=== PATIENT | male | born 1940 | race Caucasian/White ===

== ENCOUNTER → 2022-10-06 | Outpatient (CLI) | payer MEDICARE, OTHER, SELFPAY ==
[2022-10-06 13:08] LABS: Erythrocyte Sedimentation Rate 9 mm/hr (0-20)
[2022-10-06 13:13] LABS: Absolute Lymphocyte Count 2.74 X10^3/uL (0.83-4.51); Absolute Neutrophil Count 7.9 X10^3/uL (2.0-7.7); Basophil# 0.08 X10^3/uL; Basophil% 0.7 % (0-1); Eosinophil# 0.05 X10^3/uL; Eosinophils% 0.4 % (0-5); Hematocrit 38.5 % (40-54); Lymphocyte # 2.74 X10^3/ul (0.83-4.51); Lymphocyte % 23.2 % (19-41); Mean Corp Hgb Conc 31.2 g/dL (32-36); Mean Corpuscular Hgb 20.5 pg (27.0-32.0); Mean Corpuscular Volume 65.9 fL (80-94); Mean Platelet Vol. 10.1 fl (6.2-12.0); Monocyte# 0.94 X10^3/uL; NRBC Flagged by Analyzer 0 % (0-5); Neutrophil # 7.88 X10^3/uL (2.7-7.7); Neutrophil % 66.9 % (47-70); Platelet Count 265 K/mm3 (150-450); RBC Distribution Width CV 19.5 % (11.6-14.6); RBC Distribution Width SD 41.2 fl (35.1-43.9); Red Blood Count 5.84 M/mm3 (4.6-6.2); White Blood Count 11.8 K/mm3 (4.4-11.0)
[2022-10-06 13:18] LABS: ALB/GLOB Ratio 1.2 RATIO (0.9-2.4); AST(SGOT) 29 U/L (15-37); Alanine Aminotransfer ALT/SGPT 38 U/L (16-61); Albumin, Serum 3.9 g/dL (3.2-5.0); Alkaline Phosphatase 54 U/L (45-117); Anion Gap 10 (5-15); BUN 24 mg/dL (7-18); BUN/Creat Ratio 18.9 RATIO (10-20); CRP < 2.90 mg/L (0.0-3.0); Chloride 108 mmol/L (98-107); Creatinine, Serum 1.27 mg/dL (0.70-1.30); EST Glomerular Filtration Rate 58 mL/min (>60); Est Glom Filt Rate - Afr Amer 70 mL/min (>60); Globulin 3.2 g/dL (2.2-4.2); Glucose 103 mg/dL (74-106); Potassium 3.7 mmol/L (3.5-5.1); Protein, Total 7.1 g/dL (6.4-8.2); Rheumatoid Factor < 10.0 IU/mL (<15); Sodium Level 142 mmol/L (136-145)
[2022-10-06 13:32] LABS: Hepatitis B Surface Antibody Non-Reactive; Hepatitis B Surface Antigen Non-Reactive (Nonreactive); Hepatitis C Antibody Non-Reactive (Nonreactive)
[2022-10-07 13:07] LABS: CCP IgG Antibodies 6 units (0-19)
[2022-10-07 14:09] LABS: ANTINUCLEAR ANTIBODIES DIRECT Negative (Negative)
== END | disposition home or self-care (01) ==
PROVIDERS: PCP Registered Nurse; Referring Provider Internal Medicine Rheumatology; Visit Provider Internal Medicine Rheumatology
DX: M06.4 Inflammatory polyarthropathy (principal); I10 Essential (primary) hypertension; E78.5 Hyperlipidemia, unspecified
CPT/HCPCS: 36415; 80053; 85025; 85652; 86038; 86140; 86200; 86431; 86706; 86803; 87340

== ENCOUNTER → 2022-11-26 | Outpatient (CLI) | payer MEDICARE, OTHER, SELFPAY ==
[2022-11-26 12:44] LABS: Absolute Lymphocyte Count 1.78 X10^3/uL (0.83-4.51); Absolute Neutrophil Count 6.3 X10^3/uL (2.0-7.7); Basophil# 0.06 X10^3/uL; Basophil% 0.7 % (0-1); Eosinophil# 0.11 X10^3/uL; Eosinophils% 1.2 % (0-5); Hematocrit 35.5 % (40-54); Hemoglobin 11.4 g/dL (13.0-16.5); Lymphocyte # 1.78 X10^3/ul (0.83-4.51); Lymphocyte % 20.2 % (19-41); Mean Corp Hgb Conc 32.1 g/dL (32-36); Mean Corpuscular Hgb 21.1 pg (27.0-32.0); Mean Corpuscular Volume 65.6 fL (80-94); Mean Platelet Vol. 10.2 fl (6.2-12.0); Monocyte# 0.55 X10^3/uL; Monocyte% 6.2 % (0-10); NRBC Flagged by Analyzer 0 % (0-5); Neutrophil # 6.29 X10^3/uL (2.7-7.7); Neutrophil % 71.4 % (47-70); Platelet Count 271 K/mm3 (150-450); RBC Distribution Width CV 17.2 % (11.6-14.6); RBC Distribution Width SD 38.9 fl (35.1-43.9); Red Blood Count 5.41 M/mm3 (4.6-6.2); White Blood Count 8.8 K/mm3 (4.4-11.0)
[2022-11-26 12:55] LABS: ALB/GLOB Ratio 1.2 RATIO (0.9-2.4); AST(SGOT) 19 U/L (15-37); Alanine Aminotransfer ALT/SGPT 25 U/L (16-61); Albumin, Serum 3.7 g/dL (3.2-5.0); Alkaline Phosphatase 52 U/L (45-117); Anion Gap 6 (5-15); BUN 12 mg/dL (7-18); BUN/Creat Ratio 8.8 RATIO (10-20); Calcium,Total 9.1 mg/dL (8.5-10.1); Chloride 107 mmol/L (98-107); Creatinine, Serum 1.36 mg/dL (0.70-1.30); EST Glomerular Filtration Rate 53 mL/min (>60); Est Glom Filt Rate - Afr Amer 64 mL/min (>60); Globulin 3.1 g/dL (2.2-4.2); Glucose 132 mg/dL (74-106); Potassium 3.6 mmol/L (3.5-5.1); Protein, Total 6.8 g/dL (6.4-8.2); Sodium Level 139 mmol/L (136-145)
== END | disposition home or self-care (01) ==
LOC: MTLAB 09:47
PROVIDERS: PCP Registered Nurse; Referring Provider Internal Medicine Rheumatology; Visit Provider Internal Medicine Rheumatology
DX: M06.4 Inflammatory polyarthropathy (principal); I10 Essential (primary) hypertension
CPT/HCPCS: 36415; 80053; 85025

== ENCOUNTER → 2023-02-22 | Outpatient (CLI) | payer MEDICARE, OTHER, SELFPAY ==
[2023-02-22 12:16] LABS: Absolute Lymphocyte Count 2.05 X10^3/uL (0.83-4.51); Absolute Neutrophil Count 6.5 X10^3/uL (2.0-7.7); Basophil# 0.08 X10^3/uL; Basophil% 0.8 % (0-1); Eosinophil# 0.17 X10^3/uL; Eosinophils% 1.8 % (0-5); Hematocrit 38.3 % (40-54); Hemoglobin 11.7 g/dL (13.0-16.5); Lymphocyte # 2.05 X10^3/ul (0.83-4.51); Lymphocyte % 21.7 % (19-41); Mean Corp Hgb Conc 30.5 g/dL (32-36); Mean Corpuscular Hgb 19.8 pg (27.0-32.0); Mean Corpuscular Volume 64.9 fL (80-94); Mean Platelet Vol. 10.2 fl (6.2-12.0); Monocyte# 0.64 X10^3/uL; Monocyte% 6.8 % (0-10); NRBC Flagged by Analyzer 0.2 % (0-5); Neutrophil # 6.46 X10^3/uL (2.7-7.7); Neutrophil % 68.3 % (47-70); Platelet Count 227 K/mm3 (150-450); RBC Distribution Width CV 19.3 % (11.6-14.6); RBC Distribution Width SD 40.3 fl (35.1-43.9); White Blood Count 9.5 K/mm3 (4.4-11.0)
[2023-02-22 13:30] LABS: ALB/GLOB Ratio 1.2 RATIO (0.9-2.4); AST(SGOT) 20 U/L (15-37); Alanine Aminotransfer ALT/SGPT 30 U/L (16-61); Albumin, Serum 3.8 g/dL (3.2-5.0); Alkaline Phosphatase 65 U/L (45-117); Anion Gap 6 (5-15); BUN 12 mg/dL (7-18); BUN/Creat Ratio 9.4 RATIO (10-20); Chloride 111 mmol/L (98-107); Creatinine, Serum 1.28 mg/dL (0.70-1.30); EST Glomerular Filtration Rate 57 mL/min (>60); Est Glom Filt Rate - Afr Amer 69 mL/min (>60); Globulin 3.2 g/dL (2.2-4.2); Glucose 133 mg/dL (74-106); Potassium 3.8 mmol/L (3.5-5.1); Sodium Level 142 mmol/L (136-145)
== END | disposition home or self-care (01) ==
LOC: MTLAB 11:26
PROVIDERS: PCP Registered Nurse; Referring Provider Internal Medicine Rheumatology; Visit Provider Internal Medicine Rheumatology
DX: M06.4 Inflammatory polyarthropathy (principal); I10 Essential (primary) hypertension; E78.5 Hyperlipidemia, unspecified; N20.0 Calculus of kidney
CPT/HCPCS: 36415; 80053; 85025

== ENCOUNTER → 2023-06-07 | Outpatient (CLI) | payer MEDICARE, OTHER, SELFPAY ==
--- OUTSIDE RECORDS SUMMARY | 2023-06-07 15:02 | XMS RPT_ITS | CCD ---
Author Name Unknown Address [address] [place] [address] Organization [facility] Care Team Providers Care Drawer Fitter Name Role Phone JOSLYN FRYE, CHEYANNE Hutson Attending Unavailable SUNNY ROSAS-CAR SUPPLIER, WANDA Armstrong Referring Un available SUNNY ROSAS-CAR SUPPLIER, WANDA Armstrong Attending Un available SUNNY ROSAS-CAR SUPPLIER, WANDA Armstrong Primary Care Un available ROCK ROSAS-CAR SUPPLIERMIGUELINA Attending Unavailabl e SUNNY HENLEYN-CAR SUPPLIER, WANDA Armstrong Primary Care Un available SUNNY HENLEYN-CAR SUPPLIER, WANDA Armstrong Primary Care Physi rodrick Medications Current Medications Medication Drug Class(es) Dates Sig (Normalized) Sig (Original) acetaminophen 325 mg / HYDROcodone bitartrate 5 mg oral tablet (1 source) Opioid Agonist Start: 07-10-2022 End: 07-13-2022 take 1 tablet by mouth every six hours as needed for pain Medanales 325- 5 mg oral tablet Dose = 1 tab(s), Oral, q6h, PRN for pain, X 3 day(s), # 12 tab(s), 0 Refill(s), [facility]acy: [id number], Right hip pain, 172, cm, 02/17/22 7:27:00 EDT, Height, 89.1, kg, 02/17/22 7:27:00 EDT, Dosing Weight Start Date: 07/10/22 Stop Date: 07/13/22 Status: Ordered amLODIPine 5 mg oral tablet (3 sources) Dihydropyridine Calcium Channel Camelia Start: 03-04-2023 End: 02-27-2024 amLODIPine 5 mg oral tablet Dose : 5 mg = 1 tab(s), Oral, qDay, # 90 tab(s), 3 Refill(s), Pharmacy: [facility]/pharmacy #[id number], 172, cm, 03/04/23 13:41:00 EDT, Height, kg, 03/04/23 13:34:00 EDT, Dosing Weight Start Date: 03/04/23 Stop Date: 02/27/24 Status: Ordered Completed/Discontinued Medications Medication Drug Class(es) Dates Sig (Normalized) Sig (Original) Misc Medication (1 source) Start: 03-04-2023 Misc Medication See Instructions, 1 Tablespoons daily of Apple Cider Vinegar, 0 Refill(s), 89.1 Start Date: 03/04/23 Status: Ordered Problems Active Problems Problem Classification Problem Date Documented Date Episodic/Chronic Calculus of urinary tract (3 sources) Recurrent kidney stone 02-17-2022 Episodic Chronic kidney disease (1 source) Chronic kidney disease stage 3 03-04-2023 Chronic Diabetes mellitus without complication (1 source) Hyperglycemia 03-04-2023 Episodic Essential hypertension (3 sources) Hypertensive disorder 02-17-2022 Chronic Genitourinary symptoms and ill-defined conditions (3 sources) Nocturia 02-17-2022 Episodic Hemorrhoids (3 sources) Hemorrhoids 02-17-2022 Episodic Malaise and fatigue (2 sources) Other fatigue; Translations: [Other fatigue] Onset: 05-26-2023 Episodic Other hematologic conditions (3 sources) History of anemia 02-17-2022 Episodic Other male genital disorders (3 sources) 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 Other non-traumatic joint disorders (1 source) Pain in right hip joint; Translations: [Pain in right hip] Onset: 07-10-2022 Episodic Unclassified (1 source) Patient encounter status 03-04-2023 Past or Other Problems Problem Classification Problem Date Documented Da te Episodic/Chronic Other non-traumatic joint disorders (2 sources) Pain in right hip; Translations: [Pain in right hip] Onset: 07-10-2022 Episodic Results Test Name Value Interpretation Reference Range Facil ity Vital Signs Date Time Vital Sign Value Performing Clinician Melchor arrieta 07-10-2022 10:19-0500 Body temperature 97.7 [degF] CHEYANNE JORGENSEN MD [facility] 07-10-2022 10:19-0500 Diastolic Blood Pressure Non-Invasive 82 1 CHEYANNE JORGENSEN MD [facility] 07-10-2022 10:19-0500 Heart rate 75 /min CHEYANNE JORGENSEN MD [facility] 07-10-2022 10:19-0500 Respiratory rate 18 /min CHEYANNE JORGENSEN MD [facility] 07-10-2022 10:19-0500 Systolic Blood Pressure Non-Invasive 157 1 CHEYANNE JORGENSEN MD [facility] Encounters Encounter Date Encounter Type Care Provider Facility Start: 05-26-2023 End: 05-31-2023 ambulatory [facility] Facility:B Start: 05-26-2023 End: 05-30-2023 Outreach Lab [facility] Start: 07-23-2022 End: 08-31-2022 ambulatory WANDA CORREA [employer] [employer] SUP[employer]IER Facility:B Start: 07-10-2022 End: 07-10-2022 Emergency department patient visit CHEYANNE JORGENSEN MD Facility:B Start: 07-10-2022 End: 07-10-2022 Emergency department patient visit CHEYANNE JORGENSEN MD [facility] Start: 03-04-2022 End: 03-04-2022 Patient encounter procedure WANDA CORREA [employer]NAL [employer] Procedures Date Procedure Procedure Detail Performing Clinician Infectious disease (disorder) WANDA CORREA INTERNAL WHOLESALER-CAR SUPPLIER Immunizations Immunization Date Immunization Notes Care Provider [facility] 03-04-2023 influenza, high dose seasonal, preservative-free; Translations: [Fluad Quadrivalent PF ] [facility] Payers Date Payer Category Payer Private Health Insurance [id number] 2022 Medicare [id number] 1940 Unknown [id number] 1940 Unknown [id number] 1940 Unknown [id number] Social History Date Type Detail Facility Start: 02-17-2022 Tobacco smoking status Never s moked tobacco (finding) [facility] Sex Assigned At Sex [facility] Functional Status Date Assessment Result Facility 07-10-2022 Functional Status Independent [facility] 07-10-2022 Functional Status Standard Safet y ID band on, Call device within reach, Bed in low position, Wheels locked, Upper/Half-Length side-rails up, Phone within reach, personal items within reach, Assistive devices within reach, Toileting device within reach, Bedside Cart Locked, Visitor at bedside, Safety level maintained [facility] Mental Status Date Assessment Result Facility 07-10-2022 Mental Status Orientation Oriented x 4 [facility] 07-10-2022 Mental Status [facility] Clinical Notes 03-04-2022 to 05-26-2023 LaboratoryLaboratory Note Date & Type Note Facility 05-26-2023 SARS-CoV-2 (COVID-19) RNA JL+probe Ql (Nph) Negative *NA* (05/26/23 11:28 AM) AO Auto Urine SS 03-04-2023 Evaluation + Plan note Future Scheduled [id number] Hemoglobin 03/04/23Lipid Profile 03/04/23Lipid Profile 08/27/22Albumin/Creatinine Ratio, Random Urine 03/04/23Microalbumin Level Urine 08/27/22Complete Metabolic Panel 08/27/22 [facility]thel 07-10-2022 Hospital Discharg e instructions Patient Education 07/10/2022 11:18:38 Osteoarthritis Osteoarthritis Osteoarthritis (also called degenerative joint disease) happens when the cartilage in a joint becomes damaged and worn. This may be due to age, wear and tear, overuse of the joint, or other problems. Osteoarthritis can affect any joint. But it is most common in hands, knees, spine, hips, and feet. Symptoms include joint stiffness, pain, and swelling. Home care When a joint is more sore than usual, rest it for a day or two. Heat can help relieve stiffness. Take a hot bath or apply a heating pad for up to 30 minutes at a time. If symptoms are worse in the morning, using heat just after awakening can help relax the muscle and soothe the joints. Ice helps relieve pain and swelling. It is often used after activity. Use a cold pack wrapped in a thin cloth on the joint for 10 to 15 minutes at a time. Alternating hot and cold can also help relieve pain. Try this for 20 minutes at a time, several times per day. Exercise helps prevent the muscles and ligaments around the joint from becoming weak. It also helps maintain function in the joint. Be as active as you can. Talk to your healthcare provider about what activity program is best for you. Excess weight puts a lot of extra strain on weight-bearing joints of the lower back, hips, knees, feet and ankles. If you are overweight, talk to your healthcare provider about a safe and effective weight loss program. Use anti-inflammatory medicines as prescribed for pain. This includes acetaminophen or NSAIDs such as ibuprofen or naproxen. If needed, topical or injected medicines may be recommended. Talk to your healthcare provider if these options are not enough to manage your pain. Talk with your healthcare provider about devices that might help improve your function and reduce pain. Follow-up care Follow up with your healthcare provider as advised by our staff. When to seek medical advice Call your healthcare provider right away if any of these occur: Redness or swelling of a painful joint Discharge or pus from a painful joint Fever of 100.4 F (38 C) or higher, or as directed by your healthcare provider Worsening joint pain Decreased ability to move the joint or bear weight on the joint [id number] [employer]. [address] [place] [address]69. All rights reserved. This information is not intended as a substitute for professional medical care. Always follow your healthcare professional's instructions. 07/10/2022 11:18:32 Hip Strain Hip Strain You have a strain of the muscles around the hip joint. A muscle strain is a stretching or tearing of muscle fibers. This causes pain, especially when you move that muscle. There may also be some swelling and bruising. Home care Stay off the injured leg as much as possible until you can walk on it without pain. If you have a lot of pain with walking, crutches or a walker may be prescribed. These can be rented or purchased at many pharmacies and surgical or orthopedic supply stores. Follow your healthcare provider's advice about when to start putting weight on that leg. Apply an ice pack over the injured area for 15 to 20 minutes every 3 to 6 hours. Do this for the first 24 to 48 hours. You can make an ice pack by filling a plastic bag that seals at the top with ice cubes and then wrapping it with a thin towel. Be careful not to injure your skin with the ice treatments. Ice should never be applied directly to skin. Continue the use of ice packs for relief of pain and swelling as needed. After 48 hours, apply heat (warm shower or warm bath) for 15 to 20 minutes several times a day, or alternate ice and heat. You may use kixl-kem-[id number] pain medicine to control pain, unless another pain medicine was prescribed. If you have chronic liver or kidney disease or ever had a stomach ulcer or gastrointestinal bleeding, talk with your healthcare provider before using these medicines. If you play sports, you may resume these activities when you are able to hop and run on the injured leg without pain. Follow-up care Follow up with your healthcare provider, or as advised. If your symptoms don't start to get better after a week, more tests may be needed. If X-rays were taken, you will be told of any new findings that may affect your care. When to seek medical advice Call your healthcare provider right away if any of these occur: Increased swelling or bruising Increased pain Losing the ability to put weight on the injured side [phone] [employer]. [address] [place] [address]855. All rights reserved. This information is not intended as a substitute for professional medical care. Always follow your healthcare professional's instructions. Follow Up Care 07/10/2022 10:10:22 With:ADAM COLE MD Address: [address] [employer] [place] [address] [phone] When:2-4 days [facility] 07-10-2022 Emergency department Discharge summary Discharge Instructions Thank you for allowing [facility] to assist you with your healthcare needs. The following is important discharge information regarding your hospital visit. Diagnosis from Today's Visit Right hip pain Hip pain-swelling What to Do Next Instructions from Your Care Team No qualifying data available. Post Acute Orders No qualifying data available. You Need to Schedule the Following Appointments Follow Up with ADAM COLE MD When Within 2-4 days Where: [address] [facility] [address] [facility] [place] [address] [phone] Allergies NKA Medications Please ask your primary doctor or pharmacist before taking any other medication not listed, including over the counter drugs, herbal medications, vitamins and or supplements as they may interact with your home medications. What How Much When Why Instructions Last Dose New acetaminophen-hydrocodone (Medanales 325- 5 mg oral tablet) 1 tab(s) by mouth Every 6 hours as needed for for pain Right hip pain Duration: 3 Days Pickup at [facility]/pharmacy #[id number] New predniSONE (predniSONE 20 mg oral tablet) 2 tab(s) by mouth Once a day with a meal Right hip pain Duration: 6 Days Pickup at [facility]/pharmacy #[id number] Unchanged amLODIPine (amLODIPine 5 mg oral tablet) 1 tab(s) by mouth Once a day Duration: 90 Days Unchanged atenolol (atenolol 50 mg oral tablet) 1 tab(s) by mouth Once a day Duration: 90 Days Unchanged cholecalciferol (Vitamin D3 125 mcg (5000 intl units) oral capsule) 1 cap by mouth Once a day Duration: 90 Days Unchanged cyanocobalamin (Vitamin B12 2500 mcg sublingual tablet) 1 tab(s) under the tongue Every day Fatigue Duration: 90 Days Unchanged multivitamin (Multivitamin) 1 tab(s) by mouth Every day Unchanged multivitamin (Super B Complex oral tablet) 1 tab(s) by mouth Every day Unchanged pantoprazole (pantoprazole 40 mg oral enteric coated tablet) 1 tab(s) by mouth Once a day before a meal Duration: 90 Days Unchanged simvastatin (simvastatin 20 mg oral tablet) 1 tab(s) by mouth Once a day Duration: 90 Days Unchanged tamsulosin (tamsulosin 0.4 mg oral capsule) 1 cap by mouth Once a day Duration: 90 Days Pharmacy Information [facility]/pharmacy #[id number]: [address], [place] [id number] [phone] Please take this list to your next doctor s visit. Bring all medications you take, including over the counter medications, herbals and other supplements with you to your doctor s visit. Patients and families are reminded to discard old lists and to update any records with all medication providers or retail pharmacies. Medication Leaflets prednisone (PRED ni sone) Jennifer What is the most important information I should know about prednisone? You should not use prednisone if you have a fungal infection anywhere in your body. You should not stop using prednisone suddenly. Follow your doctor's instructions about tapering your dose. What is prednisone? Prednisone is a steroid that reduces inflammation in the body, and also suppresses your immune system. Prednisone is used to treat many different conditions such as hormonal disorders, skin diseases, arthritis, lupus, psoriasis, allergic conditions, ulcerative colitis, Crohn's disease, eye diseases, lung diseases, asthma, tuberculosis, blood cell disorders, kidney disorders, leukemia, lymphoma, multiple sclerosis, organ transplant rejection, swelling from a brain tumor or injury. Prednisone may also be used for purposes not listed in this medication guide. What should I discuss with my healthcare provider before taking prednisone? You should not use prednisone if you are allergic to it, or if you have a fungal infection anywhere in your body. Steroid medication can weaken your immune system, making it easier for you to get an infection or worsening an infection you already have. Tell your doctor about any illness or infection you've had within the past several weeks. Tell your doctor if you have ever had: heart problems, high blood pressure, or a heart attack; glaucoma or cataracts; herpes infection of the eyes; past or present tuberculosis; a parasite infection that causes diarrhea (such as threadworms); any illness that causes diarrhea; underactive thyroid; diabetes; a stomach ulcer, diverticulitis; a colostomy or ileostomy; osteoporosis or low bone mineral density (steroid medication can increase your risk of bone loss); low levels of calcium or potassium in your blood; cirrhosis or other liver disease; mental illness or psychosis; or a muscle disorder such as myasthenia gravis. Long-term use of steroids may lead to bone loss (osteoporosis), especially if you smoke or drink alcohol, if you do not exercise, or if you do not get enough vitamin D or calcium in your diet. It is not known whether this medicine will harm an unborn baby. Tell your doctor if you are or plan to become . You should not breastfeed while using prednisone. How should I take prednisone? Follow all directions on your prescription label and read all medication guides or instruction sheets. Your doctor may occasionally change your dose. Use the medicine exactly as directed. Prednisone is taken daily or every other day, depending on the condition being treated. You may need to take the medicine at a certain time of day. Follow your doctor's instructions about when and how often to take this medicine. Take with food if prednisone upsets your stomach. Measure liquid medicine carefully. Use the dosing syringe provided, or use a medicine dose-measuring device (not a kitchen spoon). Swallow the delayed-release tablet whole and do not crush, chew, or break it. Prednisone can weaken (suppress) your immune system, and you may get an infection more easily. Call your doctor if you have signs of infection (fever, weakness, cold or flu symptoms, skin sores, diarrhea, frequent or recurring illness). If you have major surgery or a severe injury or infection, your prednisone dose needs may change. Make sure any doctor caring for you knows you are using this medicine. If you use this medicine long-term, you may need medical tests and vision exams. In case of emergency, wear or carry medical identification to let others know you use a steroid. You should not stop using prednisone suddenly. Follow your doctor's instructions about tapering your dose. Store at room temperature away from moisture, heat, and light. What happens if I miss a dose? Take the medicine as soon as you can, but skip the missed dose if it is almost time for your next dose. Do not take two doses at one time. What happens if I overdose? Seek emergency medical attention or call the Poison Help line at . High doses or long-term use of prednisone can lead to thinning skin, easy bruising, changes in body fat (especially in your face, neck, back, and waist), increased acne or facial hair, menstrual problems, impotence, or loss of interest in sex. What should I avoid while taking prednisone? Do not receive a 'live' vaccine while using prednisone. The vaccine may not work as well and may not fully protect you from disease. Live vaccines include measles, mumps, rubella (MMR), polio, rotavirus, typhoid, yellow fever, varicella (chickenpox), zoster (shingles), and nasal flu (influenza) vaccine. Avoid being near people who are sick or have infections. Call your doctor for preventive treatment if you are exposed to chickenpox or measles. These conditions can be serious or even fatal in people who are using steroid medicine. Avoid drinking alcohol. What are the possible side effects of prednisone? Get emergency medical help if you have signs of an allergic reaction: hives; difficult breathing; swelling of your face, lips, tongue, or throat. Call your doctor at once if you have: muscle pain or weakness; blurred vision, tunnel vision, eye pain, or seeing halos around lights; severe depression, changes in personality, unusual thoughts or behavior; bloody or tarry stools, coughing up blood or vomit that looks like coffee grounds; swelling, rapid weight gain, feeling short of breath; irregular heartbeats; severe headache, pounding in your neck or ears; decreased adrenal gland hormones--muscle weakness, tiredness, diarrhea, nausea, menstrual changes, skin discoloration, craving salty foods, and feeling light-headed; or low potassium level--leg cramps, constipation, irregular heartbeats, fluttering in your chest, increased thirst or urination, numbness or tingling, muscle weakness or limp feeling. Prednisone can affect growth in children. Tell your doctor if your child is not growing at a normal rate while using this medicine. Common side effects may include: weight gain (especially in your face or your upper back and torso); increased appetite; mood changes, trouble sleeping; changes in your menstrual periods; problems with memory or thought; muscle or joint pain; weakness; headache, dizziness, spinning sensation; nausea, bloating, loss of appetite; slow wound healing; or acne, increased sweating, thinning skin, bruising, pinpoint spots under your skin. This is not a complete list of side effects and others may occur. Call your doctor for medical advice about side effects. You may report side effects to FDA at 4-967-KOM-4224. What other drugs will affect prednisone? Sometimes it is not safe to use certain medications at the same time. Some drugs can affect your blood levels of other drugs you take, which may increase side effects or make the medications less effective. Tell your doctor about all your current medicines. Many drugs can affect prednisone, especially: bupropion; cyclosporine; digoxin; ketoconazole; an antibiotic; control pills or hormone replacement therapy; a diuretic or 'water pill'; insulin or oral diabetes medicine; a blood thinner--warfarin, Coumadin, Jantoven; or NSAIDs (nonsteroidal anti-inflammatory drugs)--aspirin, ibuprofen (Advil, Motrin), naproxen (Aleve), celecoxib, diclofenac, indomethacin, meloxicam, and others. This list is not complete and many other drugs may affect prednisone. This includes prescription and hsng-rzr-[id number] medicines, vitamins, and herbal products. Not all possible drug interactions are listed here. Where can I get more information? Your pharmacist can provide more information about prednisone. Remember, keep this and all other medicines out of the reach of children, never share your medicines with others, and use this medication only for the indication prescribed. Every effort has been made to ensure that the information provided by [employer]. ('[employer]') is accurate, up-to-date, and complete, but no guarantee is made to that effect. Drug information contained herein may be time sensitive. [employer] information has been compiled for use by healthcare practitioners and consumers in the [place] and therefore [employer] does not warrant that uses outside of the [place] are appropriate, unless specifically indicated otherwise. [employer] drug information does not endorse drugs, diagnose patients or recommend therapy. [employer] drug information is an informational resource designed to assist licensed healthcare practitioners in caring for their patients and/or to serve consumers viewing this service as a supplement to, and not a substitute for, the expertise, skill, knowledge and judgment of healthcare practitioners. The absence of a warning for a given drug or drug combination in no way should be construed to indicate that the drug or drug combination is safe, effective or appropriate for any given patient. [facility] does not assume any responsibility for any aspect of healthcare administered with the aid of information [facility] provides. The information contained herein is not intended to cover all possible uses, directions, precautions, warnings, drug interactions, allergic reactions, or adverse effects. If you have questions about the drugs you are taking, check with your doctor, nurse or pharmacist. Copyright 6689-7244 [employer]. Version: 10.. Revision Date: 08/10/2018. acetaminophen and hydrocodone (a SEET a MIN oh fen and ruperto droe KOE done) Hycet, Lorcet, Medanales, Verdrocet, Vicodin, Xodol, Zamicet What is the most important information I should know about acetaminophen and hydrocodone? MISUSE OF OPIOID MEDICINE CAN CAUSE ADDICTION, OVERDOSE, OR . Keep the medication in a place where others cannot get to it. Taking opioid medicine during may cause life-threatening withdrawal symptoms in the . Fatal side effects can occur if you use opioid medicine with alcohol, or with other drugs that cause drowsiness or slow your breathing. Stop taking this medicine and call your doctor right away if you have skin redness or a rash that spreads and causes blistering and peeling. What is acetaminophen and hydrocodone? Acetaminophen and hydrocodone is a combination medicine used to relieve moderate to severe pain. Acetaminophen and hydrocodone contains an opioid medicine, and may be habit-forming. Acetaminophen and hydrocodone may also be used for purposes not listed in this medication guide. What should I discuss with my healthcare provider before taking acetaminophen and hydrocodone? You should not use this medicine if you are allergic to acetaminophen or hydrocodone, or if you have: severe asthma or breathing problems; or a blockage in your stomach or intestines. Tell your doctor if you have ever had: breathing problems, sleep apnea (breathing stops during sleep); liver disease; a drug or alcohol addiction; kidney disease; a head injury or seizures; urination problems; or problems with your thyroid, pancreas, or gallbladder. If you use opioid medicine while you are , your baby could become dependent on the drug. This can cause life-threatening withdrawal symptoms in the baby after it is born. Babies born dependent on opioids may need medical treatment for several weeks. Ask a doctor before using opioid medicine if you are . Tell your doctor if you notice severe drowsiness or slow breathing in the nursing baby. How should I take acetaminophen and hydrocodone? Follow all directions on your prescription label. Never take this medicine in larger amounts, or for longer than prescribed. An overdose can damage your liver or cause . Tell your doctor if you feel an increased urge to use more of this medicine. Never share this medicine with another person, especially someone with a history of drug abuse or addiction. MISUSE CAN CAUSE ADDICTION, OVERDOSE, OR . Keep the medicine in a place where others cannot get to it. Selling or giving away this medicine is against the law. Measure liquid medicine carefully. Use the dosing syringe provided, or use a medicine dose-measuring device (not a kitchen spoon). If you need surgery or medical tests, tell the doctor ahead of time that you are using this medicine. You should not stop using this medicine suddenly. Follow your doctor's instructions about tapering your dose. Store at room temperature away from moisture and heat. Keep track of your medicine. You should be aware if anyone is using it improperly or without a prescription. Do not keep leftover opioid medication. Just one dose can cause in someone using this medicine accidentally or improperly. Ask your pharmacist where to locate a drug take-back disposal program. If there is no take-back program, flush the unused medicine down the toilet. What happens if I miss a dose? Since this medicine is used for pain, you are not likely to miss a dose. Skip any missed dose if it is almost time for your next dose. Do not use two doses at one time. What happens if I overdose? Seek emergency medical attention or call the Poison Help line at . An overdose of this medicine can be fatal, especially in a child or other person using the medicine without a prescription. Overdose symptoms may include nausea, vomiting, sweating, severe drowsiness, pinpoint pupils, slow breathing, or no breathing. Your doctor may recommend you get naloxone (a medicine to reverse an opioid overdose) and keep it with you at all times. A person caring for you can give the naloxone if you stop breathing or don't wake up. Your caregiver must still get emergency medical help and may need to perform CPR (cardiopulmonary resuscitation) on you while waiting for help to arrive. Anyone can buy naloxone from a pharmacy or local health department. Make sure any person caring for you knows where you keep naloxone and how to use it. What should I avoid while taking acetaminophen and hydrocodone? Avoid driving or operating machinery until you know how this medicine will affect you. Dizziness or drowsiness can cause falls, accidents, or severe injuries. Do not drink alcohol. Dangerous side effects or could occur. Ask a doctor or pharmacist before using any other medicine that may contain acetaminophen (sometimes abbreviated as APAP). Taking certain medications together can lead to a fatal overdose. What are the possible side effects of acetaminophen and hydrocodone? Get emergency medical help if you have signs of an allergic reaction: hives; difficulty breathing; swelling of your face, lips, tongue, or throat. Opioid medicine can slow or stop your breathing, and may occur. A person caring for you should give naloxone and/or seek emergency medical attention if you have slow breathing with long pauses, blue colored lips, or if you are hard to wake up. In rare cases, acetaminophen may cause a severe skin reaction that can be fatal. This could occur even if you have taken acetaminophen in the past and had no reaction. Stop taking this medicine and call your doctor right away if you have skin redness or a rash that spreads and causes blistering and peeling. Call your doctor at once if you have: noisy breathing, sighing, shallow breathing, breathing that stops; a light-headed feeling, like you might pass out; liver problems--nausea, upper stomach pain, tiredness, loss of appetite, dark urine, naif-colored stools, jaundice (yellowing of the skin or eyes); low cortisol levels-- nausea, vomiting, loss of appetite, dizziness, worsening tiredness or weakness; o high levels of serotonin in the body--agitation, hallucinations, fever, sweating, shivering, fast heart rate, muscle stiffness, twitching, loss of coordination, nausea, vomiting, diarrhea. Serious breathing problems may be more likely in older adults and in those who are debilitated or have wasting syndrome or chronic breathing disorders. Common side effects include: dizziness, drowsiness, feeling tired; nausea, vomiting, stomach pain; constipation; or headache. This is not a complete list of side effects and others may occur. Call your doctor for medical advice about side effects. You may report side effects to FDA at 6-280-GCM-0788. What other drugs will affect acetaminophen and hydrocodone? You may have breathing problems or withdrawal symptoms if you start or stop taking certain other medicines. Tell your doctor if you also use an antibiotic, antifungal medication, heart or blood pressure medication, seizure medication, or medicine to treat HIV or hepatitis C. Opioid medication can interact with many other drugs and cause dangerous side effects or . Be sure your doctor knows if you also use: cold or allergy medicines, bronchodilator asthma/COPD medication, or a diuretic ('water pill'); medicines for motion sickness, irritable bowel syndrome, or overactive bladder; other opioids--opioid pain medicine or prescription cough medicine; a sedative like Valium--diazepam, alprazolam, lorazepam, Xanax, Klonopin, Versed, and others; drugs that make you sleepy or slow your breathing--a sleeping pill, muscle relaxer, medicine to treat mood disorders or mental illness; drugs that affect serotonin levels in your body--a stimulant, or medicine for depression, Parkinson's disease, migraine headaches, serious infections, or nausea and vomiting. This list is not complete. Other drugs may affect acetaminophen and hydrocodone, including prescription and afnx-lwg-clbecbj medicines, vitamins, and herbal products. Not all possible interactions are listed here. Where can I get more information? Your doctor or pharmacist can provide more information about acetaminophen and hydrocodone. Remember, keep this and all other medicines out of the reach of children, never share your medicines with others, and use this medication only for the indication prescribed. Every effort has been made to ensure that the information provided by [employer]. ('[employer]') is accurate, up-to-date, and complete, but no guarantee is made to that effect. Drug information contained herein may be time sensitive. [employer] information has been compiled for use by healthcare practitioners and consumers in the [place] and therefore [employer] does not warrant that uses outside of the [place] are appropriate, unless specifically indicated otherwise. [employer] drug information does not endorse drugs, diagnose patients or recommend therapy. [employer] drug information is an informational resource designed to assist licensed healthcare practitioners in caring for their patients and/or to serve consumers viewing this service as a supplement to, and not a substitute for, the expertise, skill, knowledge and judgment of healthcare practitioners. The absence of a warning for a given drug or drug combination in no way should be construed to indicate that the drug or drug combination is safe, effective or appropriate for any given patient. [facility] does not assume any responsibility for any aspect of healthcare administered with the aid of information [facility] provides. The information contained herein is not intended to cover all possible uses, directions, precautions, warnings, drug interactions, allergic reactions, or adverse effects. If you have questions about the drugs you are taking, check with your doctor, nurse or pharmacist. Copyright 2021-8096 [employer]. Version: 16.03. Revision Date: 06/17/2020. Education Materials Osteoarthritis Osteoarthritis (also called degenerative joint disease) happens when the cartilage in a joint becomes damaged and worn. This may be due to age, wear and tear, overuse of the joint, or other problems. Osteoarthritis can affect any joint. But it is most common in hands, knees, spine, hips, and feet. Symptoms include joint stiffness, pain, and swelling. Home care When a joint is more sore than usual, rest it for a day or two. Heat can help relieve stiffness. Take a hot bath or apply a heating pad for up to 30 minutes at a time. If symptoms are worse in the morning, using heat just after awakening can help relax the muscle and soothe the joints. Ice helps relieve pain and swelling. It is often used after activity. Use a cold pack wrapped in a thin cloth on the joint for 10 to 15 minutes at a time. Alternating hot and cold can also help relieve pain. Try this for 20 minutes at a time, several times per day. Exercise helps prevent the muscles and ligaments around the joint from becoming weak. It also helps maintain function in the joint. Be as active as you can. Talk to your healthcare provider about what activity program is best for you. Excess weight puts a lot of extra strain on weight-bearing joints of the lower back, hips, knees, feet and ankles. If you are overweight, talk to your healthcare provider about a safe and effective weight loss program. Use anti-inflammatory medicines as prescribed for pain. This includes acetaminophen or NSAIDs such as ibuprofen or naproxen. If needed, topical or injected medicines may be recommended. Talk to your healthcare provider if these options are not enough to manage your pain. Talk with your healthcare provider about devices that might help improve your function and reduce pain. Follow-up care Follow up with your healthcare provider as advised by our staff. When to seek medical advice Call your healthcare provider right away if any of these occur: Redness or swelling of a painful joint Discharge or pus from a painful joint Fever of 100.4 F (38 C) or higher, or as directed by your healthcare provider Worsening joint pain Decreased ability to move the joint or bear weight on the joint 9021-7201 [employer]. [address] [place], [place] [id number]. All rights reserved. This information is not intended as a substitute for professional medical care. Always follow your healthcare professional's instructions. Hip Strain You have a strain of the muscles around the hip joint. A muscle strain is a stretching or tearing of muscle fibers. This causes pain, especially when you move that muscle. There may also be some swelling and bruising. Home care Stay off the injured leg as much as possible until you can walk on it without pain. If you have a lot of pain with walking, crutches or a walker may be prescribed. These can be rented or purchased at many pharmacies and surgical or orthopedic supply stores. Follow your healthcare provider's advice about when to start putting weight on that leg. Apply an ice pack over the injured area for 15 to 20 minutes every 3 to 6 hours. Do this for the first 24 to 48 hours. You can make an ice pack by filling a plastic bag that seals at the top with ice cubes and then wrapping it with a thin towel. Be careful not to injure your skin with the ice treatments. Ice should never be applied directly to skin. Continue the use of ice packs for relief of pain and swelling as needed. After 48 hours, apply heat (warm shower or warm bath) for 15 to 20 minutes several times a day, or alternate ice and heat. You may use jpxx-xlh-pjrjgev pain medicine to control pain, unless another pain medicine was prescribed. If you have chronic liver or kidney disease or ever had a stomach ulcer or gastrointestinal bleeding, talk with your healthcare provider before using these medicines. If you play sports, you may resume these activities when you are able to hop and run on the injured leg without pain. Follow-up care Follow up with your healthcare provider, or as advised. If your symptoms don't start to get better after a week, more tests may be needed. If X-rays were taken, you will be told of any new findings that may affect your care. When to seek medical advice Call your healthcare provider right away if any of these occur: Increased swelling or bruising Increased pain Losing the ability to put weight on the injured side [id number] [employer]. [address] [place] [address]. All rights reserved. This information is not intended as a substitute for professional medical care. Always follow your healthcare professional's instructions. Additional Information VACCINATE! IT SAVES LIVES! Members of the community who have not yet received the COVID-19 vaccine and would like to receive it can visit one of [facility] vaccine clinics. There are many vaccine clinic locations within the [facility]. For locations and available times, please visit [email or web address] [email or web address] It is important to note that some COVID mobile vaccine clinics are held outdoors and may be canceled in rainy or stormy conditions. To learn more about pediatric vaccinations (ages 5-11), we invite you to visit the [facility] webpage. https://[email or web address]/p [email or web address]-Bnvly-Hfvzsdgnrzi-Freq lfjdof-Scqfq-Alndamfow.html To learn more about the COVID-19 vaccine, we invite you to visit the CDC website for a list of frequently asked questions. https://www.cdc.gov/coronavirus/ 2019-ncov/vaccines/faq.html [facility] [facility] Patient Portal Access Instructions: Stay connected with your healthcare team and access your personal medical information anytime with the [employer] Patient Portal. If you would like a full copy of your medical records please contact the [facility] Medical Records Department Tuesday through Tuesday between 8a.m. and 4:30p.m. Please follow the directions below to access the portal: 1.Access the email account you provided upon registration to the [facility].2.Look for an invitation email from [facility].3.Open the email and access the invitation link: Accept Invitation to [employer].Fill in the required reis to create your account. Sign into [email or web address] with your username and password that you created in the above steps to stay up to date. You can then view a summary of results, a summary of your visits, and the ability to download your summaries to your computer or send the information securely to a physician. Remember that your healthcare information is confidential, so carefully consider who you will allow to register on the [employer] Patient Portal for access to your information. You can also access the [employer] Patient Portal on the [employer]. Simply click on Health Records under Health Data and then click on the [employer] logo. HOW TO SAFELY DISPOSE OF PRESCRIPTION MEDICATIONS Please use one of the following methods to safely dispose of your unused medications. 1.Use a drug disposal kit: the drug disposal pouch allows you to safely discard your old and unused drugs. Ask your nurse to give you one when you are discharged.2.Visit a local take-back location: Many local pharmacies and police departments have programs that collect old and unwanted prescription drugs. Call your local pharmacy or go to http://[employer]pore[employer].Nekst/2K6Sh4z to find one close to you.3.Make use of household items: Use cat litter or old coffee grounds to dispose medications if other options are not available. Mix your drugs with these household products, seal them in an airtight container and throw it into the garbage. Call [facility]: [phone] to be sure your drugs can be disposed of in this way. Some medicines may require a different approach.4.Never flush your medications down the toilet. IF YOU HAVE BEEN PRESCRIBED AN OPIOIDS FOR PAIN If you have been prescribed an opioid (such as hydrocodone, oxycodone or morphine), it is critical to understand the possible side effects and risks of opioid pain medications. Even when taken as directed, opioids can have several side effects including: Tolerance, meaning you might need to take more of a medication for the same pain relief. Nausea, vomiting and/or constipation. Sleepiness, dizziness, dry mouth, confusion, depression or itching. Physical dependence, meaning you have withdrawal symptoms when a medication is stopped ? this can develop within a few days. KNOW YOUR RESPONSIBILITIES It is important to know exactly how much and how often to take the opioid pain medications you are prescribed. Never take opioids in higher amounts or more often than prescribed. Do not combine opioids with alcohol or other drugs that cause drowsiness, such as benzodiazepines, also known as benzos, including diazepam and alprazolam, muscle relaxants or sleep aids. Never sell or share prescription opioids. This is illegal. Store opioids in a secure place and out of reach of others (including children, family, friends and visitors). The last page(s) of this document has been signed and retained as a CHART COPY Signatures Patient Education Materials Osteoarthritis Hip Strain Medication Leaflets prednisone, acetaminophen and hydrocodone My discharge plan and instructions have been reviewed and explained to me and I,JOSE R GTZ understand my current condition and have read and understand these discharge instructions. I have received a written copy of the plan/instructions. If I have questions, I am aware that I should contact my doctor. Patient/Manager Security Signature: Date/Time: Relationship to Patient: Witness Name/Signature: Date/Time: [facility] 07-10-2022 Note ORIGINAL EXAMINATION: ONE XRAY VIEW OF THE PELVIS AND TWO XRAY VIEWS RIGHT HIP07/10/2022 11:06 am COMPARISON: None. HISTORY: ORDERING SYSTEM PROVIDED HISTORY: Reason for Exam: pain FINDINGS: The pelvic ring is intact. No acute fracture or dislocation is identified. Degenerative changes seen of the hips. Multifocal enthesophytes identified in the pelvis. The right hip is intact. No acute fracture or dislocation is identified. IMPRESSION: No acute fracture or dislocation. Degenerative changes Interpreted by: Lino Bradford MD Preliminary Report By: Lino Bradford MD Electronically signed By Lino Bradford MD Dictated Date: 07/10/2022 11:09:22 AM Prelim Date: 07/10/2022 11:10:43 AM Sign Date: 07/10/2022 11:10:43 AM Ordering Provider: CHEYANNE JORGENSEN [facility] 07-10-2022 Note ORIGINAL EXAMINATION: ONE XRAY VIEW OF THE PELVIS AND TWO XRAY VIEWS RIGHT HIP07/10/2022 11:06 am COMPARISON: None. HISTORY: ORDERING SYSTEM PROVIDED HISTORY: Reason for Exam: pain FINDINGS: The pelvic ring is intact. No acute fracture or dislocation is identified. Degenerative changes seen of the hips. Multifocal enthesophytes identified in the pelvis. The right hip is intact. No acute fracture or dislocation is identified. IMPRESSION: No acute fracture or dislocation. Degenerative changes Interpreted by: Lino Bradford MD Preliminary Report By: Lino Bradford MD Electronically signed By Lino Bradford MD Dictated Date: 07/10/2022 11:09:22 AM Prelim Date: 07/10/2022 11:10:43 AM Sign Date: 07/10/2022 11:10:43 AM Ordering Provider: CHEYANNE [facility] 03-04-2022 Note ORIGINAL EXAMINATION: MRI OF THE ABDOMEN WITH AND WITHOUT CONTRAST, 03/04/2022 12:44 pm TECHNIQUE: Multiplanar multisequence MRI of the abdomen was performed with and without the administration of intravenous contrast. COMPARISON: None. HISTORY: ORDERING SYSTEM PROVIDED HISTORY: Reason for Exam: right renal mass, renal colic FINDINGS: Kidneys: There is a 10 mm hemorrhagic or proteinaceous cyst at the superior pole of the left kidney. A 9 mm cyst within the inferior pole of the right kidney demonstrates few thin nonenhancing septa. No enhancing mass. No hydronephrosis. Liver: There is evidence on in out of phase imaging of abnormal iron deposition within the liver. There is evidence of diffuse hepatic fatty infiltration with a 3.4 area of focal fatty sparing within the left hepatic lobe. No evidence of cirrhosis. No mass. A tiny focus of enhancement within the right hepatic lobe on early postcontrast imaging is not seen on subsequent postcontrast images, likely representing a transient hepatic intensity difference. Biliary system: The gallbladder is contracted. No gallstones. The common bile duct is normal in caliber. Spleen: No mass. Normal in size. Adrenal glands: Unremarkable. Pancreas: No ductal dilation. Tiny unilocular cysts within the pancreatic body and tail measure up to 5 mm in size. Other: Included bowel is nondistended. IMPRESSION: No suspicious or enhancing renal lesion. Findings suggest abnormal iron and fatty deposition within the liver with a focal area of fatty sparing within the left hepatic lobe. No evidence of cirrhosis or mass. There are multiple unilocular pancreatic cystic lesions within the body and tail that measure up to 5 mm in size. These likely reflect the sequelae or may be benign or low-grade cystic neoplasms. A 2 year pancreatic MRI follow-up may be obtained demonstrate stability. I have personally reviewed the images of this examination and agree with the resident's findings and interpretation. Interpreted by: Cirilo Lynch MD Preliminary Report By: Veronica Kelly Electronically signed By Cirilo Lynch MD Dictated Date: 03/04/2022 1:23:38 PM Prelim Date: 03/04/2022 3:59:59 PM Sign Date: 03/04/2022 3:59:59 PM Ordering Provider: [facility] 03-04-2022 Note ORIGINAL EXAMINATION: MRI OF THE ABDOMEN WITH AND WITHOUT CONTRAST, 03/04/2022 12:44 pm TECHNIQUE: Multiplanar multisequence MRI of the abdomen was performed with and without the administration of intravenous contrast. COMPARISON: None. HISTORY: ORDERING SYSTEM PROVIDED HISTORY: Reason for Exam: right renal mass, renal colic FINDINGS: Kidneys: There is a 10 mm hemorrhagic or proteinaceous cyst at the superior pole of the left kidney. A 9 mm cyst within the inferior pole of the right kidney demonstrates few thin nonenhancing septa. No enhancing mass. No hydronephrosis. Liver: There is evidence on in out of phase imaging of abnormal iron deposition within the liver. There is evidence of diffuse hepatic fatty infiltration with a 3.4 area of focal fatty sparing within the left hepatic lobe. No evidence of cirrhosis. No mass. A tiny focus of enhancement within the right hepatic lobe on early postcontrast imaging is not seen on subsequent postcontrast images, likely representing a transient hepatic intensity difference. Biliary system: The gallbladder is contracted. No gallstones. The common bile duct is normal in caliber. Spleen: No mass. Normal in size. Adrenal glands: Unremarkable. Pancreas: No ductal dilation. Tiny unilocular cysts within the pancreatic body and tail measure up to 5 mm in size. Other: Included bowel is nondistended. IMPRESSION: No suspicious or enhancing renal lesion. Findings suggest abnormal iron and fatty deposition within the liver with a focal area of fatty sparing within the left hepatic lobe. No evidence of cirrhosis or mass. There are multiple unilocular pancreatic cystic lesions within the body and tail that measure up to 5 mm in size. These likely reflect the sequelae or may be benign or low-grade cystic neoplasms. A 2 year pancreatic MRI follow-up may be obtained demonstrate stability. I have personally reviewed the images of this examination and agree with the resident's findings and interpretation. Interpreted by: Cirilo Lynch MD Preliminary Report By: Veronica Kelly Electronically signed By Cirilo Lynch MD Dictated Date: 03/04/2022 1:23:38 PM Prelim Date: 03/04/2022 3:59:59 PM Sign Date: 03/04/2022 3:59:59 PM Ordering Provider: WANDA CORREA [facility] Evaluation + Plan note Future Scheduled [id number] Hemoglobin 08/27/22Complete Blood Count 08/27/22Lipid Profile 08/27/22Microalbumin Level Urine 08/27/22Complete Metabolic Panel 08/27/22 [facility] Hospital course Narrative No data available for this section [facility] Hospital Discharge instructions No data available for this section [facility] Progress note No data available for this section [facility] Summary Purpose Family History No Family History Records Found No data available for this section Advance Directives No Advanced Directives Records Found Additional Source Comments Care Team (unrecognized sect ion and content) Care Team Related Persons Name: October Address: Home [address], [place] [id number] Address: Temporary [address] [phone] Care Team Personnel Name: CHEYANNE JORGENSEN MD Position: ED Physician Member Role: ED Physician Address: Address: [facility] [address] [place] [address] Care Team Related Persons Name: October Address: Home [address], [place] [id number] Address: Temporary [address] [place] [phone] (unrecognized sect ion and content) No Status Records Found INFORMATION SOURCE (unrecogn ized section and content) Patient Care team informatio n (unrecognized section and content) Care Team Personnel Name: WANDA CORREA [employer]iel [employer] Position: P4 Advanced Management Trainee Member Role: Primary Care Physician Address: Address: [address], [place] [address] Care Team Related Persons Name: ULISSES OCTOBER Address: Home [address], [place] [id number] Address: Temporary [address] [place] [phone] FOR RECORDS PERTAINING TO PATIENTS WHO ARE OR HAVE BEEN ENROLLED IN A CHEMICAL DEPENDENCY/SUBSTANCEABUSE PROGRAM, SOME INFORMATION MAY BE OMITTED. This clinical summary was aggregated from multiple sources. Caution should be exercised in using it in the provision of clinical care. This summary normalizes information from multiple sources, and as a consequence, information in this document may materially change the coding, format and clinical context of patient data. In addition, data may be omitted in some cases. CLINICAL DECISIONS SHOULD BE BASED ON THE PRIMARY CLINICAL RECORDS. [facility] [employer] provides no warranty or guarantee of the accuracy or completeness of information in this document.
[2023-06-07 18:00] LABS: Absolute Lymphocyte Count 1.53 X10^3/uL (0.83-4.51); Absolute Neutrophil Count 5.9 X10^3/uL (2.0-7.7); Basophil# 0.09 X10^3/uL; Basophil% 1.1 % (0-1); Eosinophil# 0.17 X10^3/uL; Hematocrit 37.9 % (40-54); Lymphocyte # 1.53 X10^3/ul (0.83-4.51); Lymphocyte % 18.3 % (19-41); Mean Corp Hgb Conc 31.7 g/dL (32-36); Mean Corpuscular Hgb 19.8 pg (27.0-32.0); Mean Corpuscular Volume 62.5 fL (80-94); Mean Platelet Vol. 9.4 fl (6.2-12.0); Monocyte# 0.67 X10^3/uL; NRBC Flagged by Analyzer 0 % (0-5); Neutrophil # 5.89 X10^3/uL (2.7-7.7); Neutrophil % 70.4 % (47-70); Platelet Count 294 K/mm3 (150-450); RBC Distribution Width CV 18.6 % (11.6-14.6); RBC Distribution Width SD 37.9 fl (35.1-43.9); Red Blood Count 6.06 M/mm3 (4.6-6.2); White Blood Count 8.4 K/mm3 (4.4-11.0)
[2023-06-07 18:24] LABS: ALB/GLOB Ratio 1.3 RATIO (0.9-2.4); AST(SGOT) 18 U/L (15-37); Alanine Aminotransfer ALT/SGPT 25 U/L (16-61); Albumin, Serum 3.9 g/dL (3.2-5.0); Alkaline Phosphatase 53 U/L (45-117); Anion Gap 8 (5-15); BUN 24 mg/dL (7-18); BUN/Creat Ratio 15.7 RATIO (10-20); Calcium,Total 9.4 mg/dL (8.5-10.1); Chloride 111 mmol/L (98-107); Creatinine, Serum 1.53 mg/dL (0.70-1.30); EST Glomerular Filtration Rate 46 mL/min (>60); Est Glom Filt Rate - Afr Amer 56 mL/min (>60); Glucose 105 mg/dL (74-106); Protein, Total 6.9 g/dL (6.4-8.2); Sodium Level 140 mmol/L (136-145)
== END | disposition home or self-care (01) ==
PROVIDERS: PCP Registered Nurse; Referring Provider Internal Medicine Rheumatology; Visit Provider Internal Medicine Rheumatology
DX: M06.4 Inflammatory polyarthropathy (principal); Z79.899 Other long term (current) drug therapy; I10 Essential (primary) hypertension
CPT/HCPCS: 36415; 80053; 85025

== ENCOUNTER → 2023-12-26 | Outpatient (CLI) | payer MEDICARE, OTHER, SELFPAY ==
[2023-12-26 11:51] LABS: Absolute Lymphocyte Count 1.73 X10^3/uL (0.83-4.51); Absolute Neutrophil Count 6.4 X10^3/uL (2.0-7.7); Basophil# 0.08 X10^3/uL; Basophil% 0.9 % (0-1); Eosinophil# 0.14 X10^3/uL; Eosinophils% 1.6 % (0-5); Hematocrit 39.8 % (40-54); Hemoglobin 13.2 g/dL (13.0-16.5); Lymphocyte # 1.73 X10^3/ul (0.83-4.51); Lymphocyte % 19.4 % (19-41); Mean Corp Hgb Conc 33.2 g/dL (32-36); Mean Corpuscular Hgb 20.7 pg (27.0-32.0); Mean Corpuscular Volume 62.5 fL (80-94); Monocyte# 0.51 X10^3/uL; Monocyte% 5.7 % (0-10); NRBC Flagged by Analyzer 0 % (0-5); POSITIVE MORPHOLOGY YES; Platelet Count 251 K/mm3 (150-450); RBC Distribution Width CV 20.1 % (11.6-14.6); Red Blood Count 6.37 M/mm3 (4.6-6.2); White Blood Count 8.9 K/mm3 (4.4-11.0)
[2023-12-26 11:54] LABS: Differential Indicated SCAN CRITERIA MET
[2023-12-26 12:40] LABS: ALB/GLOB Ratio 1.3 RATIO (0.9-2.4); AST(SGOT) 31 U/L (15-37); Alanine Aminotransfer ALT/SGPT 34 U/L (16-61); Alkaline Phosphatase 59 U/L (45-117); Anion Gap 7 (5-15); BUN 15 mg/dL (7-18); BUN/Creat Ratio 10.4 RATIO (10-20); Calcium,Total 9.4 mg/dL (8.5-10.1); Chloride 107 mmol/L (98-107); Creatinine, Serum 1.44 mg/dL (0.70-1.30); EST Glomerular Filtration Rate 50 mL/min (>60); Est Glom Filt Rate - Afr Amer 60 mL/min (>60); Glucose 166 mg/dL (74-106); Potassium 3.7 mmol/L (3.5-5.1); Sodium Level 139 mmol/L (136-145)
[2023-12-26 12:43] LABS: Anisocytosis 2+; Target Cells 1+; Tear Drop Cell 1+
[2023-12-26 12:45] LABS: Red Cell Morphology N CHROM NORMAL (NORM C&C)
== END | disposition home or self-care (01) ==
PROVIDERS: PCP Registered Nurse; Referring Provider Internal Medicine Rheumatology; Visit Provider Internal Medicine Rheumatology
DX: M06.4 Inflammatory polyarthropathy (principal); Z79.899 Other long term (current) drug therapy
CPT/HCPCS: 36415; 80053; 85025

== ENCOUNTER → 2024-03-20 | Outpatient (CLI) | payer MEDICARE, OTHER, SELFPAY ==
[2024-03-20 12:06] LABS: Absolute Lymphocyte Count 1.92 X10^3/uL (0.83-4.51); Absolute Neutrophil Count 6.1 X10^3/uL (2.0-7.7); Basophil# 0.09 X10^3/uL; Eosinophil# 0.18 X10^3/uL; Hematocrit 40.2 % (40-54); Hemoglobin 12.4 g/dL (13.0-16.5); Lymphocyte # 1.92 X10^3/ul (0.83-4.51); Lymphocyte % 21.5 % (19-41); Mean Corp Hgb Conc 30.8 g/dL (32-36); Mean Corpuscular Hgb 19.8 pg (27.0-32.0); Mean Corpuscular Volume 64.2 fL (80-94); Mean Platelet Vol. 9.4 fl (6.2-12.0); Monocyte# 0.61 X10^3/uL; Monocyte% 6.8 % (0-10); NRBC Flagged by Analyzer 0 % (0-5); Neutrophil % 68.3 % (47-70); Platelet Count 246 K/mm3 (150-450); RBC Distribution Width CV 19.7 % (11.6-14.6); RBC Distribution Width SD 41.1 fl (35.1-43.9); Red Blood Count 6.26 M/mm3 (4.6-6.2); White Blood Count 8.9 K/mm3 (4.4-11.0)
[2024-03-20 12:33] LABS: ALB/GLOB Ratio 1.3 RATIO (0.9-2.4); AST(SGOT) 24 U/L (15-37); Alanine Aminotransfer ALT/SGPT 35 U/L (16-61); Alkaline Phosphatase 64 U/L (45-117); Anion Gap 5 (5-15); BUN 16 mg/dL (7-18); BUN/Creat Ratio 11.9 RATIO (10-20); Calcium,Total 9.5 mg/dL (8.5-10.1); Chloride 108 mmol/L (98-107); Creatinine, Serum 1.35 mg/dL (0.70-1.30); EST Glomerular Filtration Rate 53 mL/min (>60); Est Glom Filt Rate - Afr Amer 65 mL/min (>60); Globulin 3.1 g/dL (2.2-4.2); Glucose 148 mg/dL (74-106); Potassium 3.9 mmol/L (3.5-5.1); Protein, Total 7.1 g/dL (6.4-8.2); Sodium Level 140 mmol/L (136-145)
== END | disposition home or self-care (01) ==
LOC: MTLAB 10:03
PROVIDERS: PCP Registered Nurse; Referring Provider Internal Medicine Rheumatology; Visit Provider Internal Medicine Rheumatology
DX: M06.4 Inflammatory polyarthropathy (principal); Z79.899 Other long term (current) drug therapy
CPT/HCPCS: 36415; 80053; 85025

== ENCOUNTER → 2024-04-13 | Outpatient (CLI) | payer MEDICARE, OTHER, SELFPAY ==
[2024-04-13 12:09] LABS: Absolute Lymphocyte Count 1.57 X10^3/uL (0.83-4.51); Absolute Neutrophil Count 7.8 X10^3/uL (2.0-7.7); Basophil# 0.04 X10^3/uL; Basophil% 0.4 % (0-1); Hematocrit 38.3 % (40-54); Hemoglobin 12.3 g/dL (13.0-16.5); Lymphocyte # 1.57 X10^3/ul (0.83-4.51); Lymphocyte % 15.4 % (19-41); Mean Corp Hgb Conc 32.1 g/dL (32-36); Mean Corpuscular Hgb 20.6 pg (27.0-32.0); Mean Corpuscular Volume 64.2 fL (80-94); Mean Platelet Vol. 9.8 fl (6.2-12.0); Monocyte# 0.61 X10^3/uL; NRBC Flagged by Analyzer 0 % (0-5); Neutrophil # 7.81 X10^3/uL (2.7-7.7); Neutrophil % 76.7 % (47-70); Platelet Count 193 K/mm3 (150-450); RBC Distribution Width SD 40.3 fl (35.1-43.9); Red Blood Count 5.97 M/mm3 (4.6-6.2); White Blood Count 10.2 K/mm3 (4.4-11.0)
[2024-04-13 12:22] LABS: ALB/GLOB Ratio 1.6 RATIO (0.9-2.4); AST(SGOT) 18 U/L (15-37); Alanine Aminotransfer ALT/SGPT 35 U/L (16-61); Albumin, Serum 3.9 g/dL (3.2-5.0); Alkaline Phosphatase 60 U/L (45-117); Anion Gap 6 (5-15); BUN 17 mg/dL (7-18); BUN/Creat Ratio 13.8 RATIO (10-20); Calcium,Total 9.1 mg/dL (8.5-10.1); Chloride 108 mmol/L (98-107); Creatinine, Serum 1.23 mg/dL (0.70-1.30); EST Glomerular Filtration Rate 59 mL/min (>60); Est Glom Filt Rate - Afr Amer 72 mL/min (>60); Globulin 2.5 g/dL (2.2-4.2); Glucose 139 mg/dL (74-106); Potassium 3.8 mmol/L (3.5-5.1); Protein, Total 6.4 g/dL (6.4-8.2); Sodium Level 140 mmol/L (136-145)
== END | disposition home or self-care (01) ==
LOC: MTLAB 10:28
PROVIDERS: PCP Registered Nurse; Referring Provider Internal Medicine Rheumatology; Visit Provider Internal Medicine Rheumatology
DX: M06.4 Inflammatory polyarthropathy (principal); Z79.899 Other long term (current) drug therapy
CPT/HCPCS: 36415; 80053; 85025

== ENCOUNTER → 2024-06-06 | Outpatient (CLI) | payer MEDICARE, OTHER, SELFPAY ==
[2024-06-06 17:42] LABS: Absolute Lymphocyte Count 1.99 X10^3/uL (0.83-4.51); Absolute Neutrophil Count 7.7 X10^3/uL (2.0-7.7); Basophil# 0.07 X10^3/uL; Basophil% 0.7 % (0-1); Eosinophils% 1.9 % (0-5); Hematocrit 35.2 % (40-54); Hemoglobin 11.1 g/dL (13.0-16.5); Lymphocyte # 1.99 X10^3/ul (0.83-4.51); Lymphocyte % 18.9 % (19-41); Mean Corp Hgb Conc 31.5 g/dL (32-36); Mean Corpuscular Hgb 20.7 pg (27.0-32.0); Mean Corpuscular Volume 65.5 fL (80-94); Mean Platelet Vol. 9.8 fl (6.2-12.0); Monocyte# 0.56 X10^3/uL; Monocyte% 5.3 % (0-10); NRBC Flagged by Analyzer 0 % (0-5); Neutrophil # 7.66 X10^3/uL (2.7-7.7); Neutrophil % 72.6 % (47-70); POSITIVE MORPHOLOGY YES; Platelet Count 277 K/mm3 (150-450); RBC Distribution Width CV 21.7 % (11.6-14.6); RBC Distribution Width SD 47.1 fl (35.1-43.9); Red Blood Count 5.37 M/mm3 (4.6-6.2); White Blood Count 10.5 K/mm3 (4.4-11.0)
[2024-06-06 17:53] LABS: Differential Indicated SCAN CRITERIA MET
[2024-06-06 18:01] LABS: ALB/GLOB Ratio 1.3 RATIO (0.9-2.4); AST(SGOT) 21 U/L (15-37); Alanine Aminotransfer ALT/SGPT 32 U/L (16-61); Albumin, Serum 3.8 g/dL (3.2-5.0); Alkaline Phosphatase 70 U/L (45-117); Anion Gap 7 (5-15); BUN 13 mg/dL (7-18); BUN/Creat Ratio 10.2 RATIO (10-20); Calcium,Total 9.2 mg/dL (8.5-10.1); Chloride 107 mmol/L (98-107); Creatinine, Serum 1.28 mg/dL (0.70-1.30); EST Glomerular Filtration Rate 57 mL/min (>60); Est Glom Filt Rate - Afr Amer 69 mL/min (>60); Glucose 145 mg/dL (74-106); Protein, Total 6.8 g/dL (6.4-8.2); Sodium Level 141 mmol/L (136-145)
[2024-06-06 18:48] LABS: Anisocytosis 2+; Crenated RBC RARE; Differential Comment SCANNED; Hypochromasia 1+; Target Cells 1+
== END | disposition home or self-care (01) ==
LOC: MTLAB 15:13
PROVIDERS: PCP Registered Nurse; Referring Provider Internal Medicine Rheumatology; Visit Provider Internal Medicine Rheumatology
DX: M06.4 Inflammatory polyarthropathy (principal); Z79.899 Other long term (current) drug therapy
CPT/HCPCS: 36415; 80053; 85025

== ENCOUNTER → 2024-08-29 | Outpatient (CLI) | payer MEDICARE, OTHER, SELFPAY ==
[2024-08-29 12:52] LABS: Absolute Lymphocyte Count 1.64 X10^3/uL (0.83-4.51); Absolute Neutrophil Count 7.3 X10^3/uL (2.0-7.7); Basophil# 0.05 X10^3/uL; Basophil% 0.5 % (0-1); Eosinophil# 0.17 X10^3/uL; Eosinophils% 1.7 % (0-5); Hematocrit 34.6 % (40-54); Hemoglobin 11.6 g/dL (13.0-16.5); Lymphocyte # 1.64 X10^3/ul (0.83-4.51); Lymphocyte % 16.9 % (19-41); Mean Corp Hgb Conc 33.5 g/dL (32-36); Mean Corpuscular Hgb 21.7 pg (27.0-32.0); Mean Corpuscular Volume 64.7 fL (80-94); Monocyte# 0.55 X10^3/uL; Monocyte% 5.7 % (0-10); NRBC Flagged by Analyzer 0 % (0-5); Neutrophil # 7.27 X10^3/uL (2.7-7.7); Neutrophil % 74.8 % (47-70); Platelet Count 243 K/mm3 (150-450); RBC Distribution Width CV 18.3 % (11.6-14.6); RBC Distribution Width SD 39.8 fl (35.1-43.9); Red Blood Count 5.35 M/mm3 (4.6-6.2); White Blood Count 9.7 K/mm3 (4.4-11.0)
[2024-08-29 13:26] LABS: ALB/GLOB Ratio 2.1 RATIO (0.9-2.4); AST(SGOT) 35 U/L (<=37); Alanine Aminotransfer ALT/SGPT 38 U/L (<=46); Albumin, Serum 4.3 g/dL (3.4-4.8); Alkaline Phosphatase 57 U/L (40-129); Anion Gap 12 (5-15); BUN 14 mg/dL (4-19); BUN/Creat Ratio 12.3 RATIO (10-20); Calcium,Total 9.4 mg/dL (7.6-11.0); Carbon Dioxide 23.1 mmol/L (21.0-32.0); Chloride 105 mmol/L (98-108); Creatinine, Serum 1.15 mg/dL (0.70-1.20); EST Glomerular Filtration Rate 62 (>60); Globulin 2.1 g/dL (2.2-4.2); Glucose 151 mg/dL (70-99); Potassium 3.7 mmol/L (3.3-5.1); Protein, Total 6.4 g/dL (5.9-8.4); Sodium Level 140 mmol/L (133-145); Total Bilirubin 0.84 mg/dL (0.00-1.30)
== END | disposition home or self-care (01) ==
LOC: MTLAB 10:27
PROVIDERS: PCP Registered Nurse; Referring Provider Internal Medicine Rheumatology; Visit Provider Internal Medicine Rheumatology
DX: M06.4 Inflammatory polyarthropathy (principal); Z79.899 Other long term (current) drug therapy
CPT/HCPCS: 36415; 80053; 85025

== ENCOUNTER → 2024-11-19 | Outpatient (CLI) | payer MEDICARE, OTHER, SELFPAY ==
[2024-11-19 12:26] LABS: Hematocrit 35.1 % (40-54); Hemoglobin 11.1 g/dL (13.0-16.5); Immature Granulocytes Count 0.040 X10^3/uL (0.0-0.0); Mean Corp Hgb Conc 31.6 g/dL (32-36); Mean Corpuscular Volume 64.9 fL (80-94); Mean Platelet Vol. 10.0 fl (6.2-12.0); NRBC Flagged by Analyzer 0 % (0-5); Platelet Count 275 K/mm3 (150-450); RBC Distribution Width CV 19.9 % (11.6-14.6); RBC Distribution Width SD 42.8 fl (35.1-43.9); Red Blood Count 5.41 M/mm3 (4.6-6.2); White Blood Count 8.0 K/mm3 (4.4-11.0)
[2024-11-19 13:03] LABS: AST(SGOT) 24 U/L (<=37); Alanine Aminotransfer ALT/SGPT 23 U/L (<=46); Albumin, Serum 4.2 g/dL (3.4-4.8); Alkaline Phosphatase 58 U/L (40-129); Anion Gap 12 (5-15); BUN 14 mg/dL (4-19); BUN/Creat Ratio 11.3 RATIO (10-20); Calcium,Total 9.3 mg/dL (7.6-11.0); Carbon Dioxide 22.8 mmol/L (21.0-32.0); Chloride 107 mmol/L (98-108); Globulin 2.3 g/dL (2.2-4.2); Glucose 134 mg/dL (70-99); Potassium 4.0 mmol/L (3.3-5.1)
== END | disposition home or self-care (01) ==
LOC: MTLAB 10:40
PROVIDERS: PCP Registered Nurse; Referring Provider Internal Medicine Rheumatology; Visit Provider Internal Medicine Rheumatology
DX: M06.4 Inflammatory polyarthropathy (principal); Z79.899 Other long term (current) drug therapy
CPT/HCPCS: 36415; 80053; 85025

== ENCOUNTER → 2025-02-13 | Outpatient (CLI) | payer MEDICARE, OTHER, SELFPAY ==
[2025-02-13 12:47] LABS: Hematocrit 38.5 % (40-54); Hemoglobin 12.5 g/dL (13.0-16.5); Immature Granulocytes Count 0.020 X10^3/uL (0.0-0.0); Mean Corp Hgb Conc 32.5 g/dL (32-36); Mean Corpuscular Volume 62.5 fL (80-94); NRBC Flagged by Analyzer 0 % (0-5); Platelet Count 239 K/mm3 (150-450); RBC Distribution Width CV 18.2 % (11.6-14.6); RBC Distribution Width SD 36.3 fl (35.1-43.9); Red Blood Count 6.16 M/mm3 (4.6-6.2); White Blood Count 8.3 K/mm3 (4.4-11.0)
[2025-02-13 13:01] LABS: AST(SGOT) 26 U/L (<=37); Alanine Aminotransfer ALT/SGPT 26 U/L (<=46); Albumin, Serum 4.5 g/dL (3.4-4.8); Alkaline Phosphatase 57 U/L (40-129); Anion Gap 13 (5-15); BUN 13 mg/dL (4-19); BUN/Creat Ratio 11.0 RATIO (10-20); Calcium,Total 9.3 mg/dL (7.6-11.0); Carbon Dioxide 22.2 mmol/L (21.0-32.0); Chloride 104 mmol/L (98-108); Globulin 2.0 g/dL (2.2-4.2); Glucose 129 mg/dL (70-99); Potassium 4.1 mmol/L (3.3-5.1)
== END | disposition home or self-care (01) ==
LOC: MTLAB 10:41
PROVIDERS: PCP Registered Nurse; Referring Provider Internal Medicine Rheumatology; Visit Provider Internal Medicine Rheumatology
DX: M06.4 Inflammatory polyarthropathy (principal); Z79.899 Other long term (current) drug therapy
CPT/HCPCS: 36415; 80053; 85025

== ENCOUNTER → 2025-05-08 | Outpatient (CLI) | payer MEDICARE, OTHER, SELFPAY ==
--- OUTSIDE RECORDS SUMMARY | 2025-05-08 11:00 | XMS RPT_ITS | CCD ---
Author Organization [facility] Care Team Providers Care Radiation Safety Officer Name Role Phone SUNNY GUARD CAPTAIN-FACILITIES FLIGHT CHECK PILOT, LENA A Primary Care Physi rodrick KOREY FRYE, DR BYERS Attending Unavailab le SUNNY GUARD CAPTAIN-FACILITIES FLIGHT CHECK PILOT, LENA A Primary Care Un available SUNNY GUARD CAPTAIN-FACILITIES FLIGHT CHECK PILOT, LENA A Primary Care Un available CARMENICH DOMONICA Attending Unavailable ROCK GUARD CAPTAIN-FACILITIES FLIGHT CHECK PILOT, MIGUELINA Attending Unavailabl e SUNNY GUARD CAPTAIN-FACILITIES FLIGHT CHECK PILOT, LENA A Primary Care Un available SUNNY GUARD CAPTAIN-FACILITIES FLIGHT CHECK PILOT, LENA A Attending Un available SUNNY GUARD CAPTAIN-FACILITIES FLIGHT CHECK PILOT, LENA A Primary Care Un available SUNNY GUARD CAPTAIN-FACILITIES FLIGHT CHECK PILOT, LENA A Primary Care Un available SUNNY GUARD CAPTAIN-FACILITIES FLIGHT CHECK PILOT, LENA A Attending Un available Sunny SLUG PRESS OPERATOR-C, Lena Primary Care Provider Domenic FRYE, Dr. Bales Attending Provider Domenic FRYE, Dr. Bales Referring Provider Sunny SLUG PRESS OPERATOR, [facility] Unavailabl e Vellanki, Amairani Referring Unavailable Vellanki, Amairani Attending Unavailable Vellanki, Amairani Attending Unavailable Sunny SLUG PRESS OPERATOR, [facility] Unavailabl e Vellanki, Amairani Referring Unavailable Vellanki, Amairani Attending Unavailable Sunny SLUG PRESS OPERATOR, [facility] Care Unavailabl e Vellanki, Amairani Referring Unavailable Vellanki, Amairani Attending Unavailable Sunny SLUG PRESS OPERATOR, [facility] Unavailabl e Vellanki, Amairani Referring Unavailable Sunny SLUG PRESS OPERATOR, [facility] Care Unavailabl e [place] Amairani Attending Unavailable Vellanki, Amairani Referring Unavailable Sunny SLUG PRESS OPERATOR, [facility] Unavailabl e Vellanki, Amairani Referring Unavailable Amairani Sheth Attending Unavailable Medications Current Medications Medication Drug Class(es) Dates Sig (Normalized) Sig (Original) acetaminophen 325 mg / HYDROcodone bitartrate 5 mg oral tablet (1 source) Opioid Agonist Start: 07-10-2022 End: 07-13-2022 take 1 tablet by mouth every six hours as needed for pain [place] 325- 5 mg oral tablet Dose = 1 tab(s), Oral, q6h, PRN for pain, X 3 day(s), # 12 tab(s), 0 Refill(s), Pharmacy: [facility] #[id number], Right hip pain, 172, cm, 02/17/22 7:27:00 EDT, Height, 89.1, kg, 02/17/22 7:27:00 EDT, Dosing Weight Start Date: 07/10/22 Stop Date: 07/13/22 Status: Ordered amLODIPine 5 mg oral tablet (7 sources) Dihydropyridine Calcium Channel Camelia Start: 03-04-2023 End: 01-12-2025 amLODIPine 5 mg oral tablet Dose : 5 mg = 1 tab(s), Oral, qDay, # 100 tab(s), 3 Refill(s), Pharmacy: [facility]/pharmacy #[id number], 172, cm, 01/04/24 13:27:00 EDT, Height, kg, 01/04/24 13:27:00 EDT, Dosing Weight Start Date: 01/18/24 Stop Date: 01/12/25 Status: Ordered Start: 02-17-2022 End: 02-12-2023 amLODIPine 5 mg oral tablet Dose : 5 mg = 1 tab(s), Oral, qDay, # 90 tab(s), 3 Refill(s), Pharmacy: [facility]/pharmacy #[id number], 172, cm, 02/17/22 7:27:00 EDT, Height Start Date: 02/17/22 Stop Date: 02/12/23 Status: Ordered amoxicillin 875 mg / clavulanate 125 mg oral tablet (1 source) Penicillin-class Antibacterial Start: 05-26-2023 End: 06-05-2023 take 1 tablet by mouth every twelve hours amoxicillin-clavulanate 875 mg-125 mg oral tablet 1 tab(s), Oral, q12h, X 10 day(s), # 20 tab(s), 0 Refill(s), 06/05/23 11:16:00 AM EST, Pharmacy: [facility]/pharmacy #[id number], Fatigue, 172, cm, 05/26/23 10:34:00 EST, Height, 94, kg, 05/26/23 10:34:00 EST, Dosing Weight Start Date: 05/26/23 Stop Date: 06/05/23 Status: Ordered aspirin 81 mg delayed release oral tablet (2 sources) Platelet Aggregation Inhibitor, Nonsteroidal Anti-inflammatory Drug Start: 01-04-2024 aspirin 81 mg oral delayed release tablet Dose : 81 mg = 1 tab(s), Oral, takes every other day, 0 Refill(s) Start Date: 01/04/24 Status: Ordered atenolol 50 mg oral tablet (7 sources) beta-Adrenergic Camelia Start: 03-04-2023 End: 01-12-2025 atenolol 50 mg oral tablet Dose : 50 mg = 1 tab(s), Oral, qDay, # 100 tab(s), 3 Refill(s), Pharmacy: [facility]/pharmacy #[id number], 172, cm, 01/04/24 13:27:00 EDT, Height, kg, 01/04/24 13:27:00 EDT, Dosing Weight Start Date: 01/18/24 Stop Date: 01/12/25 Status: Ordered Start: 02-17-2022 End: 02-12-2023 atenolol 50 mg oral tablet D ose : 50 mg = 1 tab(s), Oral, qDay, # 90 tab(s), 3 Refill(s), Pharmacy: [facility]/pharmacy #[id number], 172, cm, 02/17/22 7:27:00 EDT, Height Start Date: 02/17/22 Stop Date: 02/12/23 Status: Ordered hydroxychloroquine sulfate 200 mg oral tablet (2 sources) Antimalarial, Antirheumatic Agent Start: 01-04-2024 take 1 tablet by mouth twice daily hydroxychloroquine 200 mg oral tablet TAKE 1 TABLET BY MOUTH TWICE A DAY Start Date: 01/04/24 Status: Ordered lidocaine 0.05 mg/mg medicated patch (1 source) Antiarrhythmic, Amide Local Anesthetic Start: 12-09-2023 End: 12-19-2023 lidocaine 5% topical patch Apply 1 patch(es), Topical, qDay, remove patches after 12 hours, X 10 day(s), # 10 patch(es), 0 Refill(s), 94 Start Date: 12/09/23 Stop Date: 12/19/23 Status: Ordered Multivitamin preparation (7 sources) Start: 02-17-2022 take 1 tablet by mouth once daily Multivitamin Dose = 1 tab(s), Oral, Daily, 0 Refill(s) Start Date: 02/17/22 Status: Ordered pantoprazole 40 mg delayed release oral tablet (7 sources) Proton Pump Inhibitor Start: 03-04-2023 End: 06-12-2024 pantoprazole 40 mg oral enteric coated tablet Dose : 40 mg = 1 tab(s), Oral, qDayAC, # 90 tab(s), 0 Refill(s), [id number], 172, cm, 05/26/23 10:34:00 EST, Height, kg, 05/26/23 10:34:00 EST, Dosing Weight Start Date: 12/21/23 Stop Date: 03/20/24 Status: Ordered Start: 02-17-2022 End: 02-12-2023 pantoprazole 40 mg oral ente preeti coated tablet Dose : 40 mg = 1 tab(s), Oral, qDayAC, # 90 tab(s), 3 Refill(s), [id number], 172, cm, 02/17/22 7:27:00 EDT, Height Start Date: 02/17/22 Stop Date: 02/12/23 Status: Ordered predniSONE 20 mg oral tablet (1 source) Start: 07-10-2022 End: 07-16-2022 predniSONE 20 mg oral tablet Dose : 40 mg = 2 tab(s), Oral, qDayM, X 6 day(s), # 12 tab(s), 0 Refill(s), 07/16/22 11:17:00 EST, [id number], Right hip pain, 172, cm, 02/17/22 7:27:00 EDT, Height Start Date: 07/10/22 Stop Date: 07/16/22 Status: Ordered Probiotic (2 sources) Start: 01-04-2024 Probiotic 0 Refill(s) Start Date: 01/04/24 Status: Ordered simvastatin 20 mg oral tablet (4 sources) HMG-CoA Reductase Inhibitor Start: 01-04-2024 take 1 tablet by mouth once daily simvastatin 20 mg oral tablet TAKE 1 TABLET BY MOUTH EVERY DAY Start Date: 01/04/24 Status: Ordered Start: 02-17-2022 End: 02-12-2023 simvastatin 20 mg oral table t Dose : 20 mg = 1 tab(s), Oral, qDay, # 90 tab(s), 3 Refill(s), Pharmacy: [facility]/pharmacy #[id number], 172, carrie, 02/17/22 7:27:00 EDT, Height Start Date: 02/17/22 Stop Date: 02/12/23 Status: Ordered Super B Complex oral tablet (7 sources) Start: 02-17-2022 take 1 tablet by mouth once daily Super B Complex oral tablet Dose = 1 tab(s), Oral, Daily, # 30 tab(s), 0 Refill(s) Start Date: 02/17/22 Status: Ordered tamsulosin hydrochloride 0.4 mg oral capsule (7 sources) alpha-Adrenergi c Camelia Start: 03-04-2023 End: 01-12-2025 tamsulosin 0.4 mg oral capsule Dose : 0.4 mg = 1 cap(s), Oral, qDay, # 100 cap(s), 3 Refill(s), Pharmacy: [facility]/pharmacy #[id number], 172, carrie, 01/04/24 13:27:00 EDT, Height, kg, 01/04/24 13:27:00 EDT, Dosing Weight Start Date: 01/18/24 Stop Date: 01/12/25 Status: Ordered Start: 02-17-2022 End: 02-12-2023 tamsulosin 0.4 mg oral capsu le Dose : 0.4 mg = 1 cap(s), Oral, qDay, # 90 cap(s), 3 Refill(s), Pharmacy: [facility]/pharmacy #[id number], 172, carrie, 02/17/22 7:27:00 EDT, Height Start Date: 02/17/22 Stop Date: 02/12/23 Status: Ordered Vitamin B12 2500 mcg subling ual tablet (7 sources) Start: 09-21-2023 End: 03-19-2024 Vitamin B12 2500 mcg subling ual tablet Dose : 2,500 mcg = 1 tab(s), Sublingual, Daily, # 100 tab(s), 1 Refill(s), Pharmacy: [facility]/pharmacy #[id number], Fatigue, 172, cm, 05/26/23 10:34:00 EST, Height, kg, 05/26/23 10:34:00 EST, Dosing Weight Start Date: 09/21/23 Stop Date: 03/19/24 Status: Ordered Start: 03-04-2023 End: 02-27-2024 Vitamin B12 2500 mcg subling ual tablet Dose : 2,500 mcg = 1 tab(s), Sublingual, Daily, # 90 tab(s), 3 Refill(s), Pharmacy: [facility]/pharmacy #[id number], Fatigue, 172, cm, 03/04/23 13:41:00 EDT, Height, kg, 03/04/23 13:34:00 EDT, Dosing Weight Start Date: 03/04/23 Stop Date: 02/27/24 Status: Ordered Start: 03-12-2022 End: 03-07-2023 Vitamin B12 2500 mcg subling ual tablet Dose : 2,500 mcg = 1 tab(s), Sublingual, Daily, # 90 tab(s), 3 Refill(s), Pharmacy: [facility]/pharmacy #[id number], Fatigue, 172, cm, 02/17/22 7:27:00 EDT, Height, kg, 02/17/22 7:27:00 EDT, Dosing Weight Start Date: 03/12/22 Stop Date: 03/07/23 Status: Ordered Start: 02-17-2022 Vitamin B12 25 00 mcg sublingual tablet Dose : 2,500 mcg = 1 tab(s), Sublingual, Daily, # 30 tab(s), 0 Refill(s), Pharmacy: [facility]/pharmacy #[id number], 172, cm, 02/17/22 7:27:00 EDT, Height Start Date: 02/17/22 Status: Ordered Vitamin D3 125 mcg (5000 int l units) oral capsule (7 sources) Start: 09-21-2023 End: 03-19-2024 Vitamin D3 125 mcg (5000 int l units) oral capsule Dose : 125 mcg = 1 cap(s), Oral, qDay, # 100 cap(s), 1 Refill(s), Pharmacy: [facility]/pharmacy #[id number], 172, cm, 05/26/23 10:34:00 EST, Height, kg, 05/26/23 10:34:00 EST, Dosing Weight Start Date: 09/21/23 Stop Date: 03/19/24 Status: Ordered Start: 03-04-2023 End: 02-27-2024 Vitamin D3 125 mcg (5000 int l units) oral capsule Dose : 125 mcg = 1 cap(s), Oral, qDay, # 90 cap(s), 3 Refill(s), Pharmacy: [facility]/pharmacy #[id number], 172, cm, 03/04/23 13:41:00 EDT, Height, kg, 03/04/23 13:34:00 EDT, Dosing Weight Start Date: 03/04/23 Stop Date: 02/27/24 Status: Ordered Start: 02-17-2022 End: 02-12-2023 Vitamin D3 125 mcg (5000 int l units) oral capsule Dose : 125 mcg = 1 cap(s), Oral, qDay, # 90 cap(s), 3 Refill(s), Pharmacy: [facility]/pharmacy #[id number], 172, cm, 02/17/22 7:27:00 EDT, Height Start Date: 02/17/22 Stop Date: 02/12/23 Status: Ordered Completed/Discontinued Medications Medication Drug Class(es) Dates Sig (Normalized) Sig (Original) Misc Medication (5 sources) Start: 03-04-2023 Misc Medication See Instructions, 1 Tablespoons daily of Apple Cider Vinegar, 0 Refill(s), 89.1 Start Date: 03/04/23 Status: Ordered Problems Active Problems Problem Classification Problem Date Documented Date Episodic/Chronic Calculus of urinary tract (7 sources) Recurrent kidney stone 02-17-2022 Episodic Chronic kidney disease (5 sources) Chronic kidney disease stage 3 03-04-2023 Chronic Diabetes mellitus without complication (5 sources) Hyperglycemia 03-04-2023 Episodic Essential hypertension (7 sources) Hypertensive disorder 02-17-2022 Chronic Genitourinary symptoms and ill-defined conditions (7 sources) Nocturia 02-17-2022 Episodic Hemorrhoids (7 sources) Hemorrhoids 02-17-2022 Episodic Other hematologic conditions (7 sources) History of anemia 02-17-2022 Episodic Other injuries and conditions due to external causes (1 source) History of fall; Translations: [History of falling] Episodic Other male genital disorders (7 sources) 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 Other non-traumatic joint disorders (1 source) Pain in right hip joint; Translations: [Pain in right hip] Onset: 07-10-2022 Episodic Rheumatoid arthritis and related disease (1 source) Inflammatory polyarthropathy; Translations: [Inflammatory polyarthropathy] Onset: 03-13-2025 Chronic Spondylosis; intervertebral disc disorders; other back problems (1 source) Lumbosacral spondylosis; Translations: [Spondylosis without myelopathy or radiculopathy, lumbosacral region] Chronic Spondylosis; intervertebral disc disorders; other back problems (2 sources) Backache 01-04-2024 Episodic Sprains and strains (1 source) Lower back injury; Translations: [Strain of muscle, fascia and tendon of lower back, initial encounter] Onset: 12-09-2023 Episodic Superficial injury; contusion (1 source) Superficial injury of trunk; Translations: [Contusion of lower back and pelvis, initial encounter] Onset: 07-31-2023 Episodic Unclassified (7 sources) Patient encounter status 03-04-2023 Past or Other Problems Problem Classification Problem Date Documented Da te Episodic/Chronic Malaise and fatigue (2 sources) Other fatigue; Translations: [Other fatigue] Onset: 05-26-2023 Episodic Results Test Name Value Interpretation Reference Range Facility CBC W/Diff, Automatedon 10-0 MPV TNP Normal 6.2-12.0 [facility] Comment on above: Performed By: #### L [id number], L100.0100 #### [facility] [address] [place], [address] Absolute Lymph 1.82 X10 3/uL Normal 0.83-4.51 [facility] Comment on above: Performed By: #### L [id number], L100.0100 #### [facility] [address] [place], [address] Absolute Neut 5.6 X10 3/uL Normal 2.0-7.7 [facility] Comment on above: Performed By: #### L [id number], L100.0100 #### [facility] [address] [place], [address] Basophils/100 WBC (Bld) 1.1 % High 0-1 [facility] Comment on above: Performed By: #### L [id number], L100.0100 #### [facility] [address] [place], [address] Eosinophils/100 WBC (Bld) 1.9 % Normal 0-5 [facility] Comment on above: Performed By: #### L [id number], L100.0100 #### [facility] [address] [place], [address] Erythrocyte distribution width (RBC) [Ratio] 18.2 % High 11.6-14.6 [facility] Comment on above: Performed By: #### L [id number], [id number] #### [facility] [address] [place], [address] Hematocrit (Bld) [Volume fraction] 38.5 % Low 40-54 [facility] Comment on above: Performed By: #### L [id number], L100.0100 #### [facility] [address] [place], [address] Hemoglobin (Bld) [Mass/Vol] 12.5 g/dL Low 13.0-16.5 [facility] Comment on above: Performed By: #### L [id number], L100.0100 #### [facility] [address] [place], [address] IG% 0.200 Normal 0.0-0.9 [facility] Comment on above: Result Comment: IG% - Immature Granulocytes (promyelocytes, myelocytes and metamyelocytes) > 1% indicates that a LEFT SHIFT is Present. Performed By: #### L [id number], L100.0100 #### [facility] [address] [place], [address] Lymphocytes/100 WBC (Bld) 21.9 % Normal 19-41 [facility] Comment on above: Performed By: #### [id number], [id number] #### [facility] [address] [place], [address] MCH (RBC) [Entitic mass] 20.3 pg Low 27.0-32.0 [facility] Comment on above: Performed By: #### [id number], [id number] #### [facility] [address] [place], [address] MCHC (RBC) [Mass/Vol] 32.5 g/dL Normal 32-36 [facility] Comment on above: Performed By: #### [id number], [id number] #### [facility] [address] [place], [address] MCV (RBC) [Entitic vol] 62.5 fL Low 80-94 [facility] Comment on above: Performed By: #### L [id number], L100.0100 #### [facility] [address] [place], [address] Monocytes/100 WBC (Bld) 8.0 % Normal 0-10 [facility] Comment on above: Performed By: #### L [id number], [id number] #### [facility] [address] [place], [address] Neutrophils/100 WBC (Bld) 66.9 % Normal 47-70 [facility] Comment on above: Performed By: #### L [id number], [id number] #### [facility] [address] [place], [address] Nucleated RBC (Bld) [#/Vol] 0 10*3/uL Normal 0-5 [facility] Comment on above: Performed By: #### L [id number], L100.0100 #### [facility] [address] [place], [address] Platelets (Bld) [#/Vol] 239 10*3/uL Normal 150-450 [facility] Comment on above: Performed By: #### L [id number], L100.0100 #### [facility] [address] [place], [address] RBC (Bld) [#/Vol] 6.16 10*6/uL Normal 4.6-6.2 [facility] Comment on above: Performed By: #### L [id number], [id number] #### [facility] [address] [place], [address] RDW SD 36.3 fl Normal 35.1-43.9 [facility] Comment on above: Performed By: #### L [id number], [id number] #### [facility] [address] [place], [address] WBC (Bld) [#/Vol] 8.3 10*3/uL Normal 4.4-11.0 [facility] Comment on above: Performed By: #### L [id number], [id number] #### [facility] [address] [place], [address] Comprehensive Metabolic Prof ilon 02-13-2025 Albumin [Mass/Vol] 4.5 g/dL Normal 3.4-4.8 [facility] Comment on above: Performed By: #### L [id number], [id number] #### [facility] [address] [place], [address] Albumin/Globulin [Mass ratio] 2.2 {ratio} Normal 0.9-2.4 [facility] Comment on above: Performed By: #### L [id number], [id number] #### [facility] [address] [place], [address] ALK PHOS 57 U/L Normal 40-129 [facility] Comment on above: Performed By: #### L [id number], [id number] #### [facility] [address] [place], [address] ALT [Catalytic activity/Vol] 26 U/L Normal <=46 [facility] Comment on above: Performed By: #### L [id number], L100.0100 #### [facility] [address] [place], [address] AST [Catalytic activity/Vol] 26 U/L Normal <=37 [facility] Comment on above: Performed By: #### L [id number], [id number] #### [facility] [address] [place], [address] Bilirubin [Mass/Vol] 0.84 mg/dL Normal 0.00-1.30 [facility] Comment on above: Performed By: #### L [id number], [id number] #### [facility] [address] [place], [address] BUN/CRE 11.0 RATIO Normal 10-20 [facility] Comment on above: Performed By: #### L [id number], [id number] #### [facility] [address] [place], [address] Calcium [Mass/Vol] 9.3 mg/dL Normal 7.6-11.0 [facility] Comment on above: Performed By: #### L [id number], L100.0100 #### [facility] [address] [place], [address] Chloride [Moles/Vol] 104 mmol/L Normal 98-108 [facility] Comment on above: Performed By: #### L [id number], [id number] #### [facility] [address] [place], [address] CO2 [Moles/Vol] 22.2 mmol/L Normal 21.0-32.0 [facility] Comment on above: Performed By: #### L [id number], L100.0100 #### [facility] [address] [place], [address] Creatinine [Mass/Vol] 1.15 mg/dL Normal 0.70-1.20 [facility] Comment on above: Performed By: #### L [id number], L100.0100 #### [facility] [address] [place], [address] GAP 13 Normal 5-15 [facility] Comment on above: Performed By: #### L [id number], [id number] #### [facility] [address] [place], [address] GFR/1.73 sq M.predicted among non-blacks MDRD (S/P/Bld) [Vol rate/Area] 62 mL/min/{1.73_m2} Normal >60 [facility] Comment on above: Result Comment: mL/m in/1.73m2 CKD-EPI Creatinine Equation (2020) Performed By: #### L [id number], [id number] #### [facility] [address] [place], [address] Globulin (S) [Mass/Vol] 2.0 g/dL Low 2.2-4.2 [facility] Comment on above: Performed By: #### L [id number], L100.0100 #### [facility] [address] [place], [address] Glucose [Mass/Vol] 129 mg/dL High 70-99 [facility] Comment on above: Performed By: #### L [id number], L100.0100 #### [facility] [address] [place], [address] Potassium [Moles/Vol] 4.1 mmol/L Normal 3.3-5.1 [facility] Comment on above: Performed By: #### L [id number], L100.0100 #### [facility] [address] [place], [address] Sodium [Moles/Vol] 140 mmol/L Normal 133-145 [facility] Comment on above: Performed By: #### L [id number], L100.0100 #### [facility] [address] [place], [address] T PROT 6.5 g/dL Normal 5.9-8.4 [facility] Comment on above: Performed By: #### L [id number], L100.0100 #### [facility] [address] [place], [address] Urea nitrogen [Mass/Vol] 13 mg/dL Normal 4-19 [facility] Comment on above: Performed By: #### L [id number], [id number] #### [facility] [address] [place], [address] Absolute lymphocyte countOrd ered By: Amairani Sheth on 11-19-2024 Lymphocytes Auto (Unsp spec) [#/Vol] 1.74 10*3/uL 0.83-4.51 [facility] Absolute neutrophil countOrd ered By: Amairani Sheth on 11-19-2024 Neutrophils (Bld) [#/Vol] 5.4 10*3/uL 2.0-7.7 [facility] Anion gap in Serum or Plasma Ordered By: Amairani Sheth on 11-19-2024 Anion gap [Moles/Vol] 12 mmol/L 5-15 [facility] Automated lymphocyte count a s percentage of total leukocytesOrdered By: Amairani Sheth on 11-19-2024 Lymphocytes/100 WBC Auto (Unsp spec) 21.8 % 19-41 [facility] BUN/creatinine ratioOrdered By: Amairanijasmin Sheth on 11-19-2024 Urea nitrogen/Creatinine [Mass ratio] 11.3 mg/mg 10-20 [facility] Basophil percentageOrdered B y: Amairani Sheth on 11-19-2024 Basophils/100 WBC (Bld) 0.9 % 0-1 [facility] Bilirubin, totalOrdered By: [facility] Domenic on 11-19-2024 Bilirubin [Mass/Vol] 0.71 mg/dL 0.00-1.30 [facility] CBC W/Diff, Automatedon Absolute Lymph 1.74 X10 3/uL Normal 0.83-4.51 [facility] Comment on above: Performed By: #### L 100.0100, [id number] #### [facility] [address] [place], [address] Absolute Neut 5.4 X10 3/uL Normal 2.0-7.7 [facility] Comment on above: Performed By: #### L 100.0100, [id number] #### [facility] [address] [place], [address] Basophils/100 WBC (Bld) 0.9 % Normal 0-1 [facility] Comment on above: Performed By: #### L 100.0100, [id number] #### [facility] [address] [place], [address] Eosinophils/100 WBC (Bld) 2.3 % Normal 0-5 [facility] Comment on above: Performed By: #### L 100.0100, [id number] #### [facility] [address] [place], [address] Erythrocyte distribution width (RBC) [Ratio] 19.9 % High 11.6-14.6 [facility] Comment on above: Performed By: #### L 100.0100, [id number] #### [facility] [address] [place], [address] Hematocrit (Bld) [Volume fraction] 35.1 % Low 40-54 [facility] Comment on above: Performed By: #### L 100.0100, L500.4050 #### [facility] [address] [place], [address] Hemoglobin (Bld) [Mass/Vol] 11.1 g/dL Low 13.0-16.5 [facility] Comment on above: Performed By: #### L 100.0100, L500.4050 #### [facility] [address], [address] IG% 0.500 Normal 0.0-0.9 [facility] Comment on above: Result Comment: IG% - Immature Granulocytes (promyelocytes, myelocytes and metamyelocytes) > 1% indicates that a LEFT SHIFT is Present. Performed By: #### L 100.0100, L500.4050 #### [facility] [address] [place], [address] Lymphocytes/100 WBC (Bld) 21.8 % Normal 19-41 [facility] Comment on above: Performed By: #### L 100.0100, L500.4050 #### [facility] [address] [place], [address] MCH (RBC) [Entitic mass] 20.5 pg Low 27.0-32.0 [facility] Comment on above: Performed By: #### L 100.0100, L500.4050 #### [facility] [address] [place], [address] MCHC (RBC) [Mass/Vol] 31.6 g/dL Low 32-36 [facility] Comment on above: Performed By: #### L 100.0100, L500.4050 #### [facility] [address] [place], [address] MCV (RBC) [Entitic vol] 64.9 fL Low 80-94 [facility] Comment on above: Performed By: #### L 100.0100, L500.4050 #### [facility] [address] [place], [address] Monocytes/100 WBC (Bld) 7.4 % Normal 0-10 [facility] Comment on above: Performed By: #### L 100.0100, L500.4050 #### [facility] [address] [place], [address] Neutrophils/100 WBC (Bld) 67.1 % Normal 47-70 [facility] Comment on above: Performed By: #### L 100.0100, L500.4050 #### [facility] [address] [place], [address] Nucleated RBC (Bld) [#/Vol] 0 10*3/uL Normal 0-5 [facility] Comment on above: Performed By: #### L 100.0100, L500.4050 #### [facility] [address] [place], [address] Platelet mean volume (Bld) [Entitic vol] 10.0 fL Normal 6.2-12.0 [facility] Comment on above: Performed By: #### L 100.0100, L500.4050 #### [facility] [address] [place], [address] Platelets (Bld) [#/Vol] 275 10*3/uL Normal 150-450 [facility] Comment on above: Performed By: #### L 100.0100, L500.4050 #### [facility] [address] [place], [address] RBC (Bld) [#/Vol] 5.41 10*6/uL Normal 4.6-6.2 [facility] Comment on above: Performed By: #### L 100.0100, L500.4050 #### [facility] [address] [place], [address] RDW SD 42.8 fl Normal 35.1-43.9 [facility] Comment on above: Performed By: #### L 100.0100, L500.4050 #### [facility] [address] [place], [address] WBC (Bld) [#/Vol] 8.0 10*3/uL Normal 4.4-11.0 [facility] Comment on above: Performed By: #### L 100.0100, L500.4050 #### [facility] [address] [place], [address] Carbon dioxide, total [Moles /volume] in Central venous bloodOrdered By: Amairani Sheth on 11-19-2024 CO2 [Moles/Vol] 22.8 mmol/L 21.0-32.0 [facility] Chloride assayOrdered By: Eduardo Sheth on 11-19-2024 Chloride [Moles/Vol] 107 mmol/L 98-108 [facility] Comprehensive Metabolic Prof ilon 11-19-2024 Albumin [Mass/Vol] 4.2 g/dL Normal 3.4-4.8 [facility] Comment on above: Performed By: #### L 100.0100, L500.4050 #### [facility] [address] [place], [address] Albumin/Globulin [Mass ratio] 1.8 {ratio} Normal 0.9-2.4 [facility] Comment on above: Performed By: #### L 100.0100, L500.4050 #### [facility] [address] [place], [address] ALK PHOS 58 U/L Normal 40-129 [facility] Comment on above: Performed By: #### L 100.0100, L500.4050 #### [facility] [address] [place], [address] ALT [Catalytic activity/Vol] 23 U/L Normal <=46 [facility] Comment on above: Performed By: #### L 100.0100, L500.4050 #### [facility] [address] [place], [address] AST [Catalytic activity/Vol] 24 U/L Normal <=37 [facility] Comment on above: Performed By: #### L 100.0100, L500.4050 #### [facility] [address] [place], [address] Bilirubin [Mass/Vol] 0.71 mg/dL Normal 0.00-1.30 [facility] Comment on above: Performed By: #### L 100.0100, L500.4050 #### [facility] [address] [place], [address] BUN/CRE 11.3 RATIO Normal 10-20 [facility] Comment on above: Performed By: #### L 100.0100, L500.4050 #### [facility] [address] [place], [address] Calcium [Mass/Vol] 9.3 mg/dL Normal 7.6-11.0 [facility] Comment on above: Performed By: #### L 100.0100, L500.4050 #### [facility] [address] [place], [address] Chloride [Moles/Vol] 107 mmol/L Normal 98-108 [facility] Comment on above: Performed By: #### L 100.0100, L500.4050 #### [facility] [address] [place], [address] CO2 [Moles/Vol] 22.8 mmol/L Normal 21.0-32.0 [facility] Comment on above: Performed By: #### L 100.0100, L500.4050 #### [facility] [address] [place], [address] Creatinine [Mass/Vol] 1.27 mg/dL High 0.70-1.20 [facility] Comment on above: Performed By: #### L 100.0100, L500.4050 #### [facility] [address] [place], [address] GAP 12 Normal 5-15 [facility] Comment on above: Performed By: #### L 100.0100, L500.4050 #### [facility] [address] [place], [address] GFR/1.73 sq M.predicted among non-blacks MDRD (S/P/Bld) [Vol rate/Area] 55 mL/min/{1.73_m2} Low >60 [facility] Comment on above: Result Comment: mL/m in/1.73m2 CKD-EPI Creatinine Equation (2020) Performed By: #### L 100.0100, L500.4050 #### [facility] [address] [place], [address] Globulin (S) [Mass/Vol] 2.3 g/dL Normal 2.2-4.2 [facility] Comment on above: Performed By: #### L 100.0100, L500.4050 #### [facility] [address] [place], [address] Glucose [Mass/Vol] 134 mg/dL High 70-99 [facility] Comment on above: Performed By: #### L 100.0100, L500.4050 #### [facility] [address] [place], [address] Potassium [Moles/Vol] 4.0 mmol/L Normal 3.3-5.1 [facility] Comment on above: Performed By: #### L 100.0100, L500.4050 #### [facility] [address] [place], [address] Sodium [Moles/Vol] 142 mmol/L Normal 133-145 [facility] Comment on above: Performed By: #### L 100.0100, L500.4050 #### [facility] [address] [place], [address] T PROT 6.4 g/dL Normal 5.9-8.4 [facility] Comment on above: Performed By: #### L 100.0100, L500.4050 #### [facility] [address] [place], [address] Urea nitrogen [Mass/Vol] 14 mg/dL Normal 4-19 [facility] Comment on above: Performed By: #### L 100.0100, L500.4050 #### [facility] [address] [place], [address] Eosinophil percentageOrdered By: Amairani Sheth on 11-19-2024 Eosinophils/100 WBC (Bld) 2.3 % 0-5 [facility] Erythrocyte distribution wid th ratioOrdered By: Amairani Sheth on 11-19-2024 Erythrocyte distribution width (RBC) [Ratio] 19.9 % High 11.6-14.6 [facility] Erythrocyte distribution wid th standard deviationOrdered By: Amairani Sheth on 11-19-2024 Erythrocyte distribution width (RBC) [Ratio] 42.8 fl 35.1-43.9 [facility] Glomerular filtration rate ( GFR) estimation/1.73 sq m using serum, plasma, or whole bOrdered By: Amairani Sheth on 11-19-2024 GFR/1.73 sq M.predicted among non-blacks MDRD (S/P/Bld) [Vol rate/Area] 55 mL/min/{1.73_m2} Low >60 [facility] Comment on above: mL/min/1.73m2 CKD-EP I Creatinine Equation (2020) Hematocrit Auto (Bld) [Volum e fraction]Ordered By: Amairani Sheth on 11-19-2024 Hematocrit (Bld) [Volume fraction] 35.1 % Low 40-54 [facility] Hemoglobin measurementOrdere d By: Amairani Sheth on 11-19-2024 Hemoglobin (Bld) [Mass/Vol] 11.1 g/dL Low 13.0-16.5 [facility] Immature granulocytes/100 WB C Auto (Bld)Ordered By: Amairani Sheth on 11-19-2024 Immature granulocytes/100 WBC (Bld) 0.500 % 0.0-0.9 [facility] Comment on above: IG% - Immature Granu locytes (promyelocytes, myelocytes and metamyelocytes) > 1% indicates that a LEFT SHIFT is Present. Laboratory - Chemistry and C hemistry - challengeOrdered By: Amairani Sheth on 11-19-2024 AST [Catalytic activity/Vol] 24 U/L <38 [facility] MCV (mean corpuscular volume ) determinationOrdered By: Amairani Sheth on 11-19-2024 MCV (RBC) [Entitic vol] 64.9 fL Low 80-94 [facility] Mean corpuscular hemoglobin (MCH) determinationOrdered By: Amairani Sheth on 11-19-2024 MCH (RBC) [Entitic mass] 20.5 pg Low 27.0-32.0 [facility] Mean corpuscular hemoglobin concentration (MCHC) determinationOrdered By: Amairani Sheth on 11-19-2024 MCHC (RBC) [Mass/Vol] 31.6 g/dL Low 32-36 [facility] Mean platelet volume determi nationOrdered By: Amairani Sheth on 11-19-2024 Platelet mean volume (Bld) [Entitic vol] 10.0 fL 6.2-12.0 [facility] Monocyte percentageOrdered B y: Amairani Sheth on 11-19-2024 Monocytes/100 WBC (Bld) 7.4 % 0-10 [facility] Neutrophil percentageOrdered By: Amairani Sheth on 11-19-2024 Neutrophils/100 WBC (Bld) 67.1 % 47-70 [facility] Nucleated red blood cell per centageOrdered By: Amairani Sheth on 11-19-2024 Nucleated RBC/100 WBC (Bld) [Ratio] 0 % 0-5 [facility] Platelet countOrdered By: Eduardo Sheth on 11-19-2024 Platelets (Bld) [#/Vol] 275 10*3/uL 150-450 [facility] Potassium measurement (mass/ volume)Ordered By: Amairani Sheth on 11-19-2024 Potassium (Unsp spec) [Mass/Vol] 4.0 mmol/L 3.3-5.1 [facility] RBC Auto (Bld) [#/Vol]Ordere d By: Amairani Sheth on 11-19-2024 RBC (Bld) [#/Vol] 5.41 10*6/uL 4.6-6.2 [facility] Serum creatinine measurement (mass/volume)Ordered By: Amairani Sheth on 11-19-2024 Creatinine [Mass/Vol] 1.27 mg/dL High 0.70-1.20 [facility] Serum globulin measurementOr dered By: Amairani Sheth on 11-19-2024 Globulin (S) [Mass/Vol] 2.3 g/dL 2.2-4.2 [facility] Serum glucose measurement (m ass/volume)Ordered By: Amairani Sheth on 11-19-2024 Glucose [Mass/Vol] 134 mg/dL High 70-99 [facility] Serum or plasma alanine velásquez otransferase (ALT) measurementOrdered By: Amairani Sheth on 11-19-2024 ALT [Catalytic activity/Vol] 23 U/L <47 [facility] Serum or plasma albumin marcus urement (mass/volume)Ordered By: Amairani Sheth on 11-19-2024 Albumin [Mass/Vol] 4.2 g/dL 3.4-4.8 [facility] Serum or plasma albumin/glob ulin mass ratioOrdered By: Amairani Sheth on 11-19-2024 Albumin/Globulin [Mass ratio] 1.8 {ratio} 0.9-2.4 [facility] Serum or plasma alkaline alysia sphatase measurementOrdered By: Amairani Sheth on 11-19-2024 ALP [Catalytic activity/Vol] 58 U/L 40-129 [facility] Serum or plasma calcium marcus urement (mass/volume)Ordered By: Amairani Sheth on 11-19-2024 Calcium [Mass/Vol] 9.3 mg/dL 7.6-11.0 [facility] Serum or plasma urea nitroge n measurement (mass/volume)Ordered By: Amairani Sheth on 11-19-2024 Urea nitrogen [Mass/Vol] 14 mg/dL 4-19 [facility] Sodium levelOrdered By: Stewart Sheth on 11-19-2024 Sodium [Moles/Vol] 142 mmol/L 133-145 [facility] Total proteinOrdered By: Verna Sheth on 11-19-2024 Protein [Mass/Vol] 6.4 g/dL 5.9-8.4 [facility] White blood cell (WBC) count Ordered By: Amairani Sheth on 11-19-2024 WBC (Bld) [#/Vol] 8.0 10*3/uL 4.4-11.0 [facility] Absolute lymphocyte countOrd ered By: Amairani Sheth on 08-29-2024 Lymphocytes Auto (Unsp spec) [#/Vol] 1.64 10*3/uL 0.83-4.51 [facility] Absolute neutrophil countOrd ered By: Amairani Sheth on 08-29-2024 Neutrophils (Bld) [#/Vol] 7.3 10*3/uL 2.0-7.7 [facility] Anion gap in Serum or Plasma Ordered By: Amairani Sheth on 08-29-2024 Anion gap [Moles/Vol] 12 mmol/L 5-15 [facility] Automated lymphocyte count a s percentage of total leukocytesOrdered By: Amairani Sheth on 08-29-2024 Lymphocytes/100 WBC Auto (Unsp spec) 16.9 % Low 19-41 [facility] BUN/creatinine ratioOrdered By: Amairani Sheth on 08-29-2024 Urea nitrogen/Creatinine [Mass ratio] 12.3 mg/mg 10-20 [facility] Basophil percentageOrdered B y: Amairani Sheth on 08-29-2024 Basophils/100 WBC (Bld) 0.5 % 0-1 [facility] Bilirubin, totalOrdered By: Amairani Sheth on 08-29-2024 Bilirubin [Mass/Vol] 0.84 mg/dL 0.00-1.30 [facility] CBC W/Diff, Automatedon 08-14 Absolute Lymph 1.64 X10 3/uL Normal 0.83-4.51 [facility] Comment on above: Performed By: #### L 100.0100, L500.4050 #### [facility] [address] [place], [address] Absolute Neut 7.3 X10 3/uL Normal 2.0-7.7 [facility] Comment on above: Performed By: #### L 100.0100, L500.4050 #### [facility] [address] [place], [address] Basophils/100 WBC (Bld) 0.5 % Normal 0-1 [facility] Comment on above: Performed By: #### L 100.0100, L500.4050 #### [facility] [address] [place], [address] Eosinophils/100 WBC (Bld) 1.7 % Normal 0-5 [facility] Comment on above: Performed By: #### L 100.0100, L500.4050 #### [facility] [address] [place], [address] Erythrocyte distribution width (RBC) [Ratio] 18.3 % High 11.6-14.6 [facility] Comment on above: Performed By: #### L 100.0100, L500.4050 #### [facility] [address] [place], [address] Hematocrit (Bld) [Volume fraction] 34.6 % Low 40-54 [facility] Comment on above: Performed By: #### L 100.0100, L500.4050 #### [facility] [address], [address] Hemoglobin (Bld) [Mass/Vol] 11.6 g/dL Low 13.0-16.5 [facility] Comment on above: Performed By: #### L 100.0100, L500.4050 #### [facility] [address] [place], [address] IG% 0.400 Normal 0.0-0.9 [facility] Comment on above: Result Comment: IG% - Immature Granulocytes (promyelocytes, myelocytes and metamyelocytes) > 1% indicates that a LEFT SHIFT is Present. Performed By: #### L 100.0100, L500.4050 #### [facility] [address] [place], [address] Lymphocytes/100 WBC (Bld) 16.9 % Low 19-41 [facility] Comment on above: Performed By: #### L 100.0100, L500.4050 #### [facility] [address] [place], [address] MCH (RBC) [Entitic mass] 21.7 pg Low 27.0-32.0 [facility] Comment on above: Performed By: #### L 100.0100, L500.4050 #### [facility] [address] [place], [address] MCHC (RBC) [Mass/Vol] 33.5 g/dL Normal 32-36 [facility] Comment on above: Performed By: #### L 100.0100, L500.4050 #### [facility] [address] [place], [address] MCV (RBC) [Entitic vol] 64.7 fL Low 80-94 [facility] Comment on above: Performed By: #### L 100.0100, L500.4050 #### [facility] [address] [place], [address] Monocytes/100 WBC (Bld) 5.7 % Normal 0-10 [facility] Comment on above: Performed By: #### L 100.0100, L500.4050 #### [facility] [address] [place], [address] Neutrophils/100 WBC (Bld) 74.8 % High 47-70 [facility] Comment on above: Performed By: #### L 100.0100, L500.4050 #### [facility] [address] [place], [address] Nucleated RBC (Bld) [#/Vol] 0 10*3/uL Normal 0-5 [facility] Comment on above: Performed By: #### L 100.0100, L500.4050 #### [facility] [address] [place], [address] Platelets (Bld) [#/Vol] 243 10*3/uL Normal 150-450 [facility] Comment on above: Performed By: #### L 100.0100, L500.4050 #### [facility] [address] [place], [address] RBC (Bld) [#/Vol] 5.35 10*6/uL Normal 4.6-6.2 [facility] Comment on above: Performed By: #### L 100.0100, L500.4050 #### [facility] [address] [place], [address] RDW SD 39.8 fl Normal 35.1-43.9 [facility] Comment on above: Performed By: #### L 100.0100, L500.4050 #### [facility] [address] [place], [address] WBC (Bld) [#/Vol] 9.7 10*3/uL Normal 4.4-11.0 [facility] Comment on above: Performed By: #### L 100.0100, L500.4050 #### [facility] [address] [place], [address] Carbon dioxide, total [Moles /volume] in Central venous bloodOrdered By: Amairani Sheth on 08-29-2024 CO2 [Moles/Vol] 23.1 mmol/L 21.0-32.0 [facility] Chloride assayOrdered By: Eduardo Sheth on 08-29-2024 Chloride [Moles/Vol] 105 mmol/L 98-108 [facility] Comprehensive Metabolic Prof ilon 08-29-2024 Albumin [Mass/Vol] 4.3 g/dL Normal 3.4-4.8 [facility] Comment on above: Performed By: #### L 100.0100, L500.4050 #### [facility] [address] [place], [address] Albumin/Globulin [Mass ratio] 2.1 {ratio} Normal 0.9-2.4 [facility] Comment on above: Performed By: #### L 100.0100, L500.4050 #### [facility] [address] [place], [address] ALK PHOS 57 U/L Normal 40-129 [facility] Comment on above: Performed By: #### L 100.0100, L500.4050 #### [facility] [address] [place], [address] ALT [Catalytic activity/Vol] 38 U/L Normal <=46 [facility] Comment on above: Performed By: #### L 100.0100, L500.4050 #### [facility] [address] [place], [address] AST [Catalytic activity/Vol] 35 U/L Normal <=37 [facility] Comment on above: Performed By: #### L 100.0100, L500.4050 #### [facility] [address] [place], [address] Bilirubin [Mass/Vol] 0.84 mg/dL Normal 0.00-1.30 [facility] Comment on above: Performed By: #### L 100.0100, L500.4050 #### [facility] [address] [place], [address] BUN/CRE 12.3 RATIO Normal 10-20 [facility] Comment on above: Performed By: #### L 100.0100, L500.4050 #### [facility] [address] [place], [address] Calcium [Mass/Vol] 9.4 mg/dL Normal 7.6-11.0 [facility] Comment on above: Performed By: #### L 100.0100, L500.4050 #### [facility] [address] [place], [address] Chloride [Moles/Vol] 105 mmol/L Normal 98-108 [facility] Comment on above: Performed By: #### L 100.0100, L500.4050 #### [facility] [address] [place], [address] CO2 [Moles/Vol] 23.1 mmol/L Normal 21.0-32.0 [facility] Comment on above: Performed By: #### L 100.0100, L500.4050 #### [facility] [address] [place], [address] Creatinine [Mass/Vol] 1.15 mg/dL Normal 0.70-1.20 [facility] Comment on above: Performed By: #### L 100.0100, L500.4050 #### [facility] [address] [place], [address] GAP 12 Normal 5-15 [facility] Comment on above: Performed By: #### L 100.0100, L500.4050 #### [facility] [address] [place], [address] GFR/1.73 sq M.predicted among non-blacks MDRD (S/P/Bld) [Vol rate/Area] 62 mL/min/{1.73_m2} Normal >60 [facility] Comment on above: Result Comment: mL/m in/1.73m2 CKD-EPI Creatinine Equation (2020) Performed By: #### L 100.0100, L500.4050 #### [facility] [address] [place], [address] Globulin (S) [Mass/Vol] 2.1 g/dL Low 2.2-4.2 [facility] Comment on above: Performed By: #### L 100.0100, L500.4050 #### [facility] [address] [place], [address] Glucose [Mass/Vol] 151 mg/dL High 70-99 [facility] Comment on above: Performed By: #### L 100.0100, L500.4050 #### [facility] [address] [place], [address] Potassium [Moles/Vol] 3.7 mmol/L Normal 3.3-5.1 [facility] Comment on above: Performed By: #### L 100.0100, L500.4050 #### [facility] [address] [place], [address] Sodium [Moles/Vol] 140 mmol/L Normal 133-145 [facility] Comment on above: Performed By: #### L 100.0100, L500.4050 #### [facility] [address] [place], [address] T PROT 6.4 g/dL Normal 5.9-8.4 [facility] Comment on above: Performed By: #### L 100.0100, L500.4050 #### [facility] [address] [place], [place], [id number] Urea nitrogen [Mass/Vol] 14 mg/dL Normal 4-19 [facility] Comment on above: Performed By: #### L 100.0100, L500.4050 #### [facility] [address] [place], [place], [id number] Eosinophil percentageOrdered By: Amairani Sheth on 08-29-2024 Eosinophils/100 WBC (Bld) 1.7 % 0-5 [facility] Erythrocyte distribution wid th ratioOrdered By: Amairani Sheth on 08-29-2024 Erythrocyte distribution width (RBC) [Ratio] 18.3 % High 11.6-14.6 [facility] Erythrocyte distribution wid th standard deviationOrdered By: Amairani Sheth on 08-29-2024 Erythrocyte distribution width (RBC) [Ratio] 39.8 fl 35.1-43.9 [facility] Glomerular filtration rate ( GFR) estimation/1.73 sq m using serum, plasma, or whole bOrdered By: Amairani Sheth on 08-29-2024 GFR/1.73 sq M.predicted among non-blacks MDRD (S/P/Bld) [Vol rate/Area] 62 mL/min/{1.73_m2} >60 [facility] Comment on above: mL/min/1.73m2 CKD-EP I Creatinine Equation (2020) Hematocrit Auto (Bld) [Volum e fraction]Ordered By: Amairani Sheth on 08-29-2024 Hematocrit (Bld) [Volume fraction] 34.6 % Low 40-54 [facility] Hemoglobin measurementOrdere d By: Amairani Sheth on 08-29-2024 Hemoglobin (Bld) [Mass/Vol] 11.6 g/dL Low 13.0-16.5 [facility] Immature granulocytes/100 WB C Auto (Bld)Ordered By: Amairani Sheth on 08-29-2024 Immature granulocytes/100 WBC (Bld) 0.400 % 0.0-0.9 [facility] Comment on above: IG% - Immature Granu locytes (promyelocytes, myelocytes and metamyelocytes) > 1% indicates that a LEFT SHIFT is Present. Laboratory - Chemistry and C hemistry - challengeOrdered By: Amairani Sheth on 08-29-2024 AST [Catalytic activity/Vol] 35 U/L <38 [facility] MCV (mean corpuscular volume ) determinationOrdered By: Amairani Sheth on 08-29-2024 MCV (RBC) [Entitic vol] 64.7 fL Low 80-94 [facility] Mean corpuscular hemoglobin (MCH) determinationOrdered By: Amairani Sheth on 08-29-2024 MCH (RBC) [Entitic mass] 21.7 pg Low 27.0-32.0 [facility] Mean corpuscular hemoglobin concentration (MCHC) determinationOrdered By: Amairani Sheth on 08-29-2024 MCHC (RBC) [Mass/Vol] 33.5 g/dL 32-36 [facility] Monocyte percentageOrdered B y: Amairani Sheth on 08-29-2024 Monocytes/100 WBC (Bld) 5.7 % 0-10 [facility] Neutrophil percentageOrdered By: Amairani Sheth on 08-29-2024 Neutrophils/100 WBC (Bld) 74.8 % High 47-70 [facility] Nucleated red blood cell per centageOrdered By: Amairani Sheth on 08-29-2024 Nucleated RBC/100 WBC (Bld) [Ratio] 0 % 0-5 [facility] Platelet countOrdered By: Eduardo Sheth on 08-29-2024 Platelets (Bld) [#/Vol] 243 10*3/uL 150-450 [facility] Potassium measurement (mass/ volume)Ordered By: Amairani Sheth on 08-29-2024 Potassium (Unsp spec) [Mass/Vol] 3.7 mmol/L 3.3-5.1 [facility] RBC Auto (Bld) [#/Vol]Ordere d By: Amairani Sheth on 08-29-2024 RBC (Bld) [#/Vol] 5.35 10*6/uL 4.6-6.2 [facility] Serum creatinine measurement (mass/volume)Ordered By: Amairani Sheth on 08-29-2024 Creatinine [Mass/Vol] 1.15 mg/dL 0.70-1.20 [facility] Serum globulin measurementOr dered By: Amairani Sheth on 08-29-2024 Globulin (S) [Mass/Vol] 2.1 g/dL Low 2.2-4.2 [facility] Serum glucose measurement (m ass/volume)Ordered By: Amairani Sheth on 08-29-2024 Glucose [Mass/Vol] 151 mg/dL High 70-99 [facility] Serum or plasma alanine velásquez otransferase (ALT) measurementOrdered By: Amairani Sheth on 08-29-2024 ALT [Catalytic activity/Vol] 38 U/L <47 [facility] Serum or plasma albumin marcus urement (mass/volume)Ordered By: Amairani Sheth on 08-29-2024 Albumin [Mass/Vol] 4.3 g/dL 3.4-4.8 [facility] Serum or plasma albumin/glob ulin mass ratioOrdered By: Amairani Sheth on 08-29-2024 Albumin/Globulin [Mass ratio] 2.1 {ratio} 0.9-2.4 [facility] Serum or plasma alkaline alysia sphatase measurementOrdered By: Amairani Sheth on 08-29-2024 ALP [Catalytic activity/Vol] 57 U/L 40-129 [facility] Serum or plasma calcium marcus urement (mass/volume)Ordered By: Amairani Sheth on 08-29-2024 Calcium [Mass/Vol] 9.4 mg/dL 7.6-11.0 [facility] Serum or plasma urea nitroge n measurement (mass/volume)Ordered By: Amairani Sheth on 08-29-2024 Urea nitrogen [Mass/Vol] 14 mg/dL 4-19 [facility] Sodium levelOrdered By: Stewart Sheth on 08-29-2024 Sodium [Moles/Vol] 140 mmol/L 133-145 [facility] Total proteinOrdered By: Verna Sheth on 08-29-2024 Protein [Mass/Vol] 6.4 g/dL 5.9-8.4 [facility] White blood cell (WBC) count Ordered By: Amairani Sheth on 08-29-2024 WBC (Bld) [#/Vol] 9.7 10*3/uL 4.4-11.0 [facility] CBC W/Diff, Automatedon 05-17 Anisocytosis Ql (Bld) 2+ Normal [facility] Comment on above: Performed By: #### L 100.0100, L500.4050 #### [facility] [address] [place], [address] CRENATED RBC RARE Normal [facility] Comment on above: Performed By: #### L 100.0100, L500.4050 #### [facility] [address] [place], [address] HYPOCHROMASIA 1+ Normal [facility] Comment on above: Performed By: #### L 100.0100, L500.4050 #### [facility] [address] [place], [address] SMEAR COMMENT SCANNED Normal [facility] Comment on above: Performed By: #### L 100.0100, L500.4050 #### [facility] [address] [place], [address] TARGET CELLS 1+ Normal [facility] Comment on above: Performed By: #### L 100.0100, L500.4050 #### [facility] [address] [place], [address] Comprehensive Metabolic Prof ilon 06-06-2024 Albumin [Mass/Vol] 3.8 g/dL Normal 3.2-5.0 [facility] Comment on above: Performed By: #### L 100.0100, L500.4050 #### [facility] [address] [place], [address] Albumin/Globulin [Mass ratio] 1.3 {ratio} Normal 0.9-2.4 [facility] Comment on above: Performed By: #### L 100.0100, L500.4050 #### [facility] [address] [place], [address] ALK P 70 U/L Normal 45-117 [facility] Comment on above: Performed By: #### L 100.0100, L500.4050 #### [facility] [address] [place], [address] ALT [Catalytic activity/Vol] 32 U/L Normal 16-61 [facility] Comment on above: Performed By: #### L 100.0100, L500.4050 #### [facility] [address] [place], [address] AST [Catalytic activity/Vol] 21 U/L Normal 15-37 [facility] Comment on above: Performed By: #### L 100.0100, L500.4050 #### [facility] [address] [place], [address] Bilirubin [Mass/Vol] 0.90 mg/dL Normal 0.20-1.00 [facility] Comment on above: Result Comment: For patients on eltrombopag therapy, use of Dimension [place]wn TBIL is not recommended. Performed By: #### L 100.0100, L500.4050 #### [facility] [address] [place], [address] BUN/CRE 10.2 RATIO Normal 10-20 [facility] Comment on above: Performed By: #### L 100.0100, L500.4050 #### [facility] [address] [place], [address] CA,Total 9.2 mg/dL Normal 8.5-10.1 [facility] Comment on above: Performed By: #### L 100.0100, L500.4050 #### [facility] [address] [place], [address] Chloride [Moles/Vol] 107 mmol/L Normal 98-107 [facility] Comment on above: Performed By: #### L 100.0100, L500.4050 #### [facility] [address] [place], [address] CO2 [Moles/Vol] 27.0 mmol/L Normal 21.0-32.0 [facility] Comment on above: Performed By: #### L 100.0100, L500.4050 #### [facility] [address] [place], [address] Creatinine [Mass/Vol] 1.28 mg/dL Normal 0.70-1.30 [facility] Comment on above: Result Comment: The validity of the calculated GFR GFRAA in patients over 70 years has not been determined. Clinical correlation is essential. Performed By: #### L 100.0100, L500.4050 #### [facility] [address] [place], [address] EST GFR - AA 69 mL/min Normal >60 [facility] Comment on above: Result Comment: Afri can Icelandic GFR Calc Performed By: #### L 100.0100, L500.4050 #### [facility] [address] [place], [address] GAP 7 Normal 5-15 [facility] Comment on above: Performed By: #### L 100.0100, L500.4050 #### [facility] [address] [place], [address] GFR/1.73 sq M.predicted among non-blacks MDRD (S/P/Bld) [Vol rate/Area] 57 mL/min/{1.73_m2} Low >60 [facility] Comment on above: Result Comment: Non- GFR Calc Performed By: #### L 100.0100, L500.4050 #### [facility] [address] [place], [address] Globulin (S) [Mass/Vol] 3.0 g/dL Normal 2.2-4.2 [facility] Comment on above: Performed By: #### L 100.0100, L500.4050 #### [facility] [address] [place], [address] Glucose [Mass/Vol] 145 mg/dL High 74-106 [facility] Comment on above: Result Comment: Fast ing Glucose result greater than or equal to 126 mg/dL suggests DIABETES MELLITUS per A.D.A. criteria. Performed By: #### L 100.0100, L500.4050 #### [facility] [address] [place], [address] Potassium [Moles/Vol] 4.0 mmol/L Normal 3.5-5.1 [facility] Comment on above: Performed By: #### L 100.0100, L500.4050 #### [facility] [address] [place], [address] Sodium [Moles/Vol] 141 mmol/L Normal 136-145 [facility] Comment on above: Performed By: #### L 100.0100, L500.4050 #### [facility] [address] [place], [address] T PROT 6.8 g/dL Normal 6.4-8.2 [facility] Comment on above: Performed By: #### L 100.0100, L500.4050 #### [facility] [address] [place], [address] Urea nitrogen [Mass/Vol] 13 mg/dL Normal 7-18 [facility] Comment on above: Performed By: #### L 100.0100, L500.4050 #### [facility] [address] [place], [address] CBC W/Diff, Automatedon 11-2 Absolute Lymph 1.57 X10 3/uL Normal 0.83-4.51 [facility] Comment on above: Performed By: #### L 500.4050, L100.0100 #### [facility] [address] [place], [address] Absolute Neut 7.8 X10 3/uL High 2.0-7.7 [facility] Comment on above: Performed By: #### L 500.4050, L100.0100 #### [facility] [address] [place], [address] Basophils/100 WBC (Bld) 0.4 % Normal 0-1 [facility] Comment on above: Performed By: #### L 500.4050, L100.0100 #### [facility] [address] [place], [address] Eosinophils/100 WBC (Bld) 1.0 % Normal 0-5 [facility] Comment on above: Performed By: #### L 500.4050, L100.0100 #### [facility] [address] [place], [address] Erythrocyte distribution width (RBC) [Ratio] 20.0 % High 11.6-14.6 [facility] Comment on above: Performed By: #### L 500.4050, L100.0100 #### [facility] [address] [place], [address] Hematocrit (Bld) [Volume fraction] 38.3 % Low 40-54 [facility] Comment on above: Performed By: #### L 500.4050, L100.0100 #### [facility] [address] [place], [address] Hemoglobin (Bld) [Mass/Vol] 12.3 g/dL Low 13.0-16.5 [facility] Comment on above: Performed By: #### L 500.4050, L100.0100 #### [facility] [address] [place], [address] IG% 0.500 Normal 0.0-0.9 [facility] Comment on above: Result Comment: IG% - Immature Granulocytes (promyelocytes, myelocytes and metamyelocytes) > 1% indicates that a LEFT SHIFT is Present. Performed By: #### L 500.4050, L100.0100 #### [facility] [address] [place], [address] Lymphocytes/100 WBC (Bld) 15.4 % Low 19-41 [facility] Comment on above: Performed By: #### L 500.4050, L100.0100 #### [facility] [address], [address] MCH (RBC) [Entitic mass] 20.6 pg Low 27.0-32.0 [facility] Comment on above: Performed By: #### L 500.4050, L100.0100 #### [facility] [address] [place], [address] MCHC (RBC) [Mass/Vol] 32.1 g/dL Normal 32-36 [facility] Comment on above: Performed By: #### L 500.4050, L100.0100 #### [facility] [address] [place], [address] MCV (RBC) [Entitic vol] 64.2 fL Low 80-94 [facility] Comment on above: Performed By: #### L 500.4050, L100.0100 #### [facility] [address] [place], [address] Monocytes/100 WBC (Bld) 6.0 % Normal 0-10 [facility] Comment on above: Performed By: #### L 500.4050, L100.0100 #### [facility] [address] [place], [address] Neutrophils/100 WBC (Bld) 76.7 % High 47-70 [facility] Comment on above: Performed By: #### L 500.4050, L100.0100 #### [facility] [address] [place], [address] Nucleated RBC (Bld) [#/Vol] 0 10*3/uL Normal 0-5 [facility] Comment on above: Performed By: #### L 500.4050, L100.0100 #### [facility] [address] [place], [address] Platelet mean volume (Bld) [Entitic vol] 9.8 fL Normal 6.2-12.0 [facility] Comment on above: Performed By: #### L 500.4050, L100.0100 #### [facility] [address] [place], [address] Platelets (Bld) [#/Vol] 193 10*3/uL Normal 150-450 [facility] Comment on above: Performed By: #### L 500.4050, L100.0100 #### [facility] [address] [place], [address] RBC (Bld) [#/Vol] 5.97 10*6/uL Normal 4.6-6.2 [facility] Comment on above: Performed By: #### L 500.4050, L100.0100 #### [facility] [address] [place], [address] RDW SD 40.3 fl Normal 35.1-43.9 [facility] Comment on above: Performed By: #### L 500.4050, L100.0100 #### [facility] [address] [place], [address] WBC (Bld) [#/Vol] 10.2 10*3/uL Normal 4.4-11.0 [facility] Comment on above: Performed By: #### L 500.4050, L100.0100 #### [facility] [address] [place], [address] Comprehensive Metabolic Prof ilon 04-13-2024 Albumin [Mass/Vol] 3.9 g/dL Normal 3.2-5.0 [facility] Comment on above: Performed By: #### L 500.4050, L100.0100 #### [facility] [address] [place], [address] Albumin/Globulin [Mass ratio] 1.6 {ratio} Normal 0.9-2.4 [facility] Comment on above: Performed By: #### L 500.4050, L100.0100 #### [facility] [address] [place], [address] ALK P 60 U/L Normal 45-117 [facility] Comment on above: Performed By: #### L 500.4050, L100.0100 #### [facility] [address] [place], [address] ALT [Catalytic activity/Vol] 35 U/L Normal 16-61 [facility] Comment on above: Performed By: #### L 500.4050, L100.0100 #### [facility] [address] [place], [address] AST [Catalytic activity/Vol] 18 U/L Normal 15-37 [facility] Comment on above: Performed By: #### L 500.4050, L100.0100 #### [facility] [address] [place], [address] Bilirubin [Mass/Vol] 1.00 mg/dL Normal 0.20-1.00 [facility] Comment on above: Result Comment: For patients on eltrombopag therapy, use of Dimension [place]wn TBIL is not recommended. Performed By: #### L 500.4050, L100.0100 #### [facility] [address] [place], [address] BUN/CRE 13.8 RATIO Normal 10-20 [facility] Comment on above: Performed By: #### L 500.4050, L100.0100 #### [facility] [address] [place], [address] CA,Total 9.1 mg/dL Normal 8.5-10.1 [facility] Comment on above: Performed By: #### L 500.4050, L100.0100 #### [facility] [address] [place], [address] Chloride [Moles/Vol] 108 mmol/L High 98-107 [facility] Comment on above: Performed By: #### L 500.4050, L100.0100 #### [facility] [address] [place], [address] CO2 [Moles/Vol] 26.0 mmol/L Normal 21.0-32.0 [facility] Comment on above: Performed By: #### L 500.4050, L100.0100 #### [facility] [address] [place], [address] Creatinine [Mass/Vol] 1.23 mg/dL Normal 0.70-1.30 [facility] Comment on above: Result Comment: The validity of the calculated GFR GFRAA in patients over 70 years has not been determined. Clinical correlation is essential. Performed By: #### L 500.4050, L100.0100 #### [facility] [address] [place], [address] EST GFR - AA 72 mL/min Normal >60 [facility] Comment on above: Result Comment: Afri can Icelandic GFR Calc Performed By: #### L 500.4050, L100.0100 #### [facility] [address] [place], [address] GAP 6 Normal 5-15 [facility] Comment on above: Performed By: #### L 500.4050, L100.0100 #### [facility] [address] [place], [address] GFR/1.73 sq M.predicted among non-blacks MDRD (S/P/Bld) [Vol rate/Area] 59 mL/min/{1.73_m2} Low >60 [facility] Comment on above: Result Comment: Non- GFR Calc Performed By: #### L 500.4050, L100.0100 #### [facility] [address] [place], [address] Globulin (S) [Mass/Vol] 2.5 g/dL Normal 2.2-4.2 [facility] Comment on above: Performed By: #### L 500.4050, L100.0100 #### [facility] [address] [place], [address] Glucose [Mass/Vol] 139 mg/dL High 74-106 [facility] Comment on above: Result Comment: Fast ing Glucose result greater than or equal to 126 mg/dL suggests DIABETES MELLITUS per A.D.A. criteria. Performed By: #### L 500.4050, L100.0100 #### [facility] [address] [place], [address] Potassium [Moles/Vol] 3.8 mmol/L Normal 3.5-5.1 [facility] Comment on above: Performed By: #### L 500.4050, L100.0100 #### [facility] [address] [place], [address] Sodium [Moles/Vol] 140 mmol/L Normal 136-145 [facility] Comment on above: Performed By: #### L 500.4050, L100.0100 #### [facility] [address] [place], [address] T PROT 6.4 g/dL Normal 6.4-8.2 [facility] Comment on above: Performed By: #### L 500.4050, L100.0100 #### [facility] [address] [place], [address] Urea nitrogen [Mass/Vol] 17 mg/dL Normal 7-18 [facility] Comment on above: Performed By: #### L 500.4050, L100.0100 #### [facility] [address] [place], [address] CBC W/Diff, Automatedon 11-0 5-2024 Absolute Lymph 1.92 X10 3/uL Normal 0.83-4.51 [facility] Comment on above: Performed By: #### L 500.4050, L100.0100 #### [facility] [address] [place], [address] Absolute Neut 6.1 X10 3/uL Normal 2.0-7.7 [facility] Comment on above: Performed By: #### L 500.4050, L100.0100 #### [facility] [address] [place], [address] Basophils/100 WBC (Bld) 1.0 % Normal 0-1 [facility] Comment on above: Performed By: #### L 500.4050, L100.0100 #### [facility] [address] [place], [address] Eosinophils/100 WBC (Bld) 2.0 % Normal 0-5 [facility] Comment on above: Performed By: #### L 500.4050, L100.0100 #### [facility] [address] [place], [address] Erythrocyte distribution width (RBC) [Ratio] 19.7 % High 11.6-14.6 [facility] Comment on above: Performed By: #### L 500.4050, L100.0100 #### [facility] [address] [place], [address] Hematocrit (Bld) [Volume fraction] 40.2 % Normal 40-54 [facility] Comment on above: Performed By: #### L 500.4050, L100.0100 #### [facility] [address] [place], [address] Hemoglobin (Bld) [Mass/Vol] 12.4 g/dL Low 13.0-16.5 [facility] Comment on above: Performed By: #### L 500.4050, L100.0100 #### [facility] [address] [place], [address] IG% 0.400 Normal 0.0-0.9 [facility] Comment on above: Result Comment: IG% - Immature Granulocytes (promyelocytes, myelocytes and metamyelocytes) > 1% indicates that a LEFT SHIFT is Present. Performed By: #### L 500.4050, L100.0100 #### [facility] [address] [place], [address] Lymphocytes/100 WBC (Bld) 21.5 % Normal 19-41 [facility] Comment on above: Performed By: #### L 500.4050, L100.0100 #### [facility] [address] [place], [address] MCH (RBC) [Entitic mass] 19.8 pg Low 27.0-32.0 [facility] Comment on above: Performed By: #### L 500.4050, L100.0100 #### [facility] [address] [place], [address] MCHC (RBC) [Mass/Vol] 30.8 g/dL Low 32-36 [facility] Comment on above: Performed By: #### L 500.4050, L100.0100 #### [facility] [address] [place], [address] MCV (RBC) [Entitic vol] 64.2 fL Low 80-94 [facility] Comment on above: Performed By: #### L 500.4050, L100.0100 #### [facility] [address] [place], [address] Monocytes/100 WBC (Bld) 6.8 % Normal 0-10 [facility] Comment on above: Performed By: #### L 500.4050, L100.0100 #### [facility] [address] [place], [address] Neutrophils/100 WBC (Bld) 68.3 % Normal 47-70 [facility] Comment on above: Performed By: #### L 500.4050, L100.0100 #### [facility] [address] [place], [address] Nucleated RBC (Bld) [#/Vol] 0 10*3/uL Normal 0-5 [facility] Comment on above: Performed By: #### L 500.4050, L100.0100 #### [facility] [address] [place], [address] Platelet mean volume (Bld) [Entitic vol] 9.4 fL Normal 6.2-12.0 [facility] Comment on above: Performed By: #### L 500.4050, L100.0100 #### [facility] [address] [place], [address] Platelets (Bld) [#/Vol] 246 10*3/uL Normal 150-450 [facility] Comment on above: Performed By: #### L 500.4050, L100.0100 #### [facility] [address] [place], [address] RBC (Bld) [#/Vol] 6.26 10*6/uL High 4.6-6.2 [facility] Comment on above: Performed By: #### L 500.4050, L100.0100 #### [facility] [address] [place], [address] RDW SD 41.1 fl Normal 35.1-43.9 [facility] Comment on above: Performed By: #### L 500.4050, L100.0100 #### [facility] [address] [place], [address] WBC (Bld) [#/Vol] 8.9 10*3/uL Normal 4.4-11.0 [facility] Comment on above: Performed By: #### L 500.4050, L100.0100 #### [facility] [address] [place], [address] Comprehensive Metabolic Prof [facility] 03-20-2024 Albumin [Mass/Vol] 4.0 g/dL Normal 3.2-5.0 [facility] Comment on above: Performed By: #### L 500.4050, L100.0100 #### [facility] [address] [place], [address] Albumin/Globulin [Mass ratio] 1.3 {ratio} Normal 0.9-2.4 [facility] Comment on above: Performed By: #### L 500.4050, L100.0100 #### [facility] [address] [place], [address] ALK P 64 U/L Normal 45-117 [facility] Comment on above: Performed By: #### L 500.4050, L100.0100 #### [facility] [address] [place], [address] ALT [Catalytic activity/Vol] 35 U/L Normal 16-61 [facility] Comment on above: Performed By: #### L 500.4050, L100.0100 #### [facility] [address] [place], [address] AST [Catalytic activity/Vol] 24 U/L Normal 15-37 [facility] Comment on above: Performed By: #### L 500.4050, L100.0100 #### [facility] [address] [place], [address] Bilirubin [Mass/Vol] 1.00 mg/dL Normal 0.20-1.00 [facility] Comment on above: Result Comment: For patients on eltrombopag therapy, use of Dimension Lawn TBIL is not recommended. Performed By: #### L [id number], L100.0100 #### [facility] [address] [place], [address] BUN/CRE 11.9 RATIO Normal 10-20 [facility] Comment on above: Performed By: #### L [id number], L100.0100 #### [facility] [address] [place], [address] CA,Total 9.5 mg/dL Normal 8.5-10.1 [facility] Comment on above: Performed By: #### L [id number], [id number] #### [facility] [address] [place], [address] Chloride [Moles/Vol] 108 mmol/L High 98-107 [facility] Comment on above: Performed By: #### L [id number], L100.0100 #### [facility] [address] [place], [address] CO2 [Moles/Vol] 27.0 mmol/L Normal 21.0-32.0 [facility] Comment on above: Performed By: #### L [id number], L100.0100 #### [facility] [address] [place], [address] Creatinine [Mass/Vol] 1.35 mg/dL High 0.70-1.30 [facility] Comment on above: Result Comment: The validity of the calculated GFR GFRAA in patients over 70 years has not been determined. Clinical correlation is essential. Performed By: #### L [id number], L100.0100 #### [facility] [address] [place], [address] EST GFR - AA 65 mL/min Normal >60 [facility] Comment on above: Result Comment: Afri can Icelandic GFR Calc Performed By: #### L [id number], L100.0100 #### [facility] [address] [place], [address] GAP 5 Normal 5-15 [facility] Comment on above: Performed By: #### L [id number], L100.0100 #### [facility] [address] [place], [address] GFR/1.73 sq M.predicted among non-blacks MDRD (S/P/Bld) [Vol rate/Area] 53 mL/min/{1.73_m2} Low >60 [facility] Comment on above: Result Comment: Non- GFR Calc Performed By: #### L [id number], L100.0100 #### [facility] [address] [place], [address] Globulin (S) [Mass/Vol] 3.1 g/dL Normal 2.2-4.2 [facility] Comment on above: Performed By: #### L [id number], L100.0100 #### [facility] [address] [place], [address] Glucose [Mass/Vol] 148 mg/dL High 74-106 [facility] Comment on above: Result Comment: Fast ing Glucose result greater than or equal to 126 mg/dL suggests DIABETES MELLITUS per A.D.A. criteria. Performed By: #### L [id number], L100.0100 #### [facility] [address] [place], [address] Potassium [Moles/Vol] 3.9 mmol/L Normal 3.5-5.1 [facility] Comment on above: Performed By: #### L [id number], L100.0100 #### [facility] [address] [place], [address] Sodium [Moles/Vol] 140 mmol/L Normal 136-145 [facility] Comment on above: Performed By: #### L [id number], [id number] #### [facility] [address] [place], [address] T PROT 7.1 g/dL Normal 6.4-8.2 [facility] Comment on above: Performed By: #### L [id number], L100.0100 #### [facility] [address] [place], [address] Urea nitrogen [Mass/Vol] 16 mg/dL Normal 7-18 [facility] Comment on above: Performed By: #### L [id number], L100.0100 #### [facility] [address] [place], [address] XR SPINE LUMBAR AP/LATon XR SPINE LUMBAR AP/LAT ORIGINAL EXAMINATION: 3 XRAY VIEWS OF THE LUMBAR SPINE01/23/2024 12:24 pm COMPARISON: CT July 31, 2023 HISTORY: ORDERING SYSTEM PROVIDED HISTORY: Reason for Exam: acute, right lower back pain. FINDINGS: There are 5 lumbar type vertebrae. Grade 1 anterolisthesis of L4 on L5. No compression deformity. Moderate to severe loss of disc height with endplate sclerosis and osteophyte formation at L5-S1 similar to prior CT. Mild degenerative changes throughout the remainder of the visualized lumbar spine with osteophyte formation and facet arthropathy. IMPRESSION: No compression deformity. Moderate to severe degenerative changes at L5-S1. Additional degenerative changes as above. I have personally reviewed the images of this examination and agree with the resident's findings and interpretation. Interpreted by: Norman Norwood MD Preliminary Report By: Clifford Simon MD Electronically signed By Norman Norwood MD Dictated Date: 01/24/2024 9:04:23 AM Prelim Date: 01/24/2024 10:33:54 AM Sign Date: 01/24/2024 10:33:54 AM Ordering Provider: LENA CORREA [facility] CT SPINE LUMBAR W/O CONTRAST on 07-31-2023 CT SPINE LUMBAR W/O CONTRAST ORIGINAL EXAMINATION: CT OF THE LUMBAR SPINE WITHOUT CONTRAST 07/31/2023 TECHNIQUE: CT of the lumbar spine was performed without the administration of intravenous contrast. Multiplanar reformatted images are provided for review. Adjustment of mA and/or kV according to patient size was utilized. Automated exposure control, iterative reconstruction, and/or weight based adjustment of the mA/kV was utilized to reduce the radiation dose to as low as reasonably achievable. COMPARISON: None HISTORY: ORDERING SYSTEM PROVIDED HISTORY: Reason for Exam: fell onto a hard plastic object in lower back area. pain and swelling in lower back INJURY FINDINGS: BONES/ALIGNMENT: Trace grade 1 anterolisthesis of L4 on L5. The vertebral body heights are maintained. No osseous destructive lesion is seen. Sclerotic focus in L5 vertebral body likely compliance representative dealer of enostosis. Grade 1 anterolisthesis of L4 on L5 without associated pars defect. DEGENERATIVE CHANGES: Multilevel degenerative changes including endplate osteophyte formation disc space height loss most pronounced at L5-S1. Varying levels of foraminal stenosis. Degenerative disc disease at L3-L4 causes at least moderate spinal canal stenosis. Circumferential bulge, facet and ligamentum flavum hypertrophy causes at least moderate to severe spinal canal stenosis at L4-L5. SOFT TISSUES/RETROPERITON EUM: There is a large soft tissue fluid collection measuring at least 3.2 x 7.7 x 11.2 cm (AP, TR, CC dimensions) beginning at the level of at least L3 and extending to at least L2 in the midline subcutaneous fat. This may extend off the edge of the field of view. Hazy infiltrative changes are noted more inferiorly as well. No radiopaque retained foreign body. No locules of air. Greater than simple density round circumscribed exophytic structure arising off the superior pole the left kidney measuring 1.6 x 1.6 cm in the axial plane and 1.7 cm cranio caudally with internal density of 25 Hounsfield units. IMPRESSION: No acute fracture or traumatic malalignment. Large soft tissue hematoma and contusion, as above. No radiopaque retained foreign body. Indeterminate density left upper pole renal structure. Correlate with any prior imaging. Further investigation may be warranted. I have personally reviewed the images of this examination and agree with the resident's findings and interpretation. Interpreted by: Woodrow Allen Preliminary Report By: Clifford Bazan Electronically signed By Woodrow Allen Dictated Date: 07/31/2023 7:33:42 PM Prelim Date: 07/31/2023 7:41:01 PM Sign Date: 07/31/2023 7:50:02 PM Ordering Provider: MARITO LINDER [facility] ([place]) Absolute lymphocyte countOrd ered By: Amairani Sheth on 06-07-2023 Lymphocytes Auto (Unsp spec) [#/Vol] 1.53 10*3/uL 0.83-4.51 [facility] Automated lymphocyte count a s percentage of total leukocytesOrdered By: Amairani Sheth on 06-07-2023 Lymphocytes/100 WBC Auto (Unsp spec) 18.3 % 19-41 [facility] Basophil percentageOrdered B y: Amairani Sheth on 06-07-2023 Basophils/100 WBC (Bld) 1.1 % 0-1 [facility] Bilirubin [Mass/Vol] 1.00 mg/dL 0.20-1.00 [facility] Comment on above: For patients on eltr ombopag therapy, use of Dimension [place]wn TBIL is not recommended. Chloride [Moles/Vol] 111 mmol/L 98-107 [facility] Eosinophils/100 WBC (Bld) 2.0 % 0-5 [facility] Glucose [Mass/Vol] 105 mg/dL 74-106 [facility] Comment on above: Fasting Glucose resu lt from 100 to 125 mg/dL suggests IMPAIRED HOMEOSTASIS per A.D.A. criteria. Hemoglobin (Bld) [Mass/Vol] 12.0 g/dL 13.0-16.5 [facility] Monocytes/100 WBC (Bld) 8.0 % 0-10 [facility] Neutrophils (Bld) [#/Vol] 5.9 10*3/uL 2.0-7.7 [facility] Neutrophils/100 WBC (Bld) 70.4 % 47-70 [facility] Potassium [Moles/Vol] 4.0 mmol/L 3.5-5.1 [facility] Protein [Mass/Vol] 6.9 g/dL 6.4-8.2 [facility] Sodium [Moles/Vol] 140 mmol/L 136-145 [facility] WBC (Bld) [#/Vol] 8.4 10*3/uL 4.4-11.0 [facility] Determination of erythrocyte mean corpuscular volume (MCV)Ordered By: Amairani Sheth on 06-07-2023 MCV (RBC) [Entitic vol] 62.5 fL 80-94 [facility] Erythrocyte distribution wid th ratioOrdered By: [facility] Domenic on 06-07-2023 Erythrocyte distribution width (RBC) [Ratio] 18.6 % 11.6-14.6 [facility] Erythrocyte distribution wid th standard deviationOrdered By: Amairani Sheth on 06-07-2023 Erythrocyte distribution width (RBC) [Entitic vol] 37.9 fL 35.1-43.9 [facility] Hematocrit Auto (Bld) [Volum e fraction]Ordered By: Amairani Sheth on 06-07-2023 Hematocrit (Bld) [Volume fraction] 37.9 % 40-54 [facility] Immature granulocytes/100 WB C Auto (Bld)Ordered By: Amairani Sheth on 06-07-2023 Immature granulocytes/100 WBC (Bld) 0.200 % 0.0-0.9 [facility] Comment on above: IG% - Immature Granu locytes (promyelocytes, myelocytes and metamyelocytes) > 1% indicates that a LEFT SHIFT is Present. Laboratory - Chemistry and C hemistry - challengeOrdered By: Amairani Sheth on 06-07-2023 Albumin/Globulin [Mass ratio] 1.3 {ratio} 0.9-2.4 [facility] ALP [Catalytic activity/Vol] 53 U/L 45-117 [facility] ALT [Catalytic activity/Vol] 25 U/L 16-61 [facility] CO2 [Moles/Vol] 21.0 mmol/L 21.0-32.0 [facility] Globulin (S) [Mass/Vol] 3.0 g/dL 2.2-4.2 [facility] Urea nitrogen/Creatinine [Mass ratio] 15.7 mg/mg 10-20 [facility] Laboratory - Hematology and Cell countsOrdered By: Amairani Sheth on 06-07-2023 MCH (RBC) [Entitic mass] 19.8 pg 27.0-32.0 [facility] MCHC (RBC) [Mass/Vol] 31.7 g/dL 32-36 [facility] Nucleated RBC/100 WBC (Bld) [Ratio] 0 % 0-5 [facility] Platelets (Bld) [#/Vol] 294 10*3/uL 150-450 [facility] No Panel InformationOrdered By: Amairani Sheth on 06-07-2023 Estimated GFR (MDRD) Amer 56 mL/min >60 [facility] Comment on above: GFR Calc Estimated GFR (MDRD) Non-Af Amer 46 mL/min >60 [facility] Comment on above: Non- GFR Calc Platelet mean volume Shahid-Ec ker (Bld) [Entitic vol]Ordered By: Amairani Sheth on 06-07-2023 Platelet mean volume (Bld) [Entitic vol] 9.4 fL 6.2-12.0 [facility] RBC Auto (Bld) [#/Vol]Ordere d By: Amairani Sheth on 06-07-2023 RBC (Bld) [#/Vol] 6.06 10*6/uL 4.6-6.2 [facility] Serum or plasma calcium marcus urement (mass/volume)Ordered By: Amairani Sheth on 06-07-2023 Calcium [Mass/Vol] 9.4 mg/dL 8.5-10.1 [facility] Serum or plasma creatinine m easurement (mass/volume)Ordered By: Amairani Sheth on 06-07-2023 Creatinine [Mass/Vol] 1.53 mg/dL 0.70-1.30 [facility] Comment on above: The validity of the calculated GFR & GFRAA in patients over 70 years has not been determined. Clinical correlation is essential. Serum or plasma urea nitroge n measurement (mass/volume)Ordered By: Amairani Sheth on 06-07-2023 Urea nitrogen [Mass/Vol] 24 mg/dL 7-18 [facility] Thin prep Papanicolaou smear with manual screeningOrdered By: [facility] Domenic on 06-07-2023 Thin prep Papanicolaou smear with manual screening 3.9 g/dL 3.2-5.0 [facility] Thin prep Papanicolaou smear with manual screening 18 U/L 15-37 [facility] Thin prep Papanicolaou smear with manual screening 8 5-15 [facility] [id number] 05-26-2023 SARS-CoV-2 (COVID-19) RNA JL+probe Ql (Unsp spec) Negative Normal Negative [facility] ([place]) Comment on above: Performed By: #### C OVD19 #### [address] [address] SARS-CoV-2 (COVID-19) RNA JL+probe Ql (Unsp spec) Normal [facility] ([place]) Comment on above: Result Comment: Nega tive results do not preclude SARS-CoV-2 infection and should not be used as the sole basis for patient management decisions. Negative results must be combined with clinical observations, patient history, and epidemiological information. There is a risk of false negative values resulting from improperly collected, transported, or handled specimens. There is a risk of false negative values due to the presence of sequence variants in the pathogen targets of the assay, procedural errors, amplification inhibitors in specimens, or inadequate numbers of organisms for amplification. NAM SARS-CoV-2 Assay is a Real-Time reverse-transcriptase polymerase chain reaction (RT-PCR) based qualitative in vitro diagnostic test intended for the qualitative detection of nucleic acid from the SARS-CoV-2 in nasopharyngeal swab specimens collected from individuals suspected of COVID-19 by their healthcare provider. Testing is limited to laboratories certified under the Clinical Laboratory Improvement Amendments of 1988 (CLIA), 42 U.S.C. ?263a, to perform moderate and high complexity tests. COVID-19 Int Performed By: #### C OVD19 #### [address] [address] FLURSVon 05-26-2023 Flu A PCR (AO) Negative Normal Negative [facility] ([place]) Comment on above: Result Comment: Posi tive Results: Positive Flu A/B or RSV for by PCR. Positive test results do not rule out bacterial infection or co-infection with other pathogens. Test results should be interpreted in conjunction with other laboratory and clinical data. Negative Results: Negative for by PCR. Negative test results do not preclude influenza virus or RSV infection and should not be used as the sole basis for diagnosis, treatment, or other management decisions. There is a risk of false negative RSV results when at low concentration and in the presence of co-infection with high concentration of influenza A. Invalid Results: An Invalid result (INV) was obtained. The test was repeated with similar results. REPEAT COLLECTION AND TESTING IS RECOMMENDED. The [employer] Flu A/B & RSV Assay is a real-time polymerase chain reaction (PCR) based qualitative in vitro diagnostic test for the direct detection and differentiation of influenza A virus, influenza B virus, and respiratory syncytial virus (RSV) nucleic acid in nasopharyngeal swab ([employer]) specimens from patients with signs and symptoms of respiratory infection in conjunction with clinical and laboratory findings. The test is intended for use as an aid in the differential diagnosis of influenza A virus, influenza B virus, and RSV in humans and is not intended to detect influenza C. Performed By: #### F LURSV #### [id number] [place], [place] [address] Flu B PCR (AO) Negative Normal Negative [facility] ([place]) Comment on above: Result Comment: Posi tive Results: Positive Flu A/B or RSV for by PCR. Positive test results do not rule out bacterial infection or co-infection with other pathogens. Test results should be interpreted in conjunction with other laboratory and clinical data. Negative Results: Negative for by PCR. Negative test results do not preclude influenza virus or RSV infection and should not be used as the sole basis for diagnosis, treatment, or other management decisions. There is a risk of false negative RSV results when at low concentration and in the presence of co-infection with high concentration of influenza A. Invalid Results: An Invalid result (INV) was obtained. The test was repeated with similar results. REPEAT COLLECTION AND TESTING IS RECOMMENDED. The Nam Flu A/B & RSV Assay is a real-time polymerase chain reaction (PCR) based qualitative in vitro diagnostic test for the direct detection and differentiation of influenza A virus, influenza B virus, and respiratory syncytial virus (RSV) nucleic acid in nasopharyngeal swab (SENIOR [employer]OR [employer]IGHT) specimens from patients with signs and symptoms of respiratory infection in conjunction with clinical and laboratory findings. The test is intended for use as an aid in the differential diagnosis of influenza A virus, influenza B virus, and RSV in humans and is not intended to detect influenza C. Performed By: #### F JERROD #### [address] [address] RSV PCR (AO) Negative Normal Negative [facility] ([place]) Comment on above: Result Comment: Posi tive Results: Positive Flu A/B or RSV for by PCR. Positive test results do not rule out bacterial infection or co-infection with other pathogens. Test results should be interpreted in conjunction with other laboratory and clinical data. Negative Results: Negative for by PCR. Negative test results do not preclude influenza virus or RSV infection and should not be used as the sole basis for diagnosis, treatment, or other management decisions. There is a risk of false negative RSV results when at low concentration and in the presence of co-infection with high concentration of influenza A. Invalid Results: An Invalid result (INV) was obtained. The test was repeated with similar results. REPEAT COLLECTION AND TESTING IS RECOMMENDED. The [employer] Flu A/B & RSV Assay is a real-time polymerase chain reaction (PCR) based qualitative in vitro diagnostic test for the direct detection and differentiation of influenza A virus, influenza B virus, and respiratory syncytial virus (RSV) nucleic acid in nasopharyngeal swab (SENIOR [employer]OR [employer]IGHT) specimens from patients with signs and symptoms of respiratory infection in conjunction with clinical and laboratory findings. The test is intended for use as an aid in the differential diagnosis of influenza A virus, influenza B virus, and RSV in humans and is not intended to detect influenza C. Performed By: #### F LURSV #### [address] [address] LABORATORYOrdered By: Erica Perez on 05-26-2023 FLUAV RNA JL+probe Ql (Upper resp) Negative 1 (05/26/23 1:42 PM) Normal AO Auto Urine SS Comment on above: Interpretive Data: P ositive Results: Positive Flu A/B or RSV for by PCR. Positive test results do not rule out bacterial infection or co-infection with other pathogens. Test results should be interpreted in conjunction with other laboratory and clinical data. Negative Results: Negative for by PCR. Negative test results do not preclude influenza virus or RSV infection and should not be used as the sole basis for diagnosis, treatment, or other management decisions. There is a risk of false negative RSV results when at low concentration and in the presence of co-infection with high concentration of influenza A. Invalid Results: An Invalid result (INV) was obtained. The test was repeated with similar results. REPEAT COLLECTION AND TESTING IS RECOMMENDED. The [employer] Flu A/B & RSV Assay is a real-time polymerase chain reaction (PCR) based qualitative in vitro diagnostic test for the direct detection and differentiation of influenza A virus, influenza B virus, and respiratory syncytial virus (RSV) nucleic acid in nasopharyngeal swab (S[employer]IOR [employer]OR [employer]IGHT) specimens from patients with signs and symptoms of respiratory infection in conjunction with clinical and laboratory findings. The test is intended for use as an aid in the differential diagnosis of influenza A virus, influenza B virus, and RSV in humans and is not intended to detect influenza C. FLUBV RNA JL+probe Ql (Upper resp) Negative 2 (05/26/23 1:42 PM) Normal AO Auto Urine SS Comment on above: Interpretive Data: P ositive Results: Positive Flu A/B or RSV for by PCR. Positive test results do not rule out bacterial infection or co-infection with other pathogens. Test results should be interpreted in conjunction with other laboratory and clinical data. Negative Results: Negative for by PCR. Negative test results do not preclude influenza virus or RSV infection and should not be used as the sole basis for diagnosis, treatment, or other management decisions. There is a risk of false negative RSV results when at low concentration and in the presence of co-infection with high concentration of influenza A. Invalid Results: An Invalid result (INV) was obtained. The test was repeated with similar results. REPEAT COLLECTION AND TESTING IS RECOMMENDED. The [employer] Flu A/B & RSV Assay is a real-time polymerase chain reaction (PCR) based qualitative in vitro diagnostic test for the direct detection and differentiation of influenza A virus, influenza B virus, and respiratory syncytial virus (RSV) nucleic acid in nasopharyngeal swab (S[employer]IGHT) specimens from patients with signs and symptoms of respiratory infection in conjunction with clinical and laboratory findings. The test is intended for use as an aid in the differential diagnosis of influenza A virus, influenza B virus, and RSV in humans and is not intended to detect influenza C. RSV RNA JL+probe Ql (Upper resp) Negative 3 (05/26/23 1:42 PM) Normal AO Auto Urine SS Comment on above: Interpretive Data: P ositive Results: Positive Flu A/B or RSV for by PCR. Positive test results do not rule out bacterial infection or co-infection with other pathogens. Test results should be interpreted in conjunction with other laboratory and clinical data. Negative Results: Negative for by PCR. Negative test results do not preclude influenza virus or RSV infection and should not be used as the sole basis for diagnosis, treatment, or other management decisions. There is a risk of false negative RSV results when at low concentration and in the presence of co-infection with high concentration of influenza A. Invalid Results: An Invalid result (INV) was obtained. The test was repeated with similar results. REPEAT COLLECTION AND TESTING IS RECOMMENDED. The [employer] Flu A/B & RSV Assay is a real-time polymerase chain reaction (PCR) based qualitative in vitro diagnostic test for the direct detection and differentiation of influenza A virus, influenza B virus, and respiratory syncytial virus (RSV) nucleic acid in nasopharyngeal swab (S[employer]IOR [employer]OR [employer]IGHT) specimens from patients with signs and symptoms of respiratory infection in conjunction with clinical and laboratory findings. The test is intended for use as an aid in the differential diagnosis of influenza A virus, influenza B virus, and RSV in humans and is not intended to detect influenza C. SARS-CoV-2 (COVID-19) RNA JL+probe Ql (Resp) Negative results do not preclude SARS-CoV-2 infection and should not be used as the sole basis for patient management decisions. Negative results must be combined with clinical observations, patient history, and epidemiological information.There is a risk of false negative values resulting from improperly collected, transported, or handled specimens.There is a risk of false negative values due to the presence of sequence variants in the pathogen targets of the assay, procedural errors, amplification inhibitors in specimens, or inadequate numbers of organisms for amplification.NAM SARS-CoV-2 Assay is a Real-Time reverse-transcriptas e polymerase chain reaction (RT-PCR) based qualitative in vitro diagnostic test intended for the qualitative detection of nucleic acid from the SARS-CoV-2 in nasopharyngeal swab specimens collected from individuals suspected of COVID-19 by their healthcare provider. Testing is limited to laboratories certified under the Clinical Laboratory Improvement Amendments of 1988 (CLIA), 42 U.S.C. 263a, to perform moderate and high complexity tests. Invalid Interpretation Code AO Auto Urine SS Absolute lymphocyte countOrd ered By: Amairani Sheth on 02-22-2023 Lymphocytes Auto (Unsp spec) [#/Vol] 2.05 10*3/uL 0.83-4.51 [facility] Basophil percentageOrdered B y: Amairani Sheth on 02-22-2023 Basophils/100 WBC (Bld) 0.8 % 0-1 [facility] Bilirubin [Mass/Vol] 0.80 mg/dL 0.20-1.00 [facility] Comment on above: For patients on eltr ombopag therapy, use of [place] TBIL is not recommended. Chloride [Moles/Vol] 111 mmol/L 98-107 [facility] Eosinophils/100 WBC (Bld) 1.8 % 0-5 [facility] Glucose [Mass/Vol] 133 mg/dL 74-106 [facility] Comment on above: Fasting Glucose resu lt greater than or equal to 126 mg/dL suggests DIABETES MELLITUS per A.D.A. criteria. Neutrophils (Bld) [#/Vol] 6.5 10*3/uL 2.0-7.7 [facility] Neutrophils/100 WBC (Bld) 68.3 % 47-70 [facility] Potassium [Moles/Vol] 3.8 mmol/L 3.5-5.1 [facility] Protein [Mass/Vol] 7.0 g/dL 6.4-8.2 [facility] Sodium [Moles/Vol] 142 mmol/L 136-145 [facility] WBC (Bld) [#/Vol] 9.5 10*3/uL 4.4-11.0 [facility] Blood erythrocytes count (nu mber/volume)Ordered By: Amairani Sheth on 02-22-2023 RBC (Bld) [#/Vol] 5.90 10*6/uL 4.6-6.2 [facility] Blood hemoglobin measurement (mass/volume)Ordered By: Amairani Sheth on 02-22-2023 Hemoglobin (Bld) [Mass/Vol] 11.7 g/dL 13.0-16.5 [facility] Blood lymphocytes/100 leukoc ytesOrdered By: Amairani Sheth on 02-22-2023 Lymphocytes/100 WBC (Bld) 21.7 % 19-41 [facility] Blood monocytes/100 leukocyt esOrdered By: Amairani Sheth on 02-22-2023 Monocytes/100 WBC (Bld) 6.8 % 0-10 [facility] Blood platelet mean volumeOr dered By: Amairani Sheth on 02-22-2023 Platelet mean volume (Bld) [Entitic vol] 10.2 fL 6.2-12.0 [facility] Determination of erythrocyte mean corpuscular volume (MCV)Ordered By: Amairani Sheth on 02-22-2023 MCV (RBC) [Entitic vol] 64.9 fL 80-94 [facility] Hematocrit Auto (Bld) [Volum e fraction]Ordered By: Amairani Sheth on 02-22-2023 Hematocrit (Bld) [Volume fraction] 38.3 % 40-54 [facility] Laboratory - Chemistry and C hemistry - challengeOrdered By: Amairani Sheth on 02-22-2023 ALP [Catalytic activity/Vol] 65 U/L 45-117 [facility] ALT [Catalytic activity/Vol] 30 U/L 16-61 [facility] CO2 [Moles/Vol] 25.0 mmol/L 21.0-32.0 [facility] Globulin (S) [Mass/Vol] 3.2 g/dL 2.2-4.2 [facility] Urea nitrogen/Creatinine [Mass ratio] 9.4 mg/mg 10-20 [facility] Laboratory - Hematology and Cell countsOrdered By: Amairani Sheth on 02-22-2023 Erythrocyte distribution width (RBC) [Entitic vol] 40.3 fL 35.1-43.9 [facility] Erythrocyte distribution width (RBC) [Ratio] 19.3 % 11.6-14.6 [facility] Immature granulocytes/100 WBC (Bld) 0.600 % 0.0-0.9 [facility] Comment on above: IG% - Immature Granu locytes (promyelocytes, myelocytes and metamyelocytes) > 1% indicates that a LEFT SHIFT is Present. MCH (RBC) [Entitic mass] 19.8 pg 27.0-32.0 [facility] Nucleated RBC/100 WBC (Bld) [Ratio] 0.2 % 0-5 [facility] MCHC Auto (RBC) [Mass/Vol]Or dered By: Amairani Sheth on 02-22-2023 MCHC (RBC) [Mass/Vol] 30.5 g/dL 32-36 [facility] No Panel InformationOrdered By: Amairani Sheth on 02-22-2023 Estimated GFR (MDRD) Amer 69 mL/min >60 [facility] Comment on above: GFR Calc Estimated GFR (MDRD) Non-Af Amer 57 mL/min >60 [facility] Comment on above: Non- GFR Calc Platelets bldOrdered By: Verna Sheth on 02-22-2023 Platelets (Bld) [#/Vol] 227 10*3/uL 150-450 [facility] Serum or plasma albumin marcus urement (mass/volume)Ordered By: Amairani Sheth on 02-22-2023 Albumin [Mass/Vol] 3.8 g/dL 3.2-5.0 [facility] Serum or plasma albumin/glob ulin mass ratioOrdered By: Amairani Sheth on 02-22-2023 Albumin/Globulin [Mass ratio] 1.2 {ratio} 0.9-2.4 [facility] Serum or plasma calcium marcus urement (mass/volume)Ordered By: Amairani Sheth on 02-22-2023 Calcium [Mass/Vol] 9.0 mg/dL 8.5-10.1 [facility] Serum or plasma creatinine m easurement (mass/volume)Ordered By: Amairani Sheth on 02-22-2023 Creatinine [Mass/Vol] 1.28 mg/dL 0.70-1.30 [facility] Comment on above: The validity of the calculated GFR & GFRAA in patients over 70 years has not been determined. Clinical correlation is essential. Serum or plasma urea nitroge n measurement (mass/volume)Ordered By: Amairani Sheth on 02-22-2023 Urea nitrogen [Mass/Vol] 12 mg/dL 7-18 [facility] Thin prep Papanicolaou smear with manual screeningOrdered By: Amairani Sheth on 02-22-2023 Thin prep Papanicolaou smear with manual screening 20 U/L 15-37 [facility] Thin prep Papanicolaou smear with manual screening 6 5-15 [facility] Absolute lymphocyte countOrd ered By: Amairanijasmin Sheth on 11-26-2022 Lymphocytes Auto (Unsp spec) [#/Vol] 1.78 10*3/uL 0.83-4.51 [facility] Basophil percentageOrdered B y: Amairani Sheth on 11-26-2022 Basophils/100 WBC (Bld) 0.7 % 0-1 [facility] Bilirubin [Mass/Vol] 0.70 mg/dL 0.20-1.00 [facility] Comment on above: For patients on eltr ombopag therapy, use of [place] TBIL is not recommended. Chloride [Moles/Vol] 107 mmol/L 98-107 [facility] Eosinophils/100 WBC (Bld) 1.2 % 0-5 [facility] Glucose [Mass/Vol] 132 mg/dL 74-106 [facility] Comment on above: Fasting Glucose resu lt greater than or equal to 126 mg/dL suggests DIABETES MELLITUS per A.D.A. criteria. Neutrophils (Bld) [#/Vol] 6.3 10*3/uL 2.0-7.7 [facility] Neutrophils/100 WBC (Bld) 71.4 % 47-70 [facility] Potassium [Moles/Vol] 3.6 mmol/L 3.5-5.1 [facility] Protein [Mass/Vol] 6.8 g/dL 6.4-8.2 [facility] Sodium [Moles/Vol] 139 mmol/L 136-145 [facility] WBC (Bld) [#/Vol] 8.8 10*3/uL 4.4-11.0 [facility] Blood erythrocytes count (nu mber/volume)Ordered By: Amairani Sheth on 11-26-2022 RBC (Bld) [#/Vol] 5.41 10*6/uL 4.6-6.2 [facility] Blood hemoglobin measurement (mass/volume)Ordered By: Amairani Sheth on 11-26-2022 Hemoglobin (Bld) [Mass/Vol] 11.4 g/dL 13.0-16.5 [facility] Blood lymphocytes/100 leukoc ytesOrdered By: Amairanijasmin Sheth on 11-26-2022 Lymphocytes/100 WBC (Bld) 20.2 % 19-41 [facility] Blood monocytes/100 leukocyt esOrdered By: Amairanijasmin Sheth on 11-26-2022 Monocytes/100 WBC (Bld) 6.2 % 0-10 [facility] Blood platelet mean volumeOr dered By: Amairanijasmin Sheth on 11-26-2022 Platelet mean volume (Bld) [Entitic vol] 10.2 fL 6.2-12.0 [facility] Determination of erythrocyte mean corpuscular volume (MCV)Ordered By: Amairanijasmin Sheth on 11-26-2022 MCV (RBC) [Entitic vol] 65.6 fL 80-94 [facility] Hematocrit Auto (Bld) [Volum e fraction]Ordered By: Amairani Sheth on 11-26-2022 Hematocrit (Bld) [Volume fraction] 35.5 % 40-54 [facility] Laboratory - Chemistry and C hemistry - challengeOrdered By: Amairanijasmin Sheth on 11-26-2022 ALP [Catalytic activity/Vol] 52 U/L 45-117 [facility] ALT [Catalytic activity/Vol] 25 U/L 16-61 [facility] CO2 [Moles/Vol] 26.0 mmol/L 21.0-32.0 [facility] Globulin (S) [Mass/Vol] 3.1 g/dL 2.2-4.2 [facility] Urea nitrogen/Creatinine [Mass ratio] 8.8 mg/mg 10-20 [facility] Laboratory - Hematology and Cell countsOrdered By: Amairanijasmin Sheth on 11-26-2022 Erythrocyte distribution width (RBC) [Entitic vol] 38.9 fL 35.1-43.9 [facility] Erythrocyte distribution width (RBC) [Ratio] 17.2 % 11.6-14.6 [facility] Immature granulocytes/100 WBC (Bld) 0.300 % 0.0-0.9 [facility] Comment on above: IG% - Immature Granu locytes (promyelocytes, myelocytes and metamyelocytes) > 1% indicates that a LEFT SHIFT is Present. MCH (RBC) [Entitic mass] 21.1 pg 27.0-32.0 [facility] Nucleated RBC/100 WBC (Bld) [Ratio] 0 % 0-5 [facility] MCHC Auto (RBC) [Mass/Vol]Or dered By: Amairani Sheth on 11-26-2022 MCHC (RBC) [Mass/Vol] 32.1 g/dL 32-36 [facility] No Panel InformationOrdered By: Amairani Sheth on 11-26-2022 Estimated GFR (MDRD) Amer 64 mL/min >60 [facility] Comment on above: GFR Calc Estimated GFR (MDRD) Non-Af Amer 53 mL/min >60 [facility] Comment on above: Non- GFR Calc Platelets bldOrdered By: Verna Sheth on 11-26-2022 Platelets (Bld) [#/Vol] 271 10*3/uL 150-450 [facility] Serum or plasma albumin marcus urement (mass/volume)Ordered By: Amairani Sheth on 11-26-2022 Albumin [Mass/Vol] 3.7 g/dL 3.2-5.0 [facility] Serum or plasma albumin/glob ulin mass ratioOrdered By: Amairani Sheth on 11-26-2022 Albumin/Globulin [Mass ratio] 1.2 {ratio} 0.9-2.4 [facility] Serum or plasma calcium marcus urement (mass/volume)Ordered By: Amairani Sheth on 11-26-2022 Calcium [Mass/Vol] 9.1 mg/dL 8.5-10.1 [facility] Serum or plasma creatinine m easurement (mass/volume)Ordered By: Amairani Sheth on 11-26-2022 Creatinine [Mass/Vol] 1.36 mg/dL 0.70-1.30 [facility] Comment on above: The validity of the calculated GFR & GFRAA in patients over 70 years has not been determined. Clinical correlation is essential. Serum or plasma urea nitroge n measurement (mass/volume)Ordered By: Amairani Sheth on 11-26-2022 Urea nitrogen [Mass/Vol] 12 mg/dL 7-18 [facility] Thin prep Papanicolaou smear with manual screeningOrdered By: Amairani Sheth on 11-26-2022 Thin prep Papanicolaou smear with manual screening 19 U/L 15-37 [facility] Thin prep Papanicolaou smear with manual screening 6 5-15 [facility] Absolute lymphocyte countOrd ered By: Amairani Sheth on 10-06-2022 Lymphocytes Auto (Unsp spec) [#/Vol] 2.74 10*3/uL 0.83-4.51 [facility] Basophil percentageOrdered B y: Amairani Sheth on 10-06-2022 Basophils/100 WBC (Bld) 0.7 % 0-1 [facility] Bilirubin [Mass/Vol] 0.80 mg/dL 0.20-1.00 [facility] Comment on above: For patients on eltr ombopag therapy, use of [place] TBIL is not recommended. Chloride [Moles/Vol] 108 mmol/L 98-107 [facility] Eosinophils/100 WBC (Bld) 0.4 % 0-5 [facility] Glucose [Mass/Vol] 103 mg/dL 74-106 [facility] Comment on above: Fasting Glucose resu lt from 100 to 125 mg/dL suggests IMPAIRED HOMEOSTASIS per A.D.A. criteria. Neutrophils (Bld) [#/Vol] 7.9 10*3/uL 2.0-7.7 [facility] Neutrophils/100 WBC (Bld) 66.9 % 47-70 [facility] Potassium [Moles/Vol] 3.7 mmol/L 3.5-5.1 [facility] Protein [Mass/Vol] 7.1 g/dL 6.4-8.2 [facility] Sodium [Moles/Vol] 142 mmol/L 136-145 [facility] WBC (Bld) [#/Vol] 11.8 10*3/uL 4.4-11.0 [facility] Blood erythrocytes count (nu mber/volume)Ordered By: Amairani Sheth on 10-06-2022 RBC (Bld) [#/Vol] 5.84 10*6/uL 4.6-6.2 [facility] Blood hemoglobin measurement (mass/volume)Ordered By: Amairani Sheth on 10-06-2022 Hemoglobin (Bld) [Mass/Vol] 12.0 g/dL 13.0-16.5 [facility] Blood lymphocytes/100 leukoc ytesOrdered By: Amairani Sheth on 10-06-2022 Lymphocytes/100 WBC (Bld) 23.2 % 19-41 [facility] Blood monocytes/100 leukocyt esOrdered By: Amairani Sheth on 10-06-2022 Monocytes/100 WBC (Bld) 8.0 % 0-10 [facility] Blood platelet mean volumeOr dered By: Amairani Sheth on 10-06-2022 Platelet mean volume (Bld) [Entitic vol] 10.1 fL 6.2-12.0 [facility] Determination of erythrocyte mean corpuscular volume (MCV)Ordered By: Amairani Sheth on 10-06-2022 MCV (RBC) [Entitic vol] 65.9 fL 80-94 [facility] Erythrocyte sedimentation ra teOrdered By: Amairani Sheth on 10-06-2022 ESR (Bld) [Velocity] 9 mm/h 0-20 [facility] Hematocrit Auto (Bld) [Volum e fraction]Ordered By: Amairani Sheth on 10-06-2022 Hematocrit (Bld) [Volume fraction] 38.5 % 40-54 [facility] Laboratory - Chemistry and C hemistry - challengeOrdered By: Amairani Sheth on 10-06-2022 ALP [Catalytic activity/Vol] 54 U/L 45-117 [facility] ALT [Catalytic activity/Vol] 38 U/L 16-61 [facility] CO2 [Moles/Vol] 24.0 mmol/L 21.0-32.0 [facility] Globulin (S) [Mass/Vol] 3.2 g/dL 2.2-4.2 [facility] Urea nitrogen/Creatinine [Mass ratio] 18.9 mg/mg 10-20 [facility] Laboratory - Hematology and Cell countsOrdered By: Amairani Sheth on 10-06-2022 Erythrocyte distribution width (RBC) [Entitic vol] 41.2 fL 35.1-43.9 [facility] Erythrocyte distribution width (RBC) [Ratio] 19.5 % 11.6-14.6 [facility] Immature granulocytes/100 WBC (Bld) 0.800 % 0.0-0.9 [facility] Comment on above: IG% - Immature Granu locytes (promyelocytes, myelocytes and metamyelocytes) > 1% indicates that a LEFT SHIFT is Present. MCH (RBC) [Entitic mass] 20.5 pg 27.0-32.0 [facility] Nucleated RBC/100 WBC (Bld) [Ratio] 0 % 0-5 [facility] MCHC Auto (RBC) [Mass/Vol]Or dered By: Amairani Sheth on 10-06-2022 MCHC (RBC) [Mass/Vol] 31.2 g/dL 32-36 [facility] No Panel InformationOrdered By: Amairani Sheth on 10-06-2022 Anti-Nuclear Antibody Screen Negative Negative [facility] Comment on above: Performed at: [address] [id number] Director: Jonatan Tsai PhD, Phone: [phone] Estimated GFR (MDRD) Amer 70 mL/min >60 [facility] Comment on above: GFR Calc Estimated GFR (MDRD) Non-Af Amer 58 mL/min >60 [facility] Comment on above: Non- GFR Calc Hepatitis B Surface Antigen Non-Reactive Nonreactive [facility] Hepatitis C Antibody Non-Reactive Nonreactive [facility] Comment on above: Non Reactive: < 0.8 Equivocal: >/= 0.8 to < 1.0 Reactive: >/= 1.0The CDC recommends that a reactive/equivocal HCV antibody result be followed up by the HCV Nucleic Acid Amplificationtest ([id number]) Platelets bldOrdered By: Verna Sheth on 05-24-2023 Platelets (Bld) [#/Vol] 265 10*3/uL 150-450 [facility] Serum cyclic citrullinated p eptide IgG antibody assay (units/volume)Ordered By: Amairani Sheth on 10-06-2022 Cyclic citrullinated peptide IgG Qn 6 units 0-19 [facility] Comment on above: Negative <20 Weak po sitive 20 - 39 Moderate positive 40 - 59 Strong positive >59Performed at: [address] [id number] Director: Jonatan Tsai PhD, Phone: [phone] Serum hepatitis B virus surf aminata antibody IgG detectionOrdered By: Amairani Sheth on 10-06-2022 HBV surface IgG Ql (S) Non-Reactive [facility] Comment on above: Non Reactive: Incons istent with immunity less than <10 mIU/mL Reactive: Consistent with immunity greater than or equal to 10 mIU/mL Serum or plasma C reactive p rotein measurement (mass/volume)Ordered By: Amairani Sheth on 10-06-2022 CRP [Mass/Vol] mg/L 0.0-3.0 [facility] Comment on above: C-Reactive Protein ( CRP) provides useful information for thediagnosis, therapy and monitoring of inflammatory processesand associated diseases. For the evaluation of Relative Riskfor Cardiovascular Disease, a High Sensitivity CRP (HSCRP)should be ordered. Serum or plasma albumin marcus urement (mass/volume)Ordered By: Amairani Sheth on 10-06-2022 Albumin [Mass/Vol] 3.9 g/dL 3.2-5.0 [facility] Serum or plasma albumin/glob ulin mass ratioOrdered By: Amairani Sheth on 10-06-2022 Albumin/Globulin [Mass ratio] 1.2 {ratio} 0.9-2.4 [facility] Serum or plasma calcium marcus urement (mass/volume)Ordered By: Amairani Sheth on 10-06-2022 Calcium [Mass/Vol] 9.0 mg/dL 8.5-10.1 [facility] Serum or plasma creatinine m easurement (mass/volume)Ordered By: Amairani Sheth on 10-06-2022 Creatinine [Mass/Vol] 1.27 mg/dL 0.70-1.30 [facility] Comment on above: The validity of the calculated GFR & GFRAA in patients over 70 years has not been determined. Clinical correlation is essential. Serum or plasma urea nitroge n measurement (mass/volume)Ordered By: Amairani Sheth on 10-06-2022 Urea nitrogen [Mass/Vol] 24 mg/dL 7-18 [facility] Serum rheumatoid factor dete ctionOrdered By: Amairani Sheth on 10-06-2022 Rheumatoid factor Ql (S) < 10.0 IU/mL <15 [facility] Thin prep Papanicolaou smear with manual screeningOrdered By: [facility] Domenic on 10-06-2022 Thin prep Papanicolaou smear with manual screening 29 U/L 15-37 [facility] Thin prep Papanicolaou smear with manual screening 10 5-15 [facility] Vital Signs Date Time Vital Sign Value Performing Clinician Faci lity 12-09-2023 16:08-0400 Body temperature 96.98 [degF] DR MODESTA NAIR MD [facility] 12-09-2023 16:08-0400 Diastolic Blood Pressure Non-Invasive 80 mm[Hg] DR MODESTA NAIR MD [facility] 12-09-2023 16:08-0400 Heart rate 73 /min DR MODESTA NAIR MD [facility] 12-09-2023 16:08-0400 Respiratory rate 18 /min DR MODESTA NAIR MD [facility] 12-09-2023 16:08-0400 Systolic Blood Pressure Non-Invasive 153 mm[Hg] DR MODESTA NAIR MD [facility] 07-31-2023 18:40-0400 Body temperature 96.8 [degF] MONICA KAY DO [facility] 07-31-2023 18:40-0400 Diastolic Blood Pressure Non-Invasive 91 mm[Hg] MONICA REICHFIELD DO [facility] 07-31-2023 18:40-0400 Heart rate 78 /min MONICA REICHFIELD DO [facility] 07-31-2023 18:40-0400 Respiratory rate 12 /min MONICA REICHFIELD DO [facility] 07-31-2023 18:40-0400 Systolic Blood Pressure Non-Invasive 153 mm[Hg] MONICA REICHFIELD DO [facility] 07-10-2022 10:19-0500 Body temperature 97.7 [degF] CHEYANNE JORGENSEN MD [facility] 07-10-2022 10:19-0500 Diastolic Blood Pressure Non-Invasive 82 1 CHEYANNE JORGENSEN MD [facility] 07-10-2022 10:19-0500 Heart rate 75 /min CHEYANNE JORGENSEN MD [facility] 07-10-2022 10:19-0500 Respiratory rate 18 /min CHEYANNE JORGENSEN MD [facility] 07-10-2022 10:19-0500 Systolic Blood Pressure Non-Invasive 157 1 CHEYANNE JORGENSEN MD [facility] Encounters Encounter Date Encounter Type Care Provider Facility Start: 02-13-2025 End: 02-13-2025 ambulatory Lena Correa SL[employer] PR[employer] OPERATOR Facility:[facility] Start: 11-19-2024 End: 11-19-2024 ambulatory Lena Correa [employer] PR[employer] OPERATOR-C Work Phone: [facility] Start: 11-19-2024 End: 11-19-[address] Amairani Sheth MD [facility] [place] Work Phone: Start: 11-19-2024 End: 11-19-2024 ambulatory Lena Correa NP Facility:[facility] Start: 08-29-2024 End: 08-29-[address] Amairani Sheth MD [facility] [place] Work Phone: Start: 08-29-2024 End: 08-29-2024 ambulatory [facility] Facility:[facility] Start: 06-06-2024 End: 06-06-2024 ambulatory [facility] Facility:[facility] Start: 04-13-2024 End: 04-13-2024 ambulatory [facility] Facility:[facility] Start: 03-20-2024 End: 03-20-2024 ambulatory Lena Correa SLUG PRESS OPERATOR Facility:[facility] Start: 02-07-2024 End: 02-29-2024 ambulatory LENA CORREA [employer]ARD [employer] Facility:[facility] Start: 02-07-2024 End: 02-29-2024 Physical therapy management LENA CORREA GUARD [employer] [facility] Start: 01-23-2024 End: 01-23-2024 ambulatory LENA CORREA GUARD [employer] Facility:[facility] Start: 01-23-2024 End: 01-23-2024 Patient encounter procedure LENA CORREA GUARD [employer] [facility] Start: 12-09-2023 End: 12-09-2023 Emergency department patient visit DR MODESTA NAIR MD [facility] Start: 07-31-2023 End: 07-31-2023 Emergency department patient visit MONICA KAY DO [facility] Start: 06-07-2023 End: 06-07-2023 ambulatory [facility] Work Phone: Start: 06-07-2023 End: 06-07-2023 Patient encounter procedure [facility] Work Phone: Start: 05-26-2023 End: 05-30-2023 ambulatory [facility] GUARD [employer] Facility:[facility] Start: 05-26-2023 End: 05-30-2023 Outreach Lab [facility] GUARD [employer] [facility] Start: 02-22-2023 End: 02-22-2023 ambulatory [facility] Work Phone: Start: 02-22-2023 End: 02-22-2023 Patient encounter procedure [facility] Work Phone: Start: 11-26-2022 End: 11-26-2022 ambulatory [facility] Work Phone: Start: 11-26-2022 End: 11-26-2022 Patient encounter procedure [facility] Work Phone: Start: 10-06-2022 End: 10-06-2022 ambulatory [facility] Work Phone: Start: 10-06-2022 End: 10-06-2022 Patient encounter procedure [facility] Work Phone: Start: 07-10-2022 End: 07-10-2022 Emergency department patient visit CHEYANNE JORGENSEN MD [facility] Start: 03-04-2022 End: 03-04-2022 Patient encounter procedure LENA CORREA GUARD [employer] [facility] Procedures Date Procedure Procedure Detail Performing Clinician Infectious disease (disorder) LENA CORREA GUARD [employer] Comment on above: Pt reports 2 foreign infections in the left juliana from [place] Kidney stone (disorder) KERLINE CORREA GUARD [employer] Methicillin resistan t Staphylococcus aureus (organism) LENA CORREA GUARD [employer] Pneumonia (disorder) JOHN CORREA GUARD [employer] Immunizations Immunization Date Immunization Notes Care Provider [facility] 03-04-2023 influenza, high dose seasonal, preservative-free; Translations: [Fluad Quadrivalent PF ] MIGUELINA BRYANT GUARD [employer] [facility] Payers Date Payer Category Payer Self-pay 2023 Medicare [id number] 2023 Private Health Insurance [facility] [id number] 1940 Unknown [id number] 2.16.8 [id number] 1940 Unknown [id number] 2.16.8 [id number] 1939 Unknown [id number] 2.16.8 [id number] 1939 Unknown [id number] 2.16.8 [id number] 1939 Unknown [id number] 2.16.8 [id number] Unknown [id number] 2.16.8 [id number] Unknown [id number] 2.16.8 [id number] Unknown [id number] 2.16.8 [id number] Unknown [id number] 2.16.8 [id number] Unknown [id number] 2.16.8 [id number] Unknown [id number] 2.16.8 [id number] Social History Date Type Detail Facility Start: 02-17-2022 Tobacco smoking status Never s moked tobacco (finding) [facility] [place] Sex Assigned At Sex [facility] Start: 1940 Sex Assigned At Male [facility] Work Phone: Functional Status Date Assessment Result Facility 02-07-2024 Functional Status Home Living Ad ditional Information OBJECTIVE Posture: forward head and trunk posture Gait: amb with no AD and slight hip ER Transfers: WFL, rolling over on mat table with report of slight pain Sensation: no abnormalities with light touch grossly Palpation: no pain to report with general palpation at lumbar AROM: lumbar flexion mild restriction with no pain, rotation to L Functional assessment: bridge performed with hamstring cramp LLE Pelvis: symmetrical [facility] 12-09-2023 Functional Status ID band on, Call device within reach, Bed in low position, Wheels locked, Phone within reach, personal items within reach, Safety level maintained [facility] 07-31-2023 Functional Status Ambulation in [facility] 07-10-2022 Functional Status Independent [facility] 07-10-2022 Functional Status Standard Safet y ID band on, Call device within reach, Bed in low position, Wheels locked, Upper/Half-Length side-rails up, Phone within reach, personal items within reach, Assistive devices within reach, Toileting device within reach, Bedside Cart Locked, Visitor at bedside, Safety level maintained [facility] Mental Status Date Assessment Result Facility 12-09-2023 Mental Status Oriented x 4 [facility] 07-31-2023 Mental Status Orientation Oriented x 4 [facility] 07-31-2023 Mental Status [facility] 07-10-2022 Mental Status Orientation Oriented x 4 [facility] 07-10-2022 Mental Status [facility] Clinical Notes 03-04-2022 to 01-04-2024 LaboratoryLaboratoryLaboratoryLaboratory Note Date & Type Note Facility 01-04-2024 Evaluation + Plan note Future Scheduled TestsProstate Specific Antigen 01/04/24A1C Hemoglobin 03/04/23Lipid Profile 03/04/23Albumin/Creatinine Ratio, Random Urine 03/04/23 [facility] 12-09-2023 Hospital Discharge instructions Patient Education 12/09/2023 16:21:22 Back Sprain/Strain Back Sprain or Strain Injury to the muscles (strain) or ligaments (sprain) around the spine can be troubling. Injury may occur after a sudden forceful twisting or bending force such as in a car accident, after a simple awkward movement, or after lifting something heavy with poor body positioning. In any case, muscle spasm is often present and adds to the pain. Thankfully, most people feel better in 1 to 2 weeks, and most of the rest in 1 to 2 months. Most people can remain active. Unless you had a forceful or traumatic physical injury such as a car accident or fall, X-rays may not be ordered for the first evaluation of a back sprain or strain. If pain continues and does not respond to medical treatment, your healthcare provider may then order X-rays and other tests. Home care The following guidelines will help you care for your injury at home: When in bed, try to find a comfortable position. A firm mattress is best. Try lying flat on your back with pillows under your knees. You can also try lying on your side with your knees bent up toward your chest and a pillow between your knees. Don't sit for long periods. Try not to take long car rides or take other trips that have you sitting for a long time. This puts more stress on the lower back than standing or walking. During the first 24 to 72 hours after an injury or flare-up, apply an ice pack to the painful area for 20 minutes. Then remove it for 20 minutes. Do this for 60 to 90 minutes, or several times a day. This will reduce swelling and pain. Be sure to wrap the ice pack in a thin towel or plastic to protect your skin. You can start with ice, then switch to heat. Heat from a hot shower, hot bath, or heating pad reduces pain and works well for muscle spasms. Put heat on the painful area for 20 minutes, then remove for 20 minutes. Do this for 60 to 90 minutes, or several times a day. Do not use a heating pad while sleeping. It can burn the skin. You can alternate the ice and heat. Talk with your healthcare provider to find out the best treatment or therapy for your back pain. Therapeutic massage will help relax the back muscles without stretching them. Be aware of safe lifting methods. Do not lift anything over 15 pounds until all of the pain is gone. Medicines Talk to your healthcare provider before using medicines, especially if you have other health problems or are taking other medicines. You may use acetaminophen or ibuprofen to control pain, unless another pain medicine was prescribed. If you have chronic conditions like diabetes, liver or kidney disease, stomach ulcers, or gastrointestinal bleeding, or are taking blood-thinner medicines, talk with your doctor before taking any medicines. Be careful if you are given prescription medicines, narcotics, or medicine for muscle spasm. They can cause drowsiness, and affect your coordination, reflexes, and judgment. Do not drive or operate heavy machinery when taking these types of medicines. Only take pain medicine as prescribed by your healthcare provider. Follow-up care Follow up with your healthcare provider, or as advised. You may need physical therapy or more tests if your symptoms get worse. If you had X-rays your healthcare provider may be checking for any broken bones, breaks, or fractures. Bruises and sprains can sometimes hurt as much as a fracture. These injuries can take time to heal completely. If your symptoms don t improve or they get worse, talk with your healthcare provider. You may need a repeat X-ray or other tests. Call 911 Call 911 if any of the following occur: Trouble breathing Confused Very drowsy or trouble awakening Fainting or loss of consciousness Rapid or very slow heart rate Loss of bowel or bladder control When to seek medical advice Call your healthcare provider right away if any of the following occur: Pain gets worse or spreads to your arms or legs Weakness or numbness in one or both arms or legs Numbness in the groin or genital area [phone] [employer]. [address] [place] [address], [place] [address]. All rights reserved. This information is not intended as a substitute for professional medical care. Always follow your healthcare professional's instructions. Follow Up Care 12/09/2023 16:00:35 With:LENA CORREA Address: [address] [place] [phone] When:2-4 days [facility] 12-09-2023 Nurse Progress note Lidocaine patch applied prior to patient discharge. Pt instructed to remove lidocaine patch at 0430. Digitally Signed by Polly George RN on 12/09/2023 04:35 PM [facility] 12-09-2023 Emergency department Discharge summary Discharge Instructions Thank you for allowing [facility] to assist you with your healthcare needs. The following is important discharge information regarding your hospital visit. Diagnosis from Today's Visit Lumbar strain What to Do Next Instructions from Your Care Team No qualifying data available. Post Acute Orders No qualifying data available. You Need to Schedule the Following Appointments Follow Up with LENA CORREA When:Within 2-4 days Where:[address] [place] [address] [phone] Allergies NKA Medications Please ask your primary doctor or pharmacist before taking any other medication not listed, including over the counter drugs, herbal medications, vitamins and or supplements as they may interact with your home medications. What How Much When Why Instructions Last Dose New lidocaine topical (lidocaine 5% topical patch) 1 patch(es) Topical Once a day Duration: 10 Days remove patches after 12 hours Printed Prescription Unchanged amLODIPine (amLODIPine 5 mg oral tablet) [...] Every day Fatigue Duration: 90 Days Unchanged Misc Medication See instructions 1 Tablespoons daily of Apple Cider Vinegar Unchanged multivitamin (Multivitamin) 1 tab(s) by mouth Every day Unchanged multivitamin (Super B Complex oral tablet) 1 tab(s) by mouth Every day Unchanged pantoprazole (pantoprazole 40 mg oral enteric coated tablet) 1 tab(s) by mouth Once a day before a meal Duration: 90 Days Unchanged tamsulosin (tamsulosin 0.4 mg oral capsule) 1 cap by mouth Once a day Duration: 90 Days Please take this list to your next doctor s visit. Bring all medications you take, including over the counter medications, herbals and other supplements with you to your doctor s visit. Patients and families are reminded to discard old lists and to update any records with all medication providers or retail pharmacies. Education Materials Back Sprain or Strain Injury to the muscles (strain) or ligaments (sprain) around the spine can be troubling. Injury may occur after a sudden forceful twisting or bending force such as in a car accident, after a simple awkward movement, or after lifting something heavy with poor body positioning. In any case, muscle spasm is often present and adds to the pain. Thankfully, most people feel better in 1 to 2 weeks, and most of the rest in 1 to 2 months. Most people can remain active. Unless you had a forceful or traumatic physical injury such as a car accident or fall, X-rays may not be ordered for the first evaluation of a back sprain or strain. If pain continues and does not respond to medical treatment, your healthcare provider may then order X-rays and other tests. Home care The following guidelines will help you care for your injury at home: When in bed, try to find a comfortable position. A firm mattress is best. Try lying flat on your back with pillows under your knees. You can also try lying on your side with your knees bent up toward your chest and a pillow between your knees. Don't sit for long periods. Try not to take long car rides or take other trips that have you sitting for a long time. This puts more stress on the lower back than standing or walking. During the first 24 to 72 hours after an injury or flare-up, apply an ice pack to the painful area for 20 minutes. Then remove it for 20 minutes. Do this for 60 to 90 minutes, or several times a day. This will reduce swelling and pain. Be sure to wrap the ice pack in a thin towel or plastic to protect your skin. You can start with ice, then switch to heat. Heat from a hot shower, hot bath, or heating pad reduces pain and works well for muscle spasms. Put heat on the painful area for 20 minutes, then remove for 20 minutes. Do this for 60 to 90 minutes, or several times a day. Do not use a heating pad while sleeping. It can burn the skin. You can alternate the ice and heat. Talk with your healthcare provider to find out the best treatment or therapy for your back pain. Therapeutic massage will help relax the back muscles without stretching them. Be aware of safe lifting methods. Do not lift anything over 15 pounds until all of the pain is gone. Medicines Talk to your healthcare provider before using medicines, especially if you have other health problems or are taking other medicines. You may use acetaminophen or ibuprofen to control pain, unless another pain medicine was prescribed. If you have chronic conditions like diabetes, liver or kidney disease, stomach ulcers, or gastrointestinal bleeding, or are taking blood-thinner medicines, talk with your doctor before taking any medicines. Be careful if you are given prescription medicines, narcotics, or medicine for muscle spasm. They can cause drowsiness, and affect your coordination, reflexes, and judgment. Do not drive or operate heavy machinery when taking these types of medicines. Only take pain medicine as prescribed by your healthcare provider. Follow-up care Follow up with your healthcare provider, or as advised. You may need physical therapy or more tests if your symptoms get worse. If you had X-rays your healthcare provider may be checking for any broken bones, breaks, or fractures. Bruises and sprains can sometimes hurt as much as a fracture. These injuries can take time to heal completely. If your symptoms don t improve or they get worse, talk with your healthcare provider. You may need a repeat X-ray or other tests. Call 911 Call 911 if any of the following occur: Trouble breathing Confused Very drowsy or trouble awakening Fainting or loss of consciousness Rapid or very slow heart rate Loss of bowel or bladder control When to seek medical advice Call your healthcare provider right away if any of the following occur: Pain gets worse or spreads to your arms or legs Weakness or numbness in one or both arms or legs Numbness in the groin or genital area [phone] [employer]. [address] [place] [address], [place] [address]. All rights reserved. This information is not intended as a substitute for professional medical care. Always follow your healthcare professional's instructions. Additional Information VACCINATE! IT SAVES LIVES! Members of the community who have not yet received the COVID-19 vaccine and would like to receive it can visit one of [facility] vaccine clinics. There are many vaccine clinic locations within the [facility]. For locations and available times, please visit [email or web address] It is important to note that some COVID mobile vaccine clinics are held outdoors and may be canceled in rainy or stormy conditions. To learn more about pediatric vaccinations (ages 5-11), we invite you to visit the [facility] webpage. https://www.[employer].org/p ages/9021-Zcdmd-Orolykaqtqx-Freq fdpqnv-Vamui-Vsmgzpafy.html To learn more about the COVID-19 vaccine, we invite you to visit the CDC website for a list of frequently asked questions. https://www.cdc.gov/coronavirus/ 2019-ncov/vaccines/faq.html [facility] Patient Portal Access Instructions: Stay connected with your healthcare team and access your personal medical information anytime with the [facility] Patient Portal. If you would like a full copy of your medical records please contact the [facility] Medical Records Department Tuesday through Tuesday between 8a.m. and 4:30p.m. Please follow the directions below to access the portal: 1.Access the email account you provided upon registration to the hospital.2.Look for an invitation email from [facility].3.Open the email and access the invitation link: Accept Invitation to [facility].Fill in the required reis to create your account. Sign into [email or web address] with your username and password that you [...] you will allow to register on the [employer] Patient Portal for access to your information. You can also access the [employer] Patient Portal on the [employer]. Simply click on Health Records under Health Data and then click on the [employer] logo. HOW TO SAFELY DISPOSE OF PRESCRIPTION [...] Call your local pharmacy or go to [email or web address] to find one close to you.3.Make use of household items: Use cat litter or old coffee grounds to dispose medications if other options are not available. Mix your drugs with these household products, seal them in an airtight container and throw it into the garbage. Call [facility]: [phone] to be sure your drugs can be [...] a CHART COPY Signatures Patient Education Materials Back Sprain/Strain Medication Leaflets My discharge plan and instructions have been reviewed and explained to me and I,ULISSES JOSE R understand my current condition and have read and understand these discharge instructions. I have received a written copy of the plan/instructions. If I have questions, I am aware that I should contact my doctor. Patient/Card Setter Signature: Date/Time: Relationship to Patient: Witness Name/Signature: Date/Time: [facility] 07-31-2023 Hospital Discharge instructions Patient Education 07/31/2023 19:55:01 Back Contusion Back Contusion You have a contusion to your back. A contusion is also called a bruise. There is swelling and some bleeding under the skin. The skin may be purplish. You may have muscle aching and stiffness in the area of the bruise. There are no broken bones. Contusions heal on their own, without further treatment. However, pain and skin discoloration may take weeks to months to go away. Home care Rest. Avoid heavy lifting, strenuous exertion, or any activity that causes pain. Ice the area to reduce pain and swelling. Put ice cubes in a plastic bag or use a cold pack. (Wrap the cold source in a thin towel. Don't place it directly on your skin.) Ice the injured area for 20 minutes every 1 to 2 hours the first day. Continue with ice packs 3 to 4 times a day for the next 2 days, then as needed for the relief of pain and swelling. Take any prescribed pain medicine. If none was prescribed, take acetaminophen, ibuprofen, or naproxen to control pain, unless you have other medical conditions that prevent taking these medicines. If you are unsure about medicines, ask your healthcare provider before you leave the hospital. Follow-up care Follow up with your healthcare provider, or as directed. Call if you are not better in 1 to 2 weeks. When to seek medical advice Call your healthcare provider for any of the following: New or worsening pain Increased swelling around the bruise Pain spreads to one or both legs Weakness or numbness in one or both legs Loss of bowel or bladder control Numbness in the groin or genital area Fever of 100.4 F (38 C) or higher, or as directed by your healthcare provider [phone] [employer]. [address] [place] [address], [place] [address]. All rights reserved. This information is not intended as a substitute for professional medical care. Always follow your healthcare professional's instructions. Follow Up Care 07/31/2023 18:34:04 With:LENA CORREA Address: [address] [place] [phone] When:2-4 days [facility] 07-31-2023 Note Discharge Instructions Thank you for allowing [facility] to assist you with your healthcare needs. The following is important discharge information regarding your hospital visit. Diagnosis from Today's Visit Back pain Fall Traumatic hematoma of lower back What to Do Next Instructions from Your Care Team No qualifying data available. Post Acute Orders No qualifying data available. You Need to Schedule the Following Appointments Follow Up with LENA CORREA When Within 2-4 days Where: [address] [place] [address] [phone] Allergies NKA Medications Please ask your primary doctor or pharmacist before taking any other medication not listed, including over the counter drugs, herbal medications, vitamins and or supplements as they may interact with your home medications. What How Much When Why Instructions Last Dose Unchanged amLODIPine (amLODIPine 5 mg oral tablet) [...] Every day Fatigue Duration: 90 Days Unchanged Misc Medication See instructions 1 Tablespoons daily of Apple Cider Vinegar Unchanged multivitamin (Multivitamin) 1 tab(s) by mouth Every day Unchanged multivitamin (Super B Complex oral tablet) 1 tab(s) by mouth Every day Unchanged pantoprazole (pantoprazole 40 mg oral enteric coated tablet) 1 tab(s) by mouth Once a day before a meal Duration: 90 Days Unchanged tamsulosin (tamsulosin 0.4 mg oral capsule) 1 cap by mouth Once a day Duration: 90 Days Please take this list to your next doctor s visit. Bring all medications you take, including over the counter medications, herbals and other supplements with you to your doctor s visit. Patients and families are reminded to discard old lists and to update any records with all medication providers or retail pharmacies. Education Materials Back Contusion You have a contusion to your back. A contusion is also called a bruise. There is swelling and some bleeding under the skin. The skin may be purplish. You may have muscle aching and stiffness in the area of the bruise. There are no broken bones. Contusions heal on their own, without further treatment. However, pain and skin discoloration may take weeks to months to go away. Home care Rest. Avoid heavy lifting, strenuous exertion, or any activity that causes pain. Ice the area to reduce pain and swelling. Put ice cubes in a plastic bag or use a cold pack. (Wrap the cold source in a thin towel. Don't place it directly on your skin.) Ice the injured area for 20 minutes every 1 to 2 hours the first day. Continue with ice packs 3 to 4 times a day for the next 2 days, then as needed for the relief of pain and swelling. Take any prescribed pain medicine. If none was prescribed, take acetaminophen, ibuprofen, or naproxen to control pain, unless you have other medical conditions that prevent taking these medicines. If you are unsure about medicines, ask your healthcare provider before you leave the hospital. Follow-up care Follow up with your healthcare provider, or as directed. Call if you are not better in 1 to 2 weeks. When to seek medical advice Call your healthcare provider for any of the following: New or worsening pain Increased swelling around the bruise Pain spreads to one or both legs Weakness or numbness in one or both legs Loss of bowel or bladder control Numbness in the groin or genital area Fever of 100.4 F (38 C) or higher, or as directed by your healthcare provider [phone] [employer]. [address] [place] [address]. All rights reserved. This information is not intended as a substitute for professional medical care. Always follow your healthcare professional's instructions. Additional Information VACCINATE! IT SAVES LIVES! Members of the community who have not yet received the COVID-19 vaccine and would like to receive it can visit one of [facility] vaccine clinics. There are many vaccine clinic locations within the [facility]. For locations and available times, please visit [email or web address] [email or web address] It is important to note that some COVID mobile vaccine clinics are held outdoors and may be canceled in rainy or stormy conditions. To learn more about pediatric vaccinations (ages 5-11), we invite you to visit the [facility] webpage. https://www.[facility].org/p ages/4703-Rmase-Joewbckplmg-Freq aovpdk-Jmgkr-Jobshvgrl.html To learn more about the COVID-19 vaccine, we invite you to visit the CDC website for a list of frequently asked questions. https://www.cdc.gov/coronavirus/ 2019-ncov/vaccines/faq.html [facility] Patient [facility] Access Instructions: Stay connected with your healthcare team and access your personal medical information anytime with the [facility] Patient Portal. If you would like a full copy of your medical records please contact the [facility] Medical Records Department Tuesday through Tuesday between 8a.m. and 4:30p.m. Please follow the directions below to access the portal: 1.Access the email account you provided upon registration to the [facility].2.Look for an invitation email from [facility].3.Open the email and access the invitation link: Accept Invitation to [facility].Fill in the required reis to create your account. Sign into [email or web address] with your username and password that you [...] you will allow to register on the [employer] Patient Portal for access to your information. You can also access the [employer] Patient Portal on the [employer]. Simply click on Health Records under Health Data and then click on the [employer] logo. HOW TO SAFELY DISPOSE OF PRESCRIPTION [...] Call your local pharmacy or go to [email or web address] Systems/1E2De3x to find one close to you.3.Make use of household items: Use cat litter or old coffee grounds to dispose medications if other options are not available. Mix your drugs with these household products, seal them in an airtight container and throw it into the garbage. Call [facility]: [phone] to be sure your drugs can be [...] a CHART COPY Signatures Patient Education Materials Back Contusion Medication Leaflets My discharge plan and instructions have been reviewed and explained to me and I,JOSE R GTZ understand my current condition and have read and understand these discharge instructions. I have received a written copy of the plan/instructions. If I have questions, I am aware that I should contact my doctor. Patient/Card Setter Signature: Date/Time: Relationship to Patient: Witness Name/Signature: Date/Time: [facility] 07-31-2023 Note ORIGINAL EXAMINATION: CT OF THE LUMBAR SPINE WITHOUT CONTRAST 07/31/2023 TECHNIQUE: CT of the lumbar spine was performed without the administration of intravenous contrast. Multiplanar reformatted images are provided for review. Adjustment of mA and/or kV according to patient size was utilized. Automated exposure control, iterative reconstruction, and/or weight based adjustment of the mA/kV was utilized to reduce the radiation dose to as low as reasonably achievable. COMPARISON: None HISTORY: ORDERING SYSTEM PROVIDED HISTORY: Reason for Exam: fell onto a hard plastic object in lower back area. pain and swelling in lower back INJURY FINDINGS: BONES/ALIGNMENT: Trace grade 1 anterolisthesis of L4 on L5. The vertebral body heights are maintained. No osseous destructive lesion is seen. Sclerotic focus in L5 vertebral body likely compliance representative dealer of enostosis. Grade 1 anterolisthesis of L4 on L5 without associated pars defect. DEGENERATIVE CHANGES: Multilevel degenerative changes including endplate osteophyte formation disc space height loss most pronounced at L5-S1. Varying levels of foraminal stenosis. Degenerative disc disease at L3-L4 causes at least moderate spinal canal stenosis. Circumferential bulge, facet and ligamentum flavum hypertrophy causes at least moderate to severe spinal canal stenosis at L4-L5. SOFT TISSUES/RETROPERITONEUM: There is a large soft tissue fluid collection measuring at least 3.2 x 7.7 x 11.2 cm (AP, TR, CC dimensions) beginning at the level of at least L3 and extending to at least L2 in the midline subcutaneous fat. This may extend off the edge of the field of view. Hazy infiltrative changes are noted more inferiorly as well. No radiopaque retained foreign body. No locules of air. Greater than simple density round circumscribed exophytic structure arising off the superior pole the left kidney measuring 1.6 x 1.6 cm in the axial plane and 1.7 cm cranio caudally with internal density of 25 Hounsfield units. IMPRESSION: No acute fracture or traumatic malalignment. Large soft tissue hematoma and contusion, as above. No radiopaque retained foreign body. Indeterminate density left upper pole renal structure. Correlate with any prior imaging. Further investigation may be warranted. I have personally reviewed the images of this examination and agree with the resident's findings and interpretation. Interpreted by: Woodrow Allen Preliminary Report By: Clifford Bazan Electronically signed By Woodrow Allen Dictated Date: 07/31/2023 7:33:42 PM Prelim Date: 07/31/2023 7:41:01 PM Sign Date: 07/31/2023 7:50:02 PM Ordering Provider: MARITO LINDER [facility] 05-26-2023 SARS-CoV-2 (COVID-19) RNA JL+probe Ql (Nph) Negative *NA* (05/26/23 11:28 AM) AO Auto Urine SS 03-04-2023 Evaluation + Plan note Future Scheduled [id number] Hemoglobin 03/04/23Lipid Profile 03/04/23Lipid Profile 08/27/22Albumin/Creatinine Ratio, Random Urine 03/04/23Microalbumin Level Urine 08/27/22Complete Metabolic Panel 08/27/22 [facility] 03-04-2023 Evaluation + Plan note Future Scheduled [id number] Hemoglobin 03/04/23Lipid Profile 03/04/23Albumin/Creatinine Ratio, Random Urine 03/04/23 [facility] 07-10-2022 Hospital Discharge instructions Patient Education 07/10/2022 11:18:38 Osteoarthritis Osteoarthritis [...] joint or bear weight on the joint 1350-0995 The [employer]. [address] [place] [address]. All rights reserved. This information is not [...] alternate ice and heat. You may use nhby-waf-amqzqkc pain medicine to control pain, unless another [...] to put weight on the injured side 0523-1463 [employer]. [address] [place] [address], [place] [address]. All rights reserved. This information is not intended as a substitute for professional medical care. Always follow your healthcare professional's instructions. Follow Up Care 07/10/2022 10:10:22 With:ADAM COLE MD Address: [address] [place] [address] [address] [place] [address] [phone] When:2-4 days [facility] 07-10-2022 Emergency department Discharge summary Discharge Instructions Thank you for allowing [facility] to assist you with your healthcare needs. [...] COLE MD When Within 2-4 days Where: [address] [place] [address] [place] [address] [phone] Allergies NKA Medications Please ask your primary doctor or pharmacist before taking any other medication not listed, including over the counter drugs, herbal medications, vitamins and or supplements as they may interact with your home medications. What How Much When Why Instructions Last Dose New acetaminophen-hydrocodone ([place] 325- 5 mg oral tablet) 1 tab(s) by mouth Every 6 hours as needed for for pain Right hip pain Duration: 3 Days Pickup at [facility]/pharmacy #[id number] New predniSONE (predniSONE 20 mg oral tablet) 2 tab(s) by mouth Once a day with a meal Right hip pain Duration: 6 Days Pickup at [facility]/pharmacy #[id number] Unchanged amLODIPine (amLODIPine 5 mg oral [...] a day Duration: 90 Days Pharmacy Information [facility]/pharmacy #[id number]: [address] [place], [place] [phone] Please take this list to your next doctor s visit. Bring all medications you take, including over the counter medications, herbals and other supplements with you to your doctor s visit. Patients and families are reminded to discard old lists and to update any records with all medication providers or retail pharmacies. Medication Leaflets prednisone (PRED kayy Rodriguez What is the most important information I [...] may report side effects to FDA at 1-309-ELJ-0212. What other drugs will affect prednisone? Sometimes [...] may affect prednisone. This includes prescription and rskg-gue-knmybkz medicines, vitamins, and herbal products. Not all [...] to ensure that the information provided by [employer]. ('Mult[employer]') is accurate, up-to-date, and complete, but no guarantee is made to that effect. Drug information contained herein may be time sensitive. [employer] information has been compiled for use by healthcare practitioners and consumers in the [place] and therefore [employer] does not warrant that uses outside of the [place] are appropriate, unless specifically indicated otherwise. [employer]'s drug information does not endorse drugs, diagnose patients or recommend therapy. [employer] drug information is an informational resource designed [...] effective or appropriate for any given patient. [facility] does not assume any responsibility for any aspect of healthcare administered with the aid of information [facility] provides. The information contained herein is not intended to cover all possible uses, directions, precautions, warnings, drug interactions, allergic reactions, or adverse effects. If you have questions about the drugs you are taking, check with your doctor, nurse or pharmacist. Copyright 5802-9192 [facility] [employer] Association[employer]. Version: 02.13. Revision Date: 08/10/2018. acetaminophen and hydrocodone (a SEET a MIN oh fen and ruperto droe KOE done) Hycet, Lorcet, [place], Verdrocet, Vicodin, Xodol, Zamicet What is the [...] may report side effects to FDA at 8-472-KOA-5728. What other drugs will affect acetaminophen and [...] affect acetaminophen and hydrocodone, including prescription and taii-jjp-enktxzc medicines, vitamins, and herbal products. Not all [...] to ensure that the information provided by [employer]. ('[employer]') is accurate, up-to-date, and complete, but no guarantee is made to that effect. Drug information contained herein may be time sensitive. [employer] information has been compiled for use by healthcare practitioners and consumers in the [place] and therefore [employer] does not warrant that uses outside of the [place] are appropriate, unless specifically indicated otherwise. [employer]'s drug information does not endorse drugs, diagnose patients or recommend therapy. [employer] drug information is an informational resource designed [...] effective or appropriate for any given patient. [facility] does not assume any responsibility for any aspect of healthcare administered with the aid of information [facility] provides. The information contained herein is not intended to cover all possible uses, directions, precautions, warnings, drug interactions, allergic reactions, or adverse effects. If you have questions about the drugs you are taking, check with your doctor, nurse or pharmacist. Copyright 7008-6234 [facility]. Version: 16.03. Revision Date: 06/17/2020. Education Materials [...] joint or bear weight on the joint 6451-8552 [employer]. [address] [place] [address]. All rights reserved. This information is not [...] alternate ice and heat. You may use eeft-uhd-hctdzoj pain medicine to control pain, unless another [...] to put weight on the injured side 3637-7038 [employer]. [address] [place] [address]. All rights reserved. This information is not intended as a substitute for professional medical care. Always follow your healthcare professional's instructions. Additional Information VACCINATE! IT SAVES LIVES! Members of the community who have not yet received the COVID-19 vaccine and would like to receive it can visit one of [facility] vaccine clinics. There are many vaccine clinic locations within the [facility]. For locations and available times, please visit [email or web address] [email or web address] It is important to note that some COVID mobile vaccine clinics are held outdoors and may be canceled in rainy or stormy conditions. To learn more about pediatric vaccinations (ages 5-11), we invite you to visit the [facility] webpage. https://www.[email or web address].org/p ages/5593-Syxlk-Rxfqehngpfg-Freq duhkkl-Ewzah-Zrigfqksj.html To learn more about the COVID-19 vaccine, we invite you to visit the CDC website for a list of frequently asked questions. https://www.cdc.gov/coronavirus/ 2019-ncov/vaccines/faq.html [facility] Access Instructions: Stay connected with your healthcare team and access your personal medical information anytime with the [facility] Patient Portal. If you would like a full copy of your medical records please contact the [facility] Medical Records Department Tuesday through Tuesday between 8a.m. and 4:30p.m. Please follow the directions below to access the portal: 1.Access the email account you provided upon registration to the [facility].2.Look for an invitation email from [facility].3.Open the email and access the invitation link: Accept Invitation to [employer]4.Fill in the required reis to create your account. Sign into [email or web address] with your username and password that you [...] you will allow to register on the [employer] Patient Portal for access to your information. You can also access the [employer] Patient Portal on the [employer]. Simply click on Health Records under [employer] and then click on the [employer] logo. HOW TO SAFELY DISPOSE OF PRESCRIPTION [...] Call your local pharmacy or go to http://[email or web address]/[email or web address] to find one close to you.3.Make use of household items: Use cat litter or old coffee grounds to dispose medications if other options are not available. Mix your drugs with these household products, seal them in an airtight container and throw it into the garbage. Call [facility]: [phone] to be sure your drugs can be [...] aware that I should contact my doctor. Patient/Card Setter Signature: Date/Time: Relationship to Patient: Witness Name/Signature: Date/Time: [facility] 07-10-2022 Note ORIGINAL EXAMINATION: ONE XRAY VIEW [...] Sign Date: 07/10/2022 11:10:43 AM Ordering Provider: [facility] 07-10-2022 Note ORIGINAL EXAMINATION: ONE XRAY VIEW [...] Sign Date: 07/10/2022 11:10:43 AM Ordering Provider: [facility] 03-04-2022 Note ORIGINAL EXAMINATION: MRI OF [...] Sign Date: 03/04/2022 3:59:59 PM Ordering Provider: [facility] 03-04-2022 Note ORIGINAL EXAMINATION: MRI OF [...] Sign Date: 03/04/2022 3:59:59 PM Ordering Provider: LENA CORREA [facility] Evaluation + Plan note Future Scheduled [id number] Hemoglobin 08/27/22Complete Blood Count 08/27/22Lipid Profile 08/27/22Microalbumin Level Urine 08/27/22Complete Metabolic Panel 08/27/22 [facility] Evaluation note No assessment inform ation available [facility] Work Phone: Hospital course Narrative No data available for this section [facility] Hospital Discharge instructions No data available for this section [facility] Progress note No data available for this section [facility] Reason for referral (narrative) No reason for referral information available [facility] Work Phone: Chief Complaint and Reason for Visit Chief Complaint PAIN- COPY PCP Chief Complaint PAIN- COPY PCP PAIN- COPY PCP Chief Complaint Admit Date PAIN- COPY PCP August 29, 2024 10: 26am PAIN- COPY PCP November 19, 2024 10:39 am Summary Purpose Family History No Family History Records Found Advance Directives No Advanced Directives Records FoundNo Advanced Directives Records FoundNo Advanced Directives Records Found Additional Source Comments Care Team (unrecognized sect ion and content) Care Team Related Persons Name: ULISSESOctober Address: [address] [place], [place] [id number] Address: Temporary [address] [facility], [phone] Care Team Personnel Name: CHEYANNE JORGENSEN MD Position: ED Physician Member Role: ED Physician Address: Address: [facility] [address] Care Team Related Persons Name: ULISSESOctober Address: Home [address] [place], [place] [id number] Address: Temporary [address] [facility], [phone] Care Teams (unrecognized sec tion and content) Team Status: Active Member Role Status Dates Lena Correa SLUG PRESS OPERATOR, SLUG PRESS OPERATOR-C Primary Care Provider Activ e Team Status: Inactive Member Role Status Dates Lena Correa SLUG PRESS OPERATOR, SLUG PRESS OPERATOR-C Primary Care Provider Activ e Dr. Amairani Sheth MD Attending Provider, Referring Provider Active Team Status: Active Member Role Status Dates Lena Correa NP, SLUG PRESS OPERATOR-C Primary Care Provider Activ e Dr. Amairani Sheth MD Attending Provider, Referring Provider Active Team Status: Active Member Role/Relationship Status Dates Lena Correa SLUG PRESS OPERATOR, SLUG PRESS OPERATOR-C Primary Care Provider Activ e Team Status: Inactive Member Role/Relationship Status Dates Lena Correa SLUG PRESS OPERATOR, SLUG PRESS OPERATOR-C Primary Care Provider Activ e Start: August 29, 2024 End: August 29, 2024 Dr. Amairani Sheth MD Attending Provider Active Start: August 29, 2024 End: August 29, 2024 Dr. Amairani Sheth MD Referring Provider Active Start: August 29, 2024 End: August 29, 2024 Team Status: Inactive Member Role/Relationship Status Dates Lena Correa NP, SLUG PRESS OPERATOR-C Primary Care Provider Activ e Start: November 19, 2024 End: November 19, 2024 Dr. Amairani Sheth MD Attending Provider Active Start: November 19, 2024 End: November 19, 2024 Dr. Amairani Sheth MD Referring Provider Active Start: November 19, 2024 End: November 19, 2024 Goals (unrecognized section and content) Goals may be documented in a n alternate section (unrecognized sect ion and content) No Status Records FoundNo Status Records FoundNo Status Records Found INFORMATION SOURCE (unrecogn ized section and content) DATE CREATED AUTHOR 12/16/2023 [facility] ([place]) DATE CREATED AUTHOR AUTHOR'S ORGANIZ ATION 03/02/2024 [facility] DATE CREATED AUTHOR AUTHOR'S ORGANIZ ATION 03/14/2025 [facility] FOR RECORDS PERTAINING TO PATIENTS WHO ARE [...] BE BASED ON THE PRIMARY CLINICAL RECORDS. [employer] [facility]. provides no warranty or guarantee of the accuracy or completeness of information in this document.
[2025-05-08 12:26] LABS: Hematocrit 37.6 % (40-54); Hemoglobin 12.1 g/dL (13.0-16.5); Immature Granulocytes Count 0.020 X10^3/uL (0.0-0.0); Mean Corp Hgb Conc 32.2 g/dL (32-36); Mean Corpuscular Volume 65.1 fL (80-94); Mean Platelet Vol. 9.6 fl (6.2-12.0); NRBC Flagged by Analyzer 0 % (0-5); POSITIVE MORPHOLOGY YES; Platelet Count 228 K/mm3 (150-450); RBC Distribution Width CV 20.9 % (11.6-14.6); RBC Distribution Width SD 45.0 fl (35.1-43.9); Red Blood Count 5.78 M/mm3 (4.6-6.2); White Blood Count 7.7 K/mm3 (4.4-11.0)
[2025-05-08 12:27] LABS: Differential Indicated SCAN CRITERIA MET
[2025-05-08 12:45] LABS: AST(SGOT) 41 U/L (<=37); Alanine Aminotransfer ALT/SGPT 44 U/L (<=46); Albumin, Serum 4.4 g/dL (3.4-4.8); Alkaline Phosphatase 66 U/L (40-129); Anion Gap 12 (7-18); BUN 15 mg/dL (4-19); BUN/Creat Ratio 11.6 RATIO (10-20); Calcium,Total 9.3 mg/dL (7.6-11.0); Carbon Dioxide 23.1 mmol/L (20.0-29.0); Chloride 107 mmol/L (96-106); Globulin 2.0 g/dL (2.2-4.2); Glucose 188 mg/dL (70-99); Potassium 4.1 mmol/L (3.5-5.1)
[2025-05-08 12:52] LABS: Anisocytosis 2+
== END | disposition home or self-care (01) ==
LOC: MTLAB 10:39
PROVIDERS: PCP Registered Nurse; Referring Provider Internal Medicine Rheumatology; Visit Provider Internal Medicine Rheumatology
DX: M06.4 Inflammatory polyarthropathy (principal); Z79.899 Other long term (current) drug therapy
CPT/HCPCS: 36415; 80053; 85025